=== PATIENT | male | born 1930 | race Caucasian/White ===

== ENCOUNTER 2017-07-22 18:23 | Inpatient (IN) ==
[2017-07-22] MEDS ORDERED: Aspirin 81 MG TAB.CHEW PO ONE (19:04)
--- NOTE | 2017-07-22 19:04 | Emergency Department Note ---
Disposition Clinical Impression: Elevated troponin, ST segment changes on electrocardiogram Disposition: Admitted As Inpatient Condition: Fair Time of Disposition: 21:02 Chest Pain HPI - General Chief Complaint: ED Chest Pain Stated Complaint: CP/Weakness Time Seen by Provider: 07/22/17 18:26 Source: patient, EMS Mode of arrival: EMS Limitations: no limitations Vital Signs Reviewed: Yes Nursing Notes Reviewed: Yes - History of Present Illness HPI Narrative: 78-year-old male presented to the ED from the [place] via EMS for elevated troponins and chest pain. Upon arrival he is not having any chest pain at this time. They stated that he had an increasing troponin from 0.0-2.06. They did give him a baby aspirin while there. Patient has had a recent negative stress test as well as echocardiogram at the [place] he was not given any nitroglycerin while there. He states that the chest pain started a couple days ago and this has been slow and increasing pain. He states at one time it is probably 5 out of 10 nonradiating substernal. He stated there was no left arm or jaw pain. He states there is no nausea or vomiting. He has no other complaints at this time patient only has a history of hypertension hyperlipidemia. Severity scale (1-10): 0 - Related Data Home Medications Medication Instructions Recorded Confirmed Acetaminophen [Tylenol] 650 mg PO Q6HR PRN 07/22/17 07/22/17 Aspirin Enteric Coated [Aspirin EC] 81 mg PO DAILY 07/22/17 07/22/17 Atorvastatin Calcium [Lipitor] 80 mg PO HS 07/22/17 07/22/17 Indapamide [Lozol] 2.5 mg PO DAILY 07/22/17 07/22/17 Lactose-Reduced Food [Ensure Plus] 1 bottle PO DAILY 07/22/17 07/22/17 Meclizine HCl [Verticalm] 25 mg PO TID PRN 07/22/17 07/22/17 Multivitamin [Multi-Day Vitamins] 1 each PO DAILY 07/22/17 07/22/17 Potassium Chloride [K-Tab ER] 20 meq PO DAILY 07/22/17 07/22/17 Primidone [Mysoline] 50 mg PO Q8HR 07/22/17 07/22/17 Propranolol HCl 40 mg PO BID 07/22/17 07/22/17 Tamsulosin [Flomax] 0.4 mg PO HS 07/22/17 07/22/17 clonazePAM [Klonopin] 0.5 mg PO HS 07/22/17 07/22/17 hydrOXYzine pamoate [HydrOXYzine 25 mg PO DAILY PRN 07/22/17 07/22/17 Pamoate] Allergies Allergy/AdvReac Type Severity Reaction Status Date / Time gabapentin AdvReac See Verified 07/22/17 19:07 Comments All systems ED: reviewed and negative except as stated. Constitutional: Denies: fever, chills, weakness, weight change Eyes: Denies: eye pain, eye discharge, vision change ENT ED: Denies: ear pain, throat pain, dental pain, hearing loss, epistaxis, congestion, dysphagia Cardiovascular: Reports: chest pain (Earlier today but not currently.). Denies : palpitations, dyspnea on exertion, edema, syncope Respiratory: Denies: cough, dyspnea, wheezes, hemoptysis, stridor Gastrointestinal: Denies: abdominal pain, nausea, vomiting, diarrhea, constipation, hematemesis, melena, hematochezia Genitourinary: Denies: urgency, dysuria, frequency, hematuria Musculoskeletal: Denies: back pain, neck pain, arthralgia, myalgia Integumentary: Denies: rash, abrasion, lesions Neurological: Denies: headache, weakness, numbness, paresthesias, confusion, abnormal gait, vertigo Psychiatric: Denies: anxiety, depression, suicidal thoughts, homicidal thoughts , auditory hallucinations, visual hallucinations Endocrine: Denies: fatigue Hematological/Lymphatic: Denies: easy bleeding, easy bruising Allergic/Immunologic: Denies: facial swelling, urticaria Chest Pain PMH - Past Medical History Medical history: Reports: coronary artery disease, diabetes, hyperlipidemia, hypertension, other Psychiatric history: Reports: no psych history - Social History Smoking Status: Former smoker Alcohol use: Reports: none Drug use: Reports: none Physical Exam - General Limitations: no limitations General appearance: alert - Head Head exam: atraumatic, normocephalic, normal inspection - Eye Eye exam: Present: normal appearance, PERRL, EOMI - ENT ENT exam: normal exam, normal oropharynx, mucous membranes moist - Neck Neck exam: Present: normal inspection, full ROM, trachea midline - Chest Chest inspection: Present: normal inspection, symmetric chest wall rise - Respiratory Respiratory exam: Present: normal lung sounds bilaterally - Cardiovascular Cardiovascular exam: Present: regular rate, normal rhythm, normal heart sounds - Abdominal Exam Abdominal exam: Present: soft, Non-Tender, normal bowel sounds. Absent: tenderness, distention, guarding, rebound, rigidity - Extremities Exam Extremities exam: Present: normal inspection, full ROM. Absent: tenderness, pedal edema - Back Exam Back exam: Present: normal inspection, full ROM. Absent: tenderness, CVA tenderness (R), CVA tenderness (L) - Neurological Exam Neurological exam: Present: alert, oriented X3 - Skin Skin exam: Present: warm, dry, intact, normal color Course Course Narrative: 86-year-old male presents to the ED complaining of chest pain. He upon arrival did not have any chest pain but did have elevated troponin at the [place]. We will repeat the troponin, as the last one from the [place] was 0.06 the one previously 3 hours prior to that was 0.03. We also get an EKG. Chest x-ray was done which showed no acute findings. All other labs were normal for him. We are not and repeat those at this time. We will contact the aerospace project engineer most likely to have this patient further examined. - Reevaluation(s) Reevaluation #1: Second troponin came back at 0.10 which is elevated from the one at the [place]. Repeat EKG was done which all show sodium ST elevation and depression. We will contact Dr. Ryan and sent him the EKGs so he can make a decision if he wants to do the catheterization today. Patient is still pain free. And is now getting the heparin. We did not do heparin bolus as he was given Lovenox at the [place] prior to arrival. And also still given the Nitropaste. - Consultations Consultation #1: Consulted the aerospace project engineer and spoke with Dr. Ryan who said that he wanted a repeat troponin and repeat EKG. He said if the troponin is elevated to call him back. He also recommended to start on a heparin drip and also give him nitroglycerin paste to help lower the blood pressure. He said then to admit to the hospitalist service and consult cardiology. Time: 19:15 Consultation #2: Dr. Ryan called back after being paged multiple times after I sent the text message of the EKGs to him. and he stated that the ST elevation is most likely from an old infarct and he is not going to do the catheter today and wants to continue with the management plan admit to the hospitalist. Time: 20:49 Consultation #3: Spoke with Dr. Liu the hospitalist explained to Him the patient and I spoke with Dr. Ryan. They agreed to accept the patient and consult with cardiology. Explain the assessment and plan to them and they understand this. Time: 20:49 Vital Signs Temperature 98.9 F 07/22/17 18:24 Pulse Rate 60 07/22/17 18:24 Respiratory Rate 16 07/22/17 18:24 Blood Pressure 173/87 07/22/17 18:24 O2 Sat by Pulse Oximetry 97 07/22/17 18:24 Temperature 97.6 F 07/22/17 22:23 Pulse Rate 66 07/22/17 22:23 Respiratory Rate 15 07/22/17 22:23 Blood Pressure 144/76 07/22/17 22:23 O2 Sat by Pulse Oximetry 98 07/22/17 22:23 Oxygen Delivery Oxygen Delivery Nasal Cannula Chest Pain - MDM Narrative Medical decision making narrative: 6-year-old male presents to the ED complaining of elevated troponin coming from the [place] via EMS. He did have chest pain when he arrived to the [place] but did not when he arrived here to the emergency Department. Chest x-ray as well as normal labs were done at the [place] prior to arrival and we reviewed those in his chart that was given here. So those were not done here. They stated he had a troponin of 0.02 that elevated to 0.06 3 hours later. We did EKG when he arrived which showed ST elevation in leads V1 through V3 and ST depression in V5 through V6. Upon the second troponin that we did here in the emergency department being elevated to 1.0 we decided to repeat EKG. Dr. Ryan was consulted and refers have the elevated troponin. He recommended we start her on heparin and nitro paste due to his hypertension. We did this and he also recommended that we call him after the second troponin to be sure that he did not want do a catheter. Patient was still pain free at this time so we contacted Dr. Ryan and he asked that I send the EKGs to him. This occurred at 1958. We then paged him multiple times and he never pays back. When he did contact me the last time he stated that he detected name but I never did get a text message on my phone. He stated that because the patient is still pain free at this time we will not go ahead with activating the STEMI alert and they will see the patient in the morning as he is artery on heparin and has been Nitropaste on. I relayed this to the patient and the patient agrees with this plan. I spoke with Dr. Liu the admitting hospitalist who agreed to accept the patient with a cardiology consult. Patient was admitted and is still chest pain-free he is stable at this time and vital signs are also stable. - Medical Records Medical records reviewed: Yes I reviewed the patient's medical records. - Lab Data Lab results reviewed: Yes I reviewed the patient's lab results. Result diagrams: 07/22/17 18:35 Lab Results 07/22/17 07/22/17 07/22/17 Range/Units 18:35 18:35 18:35 WBC 4.3 (4.3-11.1) K/mcL RBC 3.58 L (4.19-5.50) M/mcL Hgb 12.4 L (12.9-16.9) g/dL Hct 36.2 L (37.5-50.1) % MCV 101.1 H (83.0-100.0) fL MCH 34.6 H (28.0-33.3) pg MCHC 34.3 (31.6-35.5) g/dL RDW 13.3 (11.5-14.5) % Plt Count 185 (140-400) K/mcL MPV 10.0 (9.4-12.4) fL Immature Plt Fraction 2.7 (1.1-6.1) % PT 12.2 H (9.4-12.1) Seconds INR 1.1 APTT 37.5 H (26.0-36.0) Seconds Troponin I 0.10 H* (0-0.03) ng/mL - Radiology Data Radiology results reviewed: Yes I reviewed the patient's radiology results. - EKG Data EKG attestation: Yes I reviewed and interpreted this EKG. EKG results narrative: First EKG done at 1826 and reviewed by myself and the attending showed normal sinus rhythm at a rate of 68, ID interval 174, QRS 114, QTC 414 with a left shift. There is signs of ST elevation in leads V1 through V3 with ST depression in V5 through V6. No signs of any T-wave abnormalities. No signs of heart strain, hypertrophy, heart blocks. There is no old EKG to compare with. Repeat EKG was done after second elevated troponin at 1944 which was reviewed myself and the attending which showed normal sinus bradycardia. Rate of 55, ID interval 188, QRS 116, QTC 447 with a left shift. There was ST elevation in leads V1 through V3 and ST depression in V5 through V6 that is the same as the previous EKG. There is no other acute changes when compared with the earlier EKG. EKG shows normal: sinus rhythm, intervals, QRS complexes Rate: normal Rhythm: NSR [place]/QRS: left axis deviation ST segment elevation in: v1, v2, v3 ST segment depression in: v5, v6 When compared to previous EKG there are: previous EKG unavailable Interpretation: nonspecific ST-T wave changes (After speaking with Dr. Ryan the addiction psychiatrist he believes this to be an old ischemic changes.) Heart Score - Score History: Moderately Suspicious EKG: Non Specific repolarisation Disturbance Age: Greater than 65 Risk Factors: Equal/Greater than 3 risk factor or history of atherosclerotic disease Troponin: 1-3x normal limit HEART Score Total: 7 S.B.A.R. - S.B.A.R. Transition of Care: Spoke with Dr. Liu the hospitalist and explained To him history and physical as well as assessment and plan on the patient also stated that I spoke with Dr. Ryan the addiction psychiatrist on what the expected management is placed in his agreed to accept the patient to the hospitalist service and a telemetry bed. Situation: Demographics, MOA Background: Presenting Complaint, Relevant PMH, Meds, & Allergies Assessment: Vital Signs, Course and respsone to treatment, Exam Concerns, Patient/Family Expectation, Pertinant Lab Results, Outstanding Labs Recommendation: Barrier(s) to disposition, Recommendation based on pending studies, treatments, or consults S.B.A.R. Report Given to: Dr. Liu S.B.A.R. Repor Time: 21:03 Attestation Statement - Attestation Attestation: I, Crow Valadez, examined this patient and my medical decision-making was reviewed with the DELIN[employer] PREVENTION SOCIAL WORKER/PA/Advanced Practice Nurse/Resident Physician. I agree with the documented findings, disposition and treatment plan as described except to the extent set forth below. 78-year-old male presents to emergency department from the [place] after being evaluated for chest pain and having a returned positive troponin. Patient initial troponin returned normal at 0.0 two-hour repeat returned positive at 0.06. She is pain-free in the emergency department now. His EKG shows sinus rhythm with rate of [address] elevation in leads V1 through V3 with ST depressions in leads V5 and 6. This EKG was directed to the interventionalist after the resident spoke with him regarding the patient's case and presentation. Dr. Ryan recommended the patient be admitted to the hospitalist with heparin and he would evaluate the patient in the morning. Patient continued to be chest pain free throughout the stay in the emergency department.
[2017-07-22] MEDS ORDERED: *HR* Heparin 5,000 UNIT/ML VIAL IVP ONE (19:11)
[2017-07-22] MEDS ORDERED: *HR* Heparin 5,000 UNIT/ML VIAL IVP PRN ×2 (19:11)
[2017-07-22] MEDS ORDERED: Nitroglycerin 1 INCH/GM PACKET TP ONE (19:12)
[2017-07-22 19:33] LABS: Hematocrit 36.2 % (37.5-50.1); Hemoglobin 12.4 g/dL (12.9-16.9); Immature Platelets 2.7 % (1.1-6.1); Mean Corpuscular HGB Conc 34.3 g/dL (31.6-35.5); Mean Corpuscular Hemoglobin 34.6 pg (28.0-33.3); Mean Corpuscular Volume 101.1 fL (83.0-100.0); Red Blood Count 3.58 M/mcL (4.19-5.50); Red Cell Distribution Width 13.3 % (11.5-14.5)
[2017-07-22 19:37] LABS: INR 1.1; Prothrombin Time 12.2 Seconds (9.4-12.1)
[2017-07-22 19:39] LABS: Activated Partial Thrombo Time 37.5 Seconds (26.0-36.0)
[2017-07-22] MEDS: Heparin 25,000 UNIT/500 ML D5W 25,000 UNIT/500 ML MLS IVC SCH (19:54)
[2017-07-23] MEDS ORDERED: Acetaminophen 325 MG TABLET PO PRN (04:03)
[2017-07-23] MEDS ORDERED: Nitroglycerin 0.4 MG TAB.SUBL SL PRN (04:03)
[2017-07-23] MEDS ORDERED: *HR* Morphine 2 MG/ML SYRINGE IVP PRN (04:03)
[2017-07-23] MEDS ORDERED: Dextrose Gel 15 GM PO PRN ×2 (04:03)
[2017-07-23] MEDS ORDERED: Naloxone 0.4 MG/ML INJ IVP PRN (04:03)
[2017-07-23] MEDS ORDERED: Ondansetron 4 MG/2 ML VIAL IVP PRN (04:03)
[2017-07-23] MEDS ORDERED: *HR* Dextrose 50 % in Water (Syg) 50 ML SYRINGE IVP PRN (04:03)
[2017-07-23] MEDS ORDERED: D5% in Water 1,000 ML IVC PRN (04:03)
--- NOTE | 2017-07-23 04:03 | Internal Med History&Physical ---
<Christopher Maguire - Last Filed: 07/23/17 04:12> Date of Encounter: 07/23/17 Time of Encounter: 03:40 Assessment and Plan (1) NSTEMI (non-ST elevated myocardial infarction) Current visit: Yes Status: Acute Patient presented to the CT originally reporting and had episodic chest pain since Wednesday. Reports substernal radiating to his jaw, made worse by exertion. He was found to have elevated troponins (0.04 -> 0.06) is a concerning EKG changes. After the second troponin came back even higher he was transferred for further workup. At [place] he had further elevated troponins ( 0.10) 8 EKG was suggestive of recent heart attack. Interventional cardiology was consulted and felt he did not need to go to catheter lab at that time. Patient was placed on a heparin drip with cardiology consult pending. Patient has no complaints of chest pain at this time. Continue heparin drip We will consult cardiology Continue daily aspirin as patient received full aspirin last night Supplemental oxygen as needed, wean as tolerated Cardiogram Continue to trend troponins Continue home atorvastatin 80 mg We will continue home beta campos when heart rate increases Nothing by mouth for now (2) Diabetes mellitus Current visit: Yes Status: Acute Patient reportedly type II diabetic, no insulin or oral hypoglycemics on his home medicine list. We will start low-dose Lasix scale insulin Qualifiers: Diabetes mellitus type: type 2 Diabetes mellitus complication status: with unspecified complications Diabetes mellitus intermediate school teacher insulin use: without intermediate school teacher use Qualified Code(s): E11.8 - Type 2 diabetes mellitus with unspecified complications (3) HTN (hypertension) Current visit: Yes Status: Acute Patient on propranolol at home. Will add when patient heart rate improves as he has a heart rate of 55 currently Qualifiers: Hypertension type: essential hypertension Qualified Code(s): I10 - Essential (primary) hypertension (4) DVT prophylaxis Current visit: Yes Status: Acute Patient on heparin drip on account of an STEMI (5) Benign essential tremor Current visit: Yes Status: Acute Stable Internal Medicine - H&P: HPI Chief complaint: Chest Pain, elevated trops Admitted From: Long-term Nursing Facility History of present illness: Mr. Lopez is a 86 year old male with prior medical history of CAD, diabetes, and GERD who presents to [facility] from the [facility] due to chest pain and elevated troponins. He states he had chest pain beginning Wednesday while at rest there was substernal in nature. He describes it as a throbbing and radiating into his jaw. He said it was severe and would be made worse by walking or exerting himself. He states it was somewhat episodic in that first episode on Wednesday was the worst lasting 45 minutes. It did bother him again Wednesday morning at roughly 1 AM and woke him from sleep and again later in the day. These episodes did not last long and were not as severe. He denies having diaphoresis, chills, shortness of breath, or nausea. He reports having a slight headache but not that significant. He was brought to [place]. At the CT his troponins were trending upward starting at 0.04 and then 0.[address] segment changes on EKG. He was transferred to [place] where his next troponins found to be 0.10 and repeat EKGs showed some T-wave and ST segment changes. Interventional radiology was consulted and reviewed the chest x-rays but did not feel that he needs to be seen last night. He was started on heparin drip and reports he is now chest pain-free. Past Med Surg Social Fam HX - Past Medical History Medical history: coronary artery disease, diabetes, hyperlipidemia, hypertension , other Psychiatric history: no psych history - Social History Smoking Status: Former smoker Smokeless Tobacco Status: No Alcohol use: none Drug use: none Internal Medicine - H&P: Meds Acetaminophen [Tylenol] 650 mg PO Q6HR PRN 07/22/17 [History] Aspirin Enteric Coated [Aspirin EC] 81 mg PO DAILY 07/22/17 [History] Atorvastatin Calcium [Lipitor] 80 mg PO HS 07/22/17 [History] Lactose-Reduced Food [Ensure Plus] 1 bottle PO DAILY 07/22/17 [History] Meclizine HCl [Verticalm] 25 mg PO TID PRN 07/22/17 [History] Multivitamin [Multi-Day Vitamins] 1 each PO DAILY 07/22/17 [History] Potassium Chloride [K-Tab ER] 20 meq PO DAILY 07/22/17 [History] RX: Indapamide [Lozol] 2.5 mg PO DAILY 07/22/17 [History] RX: Primidone [Mysoline] 50 mg PO Q8HR 07/22/17 [History] RX: Propranolol HCl 40 mg PO BID 07/22/17 [History] RX: hydrOXYzine pamoate [HydrOXYzine Pamoate] 25 mg PO DAILY PRN 07/22/17 [ History] Tamsulosin [Flomax] 0.4 mg PO HS 07/22/17 [History] clonazePAM [Klonopin] 0.5 mg PO HS 07/22/17 [History] 3 Allergy/AdvReac Type Severity Reaction Status Date / Time gabapentin AdvReac See Verified 07/22/17 19:07 Comments Review of systems: Gen: Denies fever, denies chills, denies weakness, denies fatigue CV: Reports chest pain made worse by exertion, denies palpitations Resp: Denies shortness of breath, denies dyspnea, denies pleuritic pain, denies coughing, denies changes in phlegm production, denies wheeze GI: Denies nausea, denies vomiting, denies abdominal pain, denies constipation, denies diarrhea, denies hematochezia, denies melena Neuro: Reports headache, denies confusion, denies focal weakness, denies numbness, denies tingling, denies vision changes : Denies flank pain, denies dysuria, denies hematuria - Constitutional Vitals: Temp Pulse Resp BP Pulse Ox 97.6 F 66 15 144/76 98 07/22/17 22:23 07/22/17 22:23 07/22/17 22:23 07/22/17 22:23 07/22/17 22:23 Exam: General: Cooperative, pleasant, no acute distress, alert and oriented 3, answers questions appropriately HEENT: Normocephalic, atraumatic, neck supple, trachea midline, Conjunctiva pink , sclera anicteric, EOMI, PERRL, oral mucosa moist, no orophargeal erythema or exudates Respiratory: No accessory muscle usage, clear to auscultation bilaterally, no wheezes/rhonchi/rales appreciated Cardiovascular: Regular rate and rhythm, S1 and S2 present, no murmurs/rubs/ gallops/clicks appreciated, no carotid bruits on auscultation GI/abdominal: Nondistended, nontender, soft, normal bowel sounds, no peritoneal signs Extremities: No calf tenderness, noncyanotic, no pedal edema appreciated, warm, lower extremity pulses palpable and symmetrical Neurological: Alert and oriented 3, no facial droop, no focal deficits Skin: Dry, intact, normal color Internal Med - H&P Results - Labs CBC & Chem 7: 07/22/17 18:35 <Addy Mae - Last Filed: 07/23/17 05:28> Date of Encounter: 07/23/17 Internal Medicine - H&P: HPI History of present illness: Mr. Lopez is a 86 year old male All Systems PM: A 10-system review of systems was performed and is negative for pertinent findings except as documented above in the HPI. - Constitutional Vitals: Temp Pulse Resp BP Pulse Ox 97.6 F 66 15 144/76 98 07/22/17 22:23 07/22/17 22:23 07/22/17 22:23 07/22/17 22:23 07/22/17 22:23 Internal Med - H&P Results - Labs CBC & Chem 7: 07/23/17 04:21 07/23/17 04:21 Labs: Short CBC 07/23/17 Range/Units 04:21 WBC 4.9 (4.3-11.1) K/mcL Hgb 11.6 L (12.9-16.9) g/dL Hct 34.6 L (37.5-50.1) % Plt Count 142 (140-400) K/mcL Neutrophils # 2.2 (1.6-8.9) K/mcL BMP 07/23/17 04:21 Sodium 135 L Potassium 4.0 Chloride 98 Carbon Dioxide 27 BUN 17 Creatinine 0.79 Glucose 111 H Calcium 9.3 Cardiac Enzymes 07/23/17 Range/Units 04:21 Troponin I 0.11 H* (0-0.03) ng/mL - Attending Attestation I examined this patient and my medical decision-making was reviewed with the Resident Physician. I agree with the documented findings, disposition and treatment plan as described except to the extent set forth below. Patient is a 86-year-old male with past medical history coronary artery disease , diabetes, hyperlipidemia and hypertension. He presents to the ED with complaints of chest pain. He was also found to have elevated troponin at the CT. Patient is being admitted for non-ST elevation RI. He is on IV heparin. Aspirin and statin will be continued. Interventional cardiology was consulted, advised to continue heparin. Patient may need heart catheter in a.m. No other acute events or complaints.
[2017-07-23 04:30] LABS: Basophils % 0.6 %; Eosinophils # 0.3 K/mcL (0.0-0.6); Eosinophils % 5.1 %; Hematocrit 34.6 % (37.5-50.1); Hemoglobin 11.6 g/dL (12.9-16.9); Immature Granulocytes % 0.2 % (0-4); Lymphocytes # 1.9 K/mcL (0.6-4.6); Lymphocytes % 39.1 %; Mean Corpuscular HGB Conc 33.5 g/dL (31.6-35.5); Mean Corpuscular Hemoglobin 34.3 pg (28.0-33.3); Mean Corpuscular Volume 102.4 fL (83.0-100.0); Mean Platelet Volume 9.1 fL (9.4-12.4); Monocytes # 0.5 K/mcL (0.0-1.3); Monocytes % 10.4 %; Neutrophils # 2.2 K/mcL (1.6-8.9); Platelet Count 142 K/mcL (140-400); Red Blood Count 3.38 M/mcL (4.19-5.50); Red Cell Distribution Width 13.5 % (11.5-14.5); Segmented Neutrophils % 44.6 %
[2017-07-23 04:40] LABS: Hemoglobin A1C 5.8 %
[2017-07-23 04:44] LABS: BUN/Creatinine Ratio 22 (6-26); Blood Urea Nitrogen 17 mg/dL (8-26); Calcium 9.3 mg/dL (8.6-10.8); Carbon Dioxide 27 mEq/L (19-29); Chloride 98 mEq/L (98-109); Chol/HDL Ratio 2.1 (0-4.9); Cholesterol 177 mg/dL (< 200); Glucose 111 mg/dL (70-99); HDL Cholesterol 84 mg/dL (40-59); LDL Cholesterol,Calculated 86 mg/dL (0-99); Magnesium 1.5 mg/dL (1.6-2.6); Osmolality,Calculated 282 (280-300); Phosphorous 3.5 mg/dL (2.3-4.7); Sodium 135 mEq/L (136-145); Triglycerides 37 mg/dL (< 150); eGFR For African Americans > 60 (> 60); eGFR For Non-African Americans > 60 (> 60)
[2017-07-23] MEDS ORDERED: Pantoprazole 40 MG VIAL IVP SCH (09:00)
[2017-07-23] MEDS: Multivit/Ca/Min/Fe/FA 1 TAB TABLET PO SCH (09:23)
[2017-07-23] MEDS: Aspirin 81 MG TAB.CHEW PO SCH (09:23)
[2017-07-23] MEDS: Primidone 50 MG TABLET PO SCH ×3 (09:23→23:51)
[2017-07-23] MEDS: Insulin LISPRO 300 UNITS/3 ML VIAL SQ SCH ×3 (09:24→17:03)
--- NOTE | 2017-07-23 10:28 | Cardiology Consult Note ---
Date of Encounter: 07/23/17 Time of Encounter: 10:00 Assessment and Plan (1) NSTEMI (non-ST elevated myocardial infarction) Current Visit: Yes Status: Acute Reports typical chest pain symptoms this past Wednesday and Wednesday. Troponin 0.04, 0.06, 0.10, 0.11. Anterior ST/T wave changes noted on ECG--no old ECG for comparison. Chest pain free upon exam. Cardiac rehab consulted. Hx of negative nuclear stress test with preserved LVEF in 2014. Discussed medical management vs. ischemic evaluation; patient is undecided. Will further review with Dr. Crow Lester. Check echocardiogram to evaluate EF. If no significant abnormalities noted, reasonable to treat medically; patient is agreeable. Continue heparin gtt, asa, and statin. Will add low dose betablocker and plavix. Will continue to follow. (2) HTN (hypertension) Current Visit: Yes Status: Chronic Hypertensive upon presentation, BP 173/87. Will add low dose betablocker, continue to monitor and make changes as necessary. Qualifiers: Hypertension type: essential hypertension Qualified Code(s): I10 - Essential (primary) hypertension Discussion w patient/family: The assessment and plan as outlined above was discussed with the patient and/or family members who expressed understanding and agreement. All questions were answered. Thank you for involving us in the care of your patient. Please call with any questions. The patient will be discussed and reviewed with Dr. Crow Lester; changes to be made accordingly. History of Present Illness Consult date: 07/23/17 Requesting physician: Christopher Maguire Consult reason: Elevated troponin Chief complaint: Chest pain/headache History of present illness: Mr. Lopez is a 86 year old male with PMHx significant for HTN, HLD and tremors who presented to the [place] yesterday with CC of "throbbing headache." He also notes x2 episodes of mid-sternal chest discomfort with radiation to neck/ jaw that started on Wednesday. Episodes of chest discomfort lasted 20-30 minutes, occurred a rest and resolved without intervention. He denies prior history of chest pain/discomfort. Upon arrival to [place], troponin was 0.04, then 0.06. No prior significant cardiac history. He was then sent to [facility]. [facility]--N[facility] stress test (non-exercise) in 2014, was negative for ischemia or infarct, gated EF=64%. Past Med Surg Social Fam HX - Past Medical History Attestation: Yes The following information was validated with the patient. Source: patient Medical history: hyperlipidemia, hypertension, other (tremors) Psychiatric history: no psych history - Past Surgical History Surgical History: herniorrhaphy (bilateral inguinal) - Social History Smoking Status: Former smoker Smokeless Tobacco Status: No Alcohol use: none Drug use: none - Family History Brother Hx Family Cardiac Disorders: Yes ("heart problems" ) Hx Family Neurologic Disorders: Yes (CVA) Medications and Allergies Acetaminophen [Tylenol] 650 mg PO Q6HR PRN 07/22/17 [History] Aspirin Enteric Coated [Aspirin EC] 81 mg PO DAILY 07/22/17 [History] Atorvastatin Calcium [Lipitor] 80 mg PO HS 07/22/17 [History] Indapamide [Lozol] 2.5 mg PO DAILY 07/22/17 [History] Lactose-Reduced Food [Ensure Plus] 1 bottle PO DAILY 07/22/17 [History] Meclizine HCl [Verticalm] 25 mg PO TID PRN 07/22/17 [History] Multivitamin [Multi-Day Vitamins] 1 each PO DAILY 07/22/17 [History] Potassium Chloride [K-Tab ER] 20 meq PO DAILY 07/22/17 [History] Primidone [Mysoline] 50 mg PO Q8HR 07/22/17 [History] Propranolol HCl 40 mg PO BID 07/22/17 [History] Tamsulosin [Flomax] 0.4 mg PO HS 07/22/17 [History] clonazePAM [Klonopin] 0.5 mg PO HS 07/22/17 [History] hydrOXYzine pamoate [HydrOXYzine Pamoate] 25 mg PO DAILY PRN 07/22/17 [History] 3 Allergy/AdvReac Type Severity Reaction Status Date / Time gabapentin AdvReac See Verified 07/22/17 19:07 Comments All Systems Review: A 10-system review of systems was performed and is negative for pertinent findings except as documented above in the HPI. - Cardiovascular Cardiovascular: as per HPI Physical Examination General: Conversant, No Apparent Distress, Other (tremors noted) HEENT: Atraumatic, Normocephaly Cardiac: Reg Rate and Rhythm, Normal S1 and S2 Lungs: Normal Breath Sounds Neuro: Alert and responsive Abdomen: Soft Skin: No rashes noted on visualized skin Musculoskeletal: No Chest Wall Tenderness Extremities: Other (mild BLE edema, pre-tibial) Results 07/23/17 04:21 07/23/17 04:21 Lab Results 07/23/17 08:07 APTT 102.7 H Active Medications Acetaminophen (Tylenol) 650 mg PO Q6HR PRN PRN Reason: Mild Pain (1-3) or fever Stop: 01/22/18 04:04 Aspirin (Aspirin) 81 mg PO DAILY PRANAY Stop: 01/22/18 09:01 Last Admin: 07/23/17 09:23 Dose: 81 mg Atorvastatin Calcium (Lipitor) 80 mg PO HS PRANAY Stop: 01/22/18 21:01 Clonazepam (Klonopin) 0.5 mg PO HS PRANAY Stop: 01/22/18 21:01 Heparin Sodium (Porcine) (Heparin) 4,000 unit IVP Q6HR PRN PRN Reason: SEE COMMENTS Stop: 01/21/18 19:12 Heparin Sodium (Porcine) (Heparin) 2,000 unit IVP Q6H PRN PRN Reason: SEE COMMENTS Stop: 01/21/18 19:12 Heparin Sodium/Dextrose (Heparin 25,000 Unit/500 Ml D5w) 25,000 unit in 500 mls @ 18.18 mls/hr IVC .Q24H PRANAY; 12 UNIT/KG/HR PRN Reason: Protocol Stop: 01/21/18 19:16 Last Titration: 07/23/17 09:39 Dose: 7.98 unit/kg/hr, 12.1 mls/hr Dextrose (Dextrose 5%) 1,000 mls @ 100 mls/hr IVC .Q10H PRN PRN Reason: HYPOGLYCEMIA Stop: 01/22/18 04:04 Insulin Human Lispro (Humalog) 0 units SQ HS PRANAY PRN Reason: Protocol Stop: 01/22/18 21:01 Insulin Human Lispro (Humalog) 0 units SQ TIDAC PRANAY PRN Reason: Protocol Stop: 01/22/18 07:31 Last Admin: 07/23/17 09:24 Dose: Not Given Meclizine HCl (Antivert) 25 mg PO TID PRN PRN Reason: DIZZINESS Morphine Sulfate (Morphine Sulfate) 4 mg IVP Q3H PRN PRN Reason: Severe Pain (7-10) Stop: 01/22/18 04:04 Multivitamins/Calcium (Thera M Plus) 1 tab PO DAILY PRANAY Stop: 01/22/18 09:01 Last Admin: 07/23/17 09:23 Dose: 1 tab Naloxone HCl (Narcan) 0.4 mg IVP Q2MIN PRN PRN Reason: Opioid Reversal Stop: 01/22/18 04:04 Nitroglycerin (Nitroglycerin) 0.4 mg SL Q5MIN PRN PRN Reason: Chest Pain Stop: 01/22/18 04:04 Ondansetron HCl (Zofran) 4 mg IVP Q8HR PRN PRN Reason: Nausea And Vomiting Stop: 01/22/18 04:04 Pantoprazole Sodium (Protonix) 40 mg IVP DAILY [facility] Stop: 01/22/18 09:01 Last Admin: 07/23/17 09:23 Dose: 40 mg Potassium Chloride (Potassium Chloride) 20 meq PO DAILY [facility] Stop: 01/22/18 09:01 Last Admin: 07/23/17 09:23 Dose: 20 meq Primidone (Mysoline) 50 mg PO Q8HR [facility] Stop: 01/22/18 08:01 Last Admin: 07/23/17 09:23 Dose: 50 mg - Imaging and Cardiology Echo: pending - EKG Interpretation EKG results cardiology: personally reviewed Consult Discharge Plan - Plan [facility]errals: [facility] [Primary Care Provider] -
[2017-07-23] MEDS: Metoprolol XL (24 HR) Succ 25 MG TAB.ER.24H PO SCH (13:42)
--- NOTE | 2017-07-23 17:57 | Internal Med Progress Note ---
Date of Encounter: 07/23/17 Time of Encounter: 10:00 - Assessment and plan (1) NSTEMI (non-ST elevated myocardial infarction) Current Visit: Yes Status: Acute Assessment and plan: Chest pain-free now. Cardiology consult appreciated. We will continue heparin drip, aspirin, Plavix, beta campos, and statin. Continue closely cardiac monitoring. Patient is not at high risk because he is on heparin drip, need close monitoring (2) DVT prophylaxis Current Visit: Yes Status: Acute Assessment and plan: Patient is on heparin drip (3) Diabetes mellitus Current Visit: Yes Status: Acute Assessment and plan: Patient is at diet control at home. Continue diabetic diet. Sliding-scale coverage Qualifiers: Diabetes mellitus type: type 2 Diabetes mellitus complication status: with unspecified complications Diabetes mellitus superintendent container terminal insulin use: without senior living use Qualified Code(s): E11.8 - Type 2 diabetes mellitus with unspecified complications (4) HTN (hypertension) Current Visit: Yes Status: Chronic Assessment and plan: Continue home medications Qualifiers: Hypertension type: essential hypertension Qualified Code(s): I10 - Essential (primary) hypertension (5) Benign essential tremor Current Visit: Yes Status: Acute - Time Spent With Patient Greater than 35 minutes - Subjective Interval history: Patient is a 86-year-old male admitted for NSTEMI. Past medical history is significant for diabetes, hypertension. Patient was seen and examined. Denies chest pain or shortness of breath at this point. State has episode of chest pain on Wednesday. Vitals are stable. Cardiology consult appreciated. Recommendation will be followed. - Constitutional Vitals: Temp Pulse Resp BP Pulse Ox 97.6 F 66 15 144/76 98 07/22/17 22:23 07/22/17 22:23 07/22/17 22:23 07/22/17 22:23 07/22/17 22:23 General appearance: Present: A&O X 3, no acute distress, answers questions appropriately - Head Head exam: Present: atraumatic, normocephalic - Eye Eye exam: Present: PERRL, conjuntiva pink, sclera anicteric Pupils: Present: PERRL - Neck Neck exam general surgery: Present: supple, trachea midline. Absent: lymphadenopathy - Respiratory Respiratory exam: Present: CTAB. Absent: accessory muscle use, rales, rhonchi, wheezes - Cardiovascular Cardiovascular exam: Present: RRR, +S1, +S2. Absent: diastolic murmur, gallop, rubs, systolic murmur - GI/Abdominal GI/Abdominal exam: Present: normal bowel sounds, soft, no peritoneal signs. Absent: distended, tenderness - Extremities Exam Extremities exam: Present: warm, radial pulses palpable and symmetrical. Absent : calf tenderness, cyanotic, pedal edema - Neurological Exam Neurological exam: Present: CN II-XII intact, oriented X3, no focal deficits. Absent: pronater drift, facial droop, speech deficit - Skin Skin exam: Present: dry, intact Internal Medicine: Result - Labs CBC & Chem 7: 07/23/17 04:21 07/23/17 04:21 Labs: Cardiac Enzymes 07/23/17 Range/Units 10:30 Troponin I 0.07 H* (0-0.03) ng/mL - ABG Interpretation ABG results: PT/INR, D-dimer PT 12.2 Seconds (9.4-12.1) H 07/22/17 18:35 Consult Discharge Plan - Plan [facility]errals: [facility] [Primary Care Provider] -
[2017-07-23] MEDS ORDERED: clonazePAM 0.5 MG TABLET PO SCH (21:00)
[2017-07-23] MEDS ORDERED: Insulin LISPRO 300 UNITS/3 ML VIAL SQ SCH (21:00)
[2017-07-24] MEDS: Heparin 25,000 UNIT/500 ML D5W 25,000 UNIT/500 ML MLS IVC SCH (05:19)
[2017-07-24 06:04] LABS: Basophils % 0.4 %; Eosinophils # 0.2 K/mcL (0.0-0.6); Eosinophils % 4.7 %; Hematocrit 30.7 % (37.5-50.1); Hemoglobin 10.6 g/dL (12.9-16.9); Immature Granulocytes % 0.2 % (0-4); Immature Platelets 2.3 % (1.1-6.1); Lymphocytes # 1.6 K/mcL (0.6-4.6); Lymphocytes % 32.2 %; Mean Corpuscular HGB Conc 34.5 g/dL (31.6-35.5); Mean Corpuscular Hemoglobin 35.1 pg (28.0-33.3); Mean Corpuscular Volume 101.7 fL (83.0-100.0); Mean Platelet Volume 9.2 fL (9.4-12.4); Monocytes # 0.6 K/mcL (0.0-1.3); Monocytes % 11.3 %; Neutrophils # 2.5 K/mcL (1.6-8.9); Platelet Count 155 K/mcL (140-400); Red Blood Count 3.02 M/mcL (4.19-5.50); Red Cell Distribution Width 13.4 % (11.5-14.5); Segmented Neutrophils % 51.2 %
[2017-07-24 06:16] LABS: BUN/Creatinine Ratio 22 (6-26); Blood Urea Nitrogen 17 mg/dL (8-26); Calcium 9.1 mg/dL (8.6-10.8); Carbon Dioxide 27 mEq/L (19-29); Chloride 97 mEq/L (98-109); Glucose 108 mg/dL (70-99); Osmolality,Calculated 276 (280-300); Potassium 3.9 mEq/L (3.5-4.5); Sodium 132 mEq/L (136-145); eGFR For African Americans > 60 (> 60); eGFR For Non-African Americans > 60 (> 60)
[2017-07-24] MEDS: Insulin LISPRO 300 UNITS/3 ML VIAL SQ SCH ×2 (07:51→11:37)
[2017-07-24 08:49] VITALS: BP 120/66
[2017-07-24] MEDS: Multivit/Ca/Min/Fe/FA 1 TAB TABLET PO SCH (09:00)
[2017-07-24] MEDS: Metoprolol XL (24 HR) Succ 25 MG TAB.ER.24H PO SCH (09:00)
[2017-07-24] MEDS: Primidone 50 MG TABLET PO SCH (09:00)
[2017-07-24] MEDS: Aspirin 81 MG TAB.CHEW PO SCH (09:00)
--- NOTE | 2017-07-24 10:00 | Cardiology Progress Note ---
Date of Encounter: 07/24/17 Time of Encounter: 08:30 Assessment and Plan (1) NSTEMI (non-ST elevated myocardial infarction) Current Visit: Yes Status: Acute Reports typical chest pain symptoms this past Wednesday and Wednesday. Peak troponin 0.11 with downward trend. Anterior ST/T wave changes noted on ECG- -no old ECG for comparison. Chest pain free upon exam. Cardiac rehab consulted. Hx of negative nuclear stress test with preserved LVEF in 2014. TTE: EF 55% normal wall motion. Discussed medical management vs. ischemic evaluation; patient elects to continue medical management given his advanced age and lack of symptoms. EF preserved with normal wall motion and he is chest pain free. Continue asa, statin, betablocker, and plavix. Can consider addition of long- acting nitrate in the future if needed. No further testing warranted from Cardiology standpoint; will sign-off. Will coordinate appt. in the outpatient setting. (2) HTN (hypertension) Current Visit: Yes Status: Chronic Hypertensive upon presentation, BP 173/87. Control improved with addition of BB. Qualifiers: Hypertension type: essential hypertension Qualified Code(s): I10 - Essential (primary) hypertension Discussion w patient/family: The assessment and plan as outlined above was discussed with the patient and/or family members who expressed understanding and agreement. All questions were answered. Thank you for involving us in the care of your patient. Please call with any questions. The patient was discussed and reviewed with Dr. Crow Lester; Cardiology will sign-off, please call with questions. Subjective Principal diagnosis: NSTEMI Interval history: Seen and examined. Denies recurrent chest pain/discomfort or headache overnight. He reports he feels well today and is ready for discharge. Objective Vital Signs, Last 4 Hours Pulse Resp BP Pulse Ox 07/24/17 09:00 96 07/24/17 08:48 66 18 120/66 97 General: Conversant, No Apparent Distress HEENT: Atraumatic, Normocephaly, Mucus Membranes Moist Neck: No JVD, Normal carotid pulses Cardiac: Reg Rate and Rhythm, Normal S1 and S2, No Murmur Lungs: Normal Breath Sounds, No Wheeze, Rales, Rhonchi Neuro: Alert and responsive, No focal deficits noted Abdomen: Soft, Non-Tender Skin: No rashes noted on visualized skin Musculoskeletal: No Chest Wall Tenderness Extremities: No Clubbing, No Cyanosis, No Edema, Normal Pulses Results 07/24/17 05:55 07/24/17 05:55 Lab Results 07/23/17 07/23/17 07/23/17 10:30 16:48 22:38 WBC Hgb Hct Plt Count APTT 62.5 H 52.0 H Sodium Potassium Chloride Carbon Dioxide BUN Creatinine Glucose Calcium Troponin I 0.07 H* 07/24/17 07/24/17 07/24/17 05:55 05:55 05:55 WBC 4.9 Hgb 10.6 L Hct 30.7 L Plt Count 155 APTT 91.9 H D Sodium 132 L Potassium 3.9 Chloride 97 L Carbon Dioxide 27 BUN 17 Creatinine 0.79 Glucose 108 H Calcium 9.1 Troponin I Active Medications Acetaminophen (Tylenol) 650 mg PO Q6HR PRN PRN Reason: Mild Pain (1-3) or fever Stop: 01/22/18 04:04 Aspirin (Aspirin) 81 mg PO DAILY PRANAY Stop: 01/22/18 09:01 Last Admin: 07/24/17 09:00 Dose: 81 mg Atorvastatin Calcium (Lipitor) 80 mg PO HS [facility] Stop: 01/22/18 21:01 Last Admin: 07/23/17 23:03 Dose: 80 mg Clonazepam (Klonopin) 0.5 mg PO HS [facility] Stop: 01/22/18 21:01 Last Admin: 07/23/17 23:04 Dose: 0.5 mg Clopidogrel Bisulfate (Plavix) 75 mg PO DAILY [facility] Stop: 01/22/18 10:46 Last Admin: 07/24/17 09:00 Dose: 75 mg Dextrose/Water (Dextrose 50% (Syg)) 25 ml IVP AD PRN PRN Reason: Hypoglycemia Stop: 01/22/18 04:04 Glucagon (Glucagen) 1 mg IM ONCE PRN PRN Reason: Hypoglycemia Stop: 01/22/18 04:04 Glucose (Gluctose) 15 gm PO ONCE PRN PRN Reason: Hypoglycemia Stop: 01/22/18 04:04 Glucose (Gluctose) 30 gm PO ONCE PRN PRN Reason: Hypoglycemia Stop: 01/22/18 04:04 Heparin Sodium (Porcine) (Heparin) 4,000 unit IVP Q6HR PRN PRN Reason: SEE COMMENTS Stop: 01/21/18 19:12 Heparin Sodium (Porcine) (Heparin) 2,000 unit IVP Q6H PRN PRN Reason: SEE COMMENTS Stop: 01/21/18 19:12 Last Admin: 07/23/17 23:48 Dose: 2,000 unit Heparin Sodium/Dextrose (Heparin 25,000 Unit/500 Ml D5w) 25,000 unit in 500 mls @ 18.18 mls/hr IVC .Q24H PRANAY; 12 UNIT/KG/HR PRN Reason: Protocol Stop: 01/21/18 19:16 Last Titration: 07/24/17 07:03 Dose: 9.96 unit/kg/hr, 15.1 mls/hr Dextrose (Dextrose 5%) 1,000 mls @ 100 mls/hr IVC .Q10H PRN PRN Reason: HYPOGLYCEMIA Stop: 01/22/18 04:04 Insulin Human Lispro (Humalog) 0 units SQ HS [facility] PRN Reason: Protocol Stop: 01/22/18 21:01 Last Admin: 07/23/17 23:04 Dose: Not Given Insulin Human Lispro (Humalog) 0 units SQ TIDAC [facility] PRN Reason: Protocol Stop: 01/22/18 07:31 Last Admin: 07/24/17 07:51 Dose: Not Given Meclizine HCl (Antivert) 25 mg PO TID PRN PRN Reason: DIZZINESS Metoprolol Succinate (Toprol Xl) 12.5 mg PO DAILY [facility] Stop: 01/22/18 10:46 Last Admin: 07/24/17 09:00 Dose: 12.5 mg Morphine Sulfate (Morphine Sulfate) 4 mg IVP Q3H PRN PRN Reason: Severe Pain (7-10) Stop: 01/22/18 04:04 Multivitamins/Calcium (Thera M Plus) 1 tab PO DAILY [facility] Stop: 01/22/18 09:01 Last Admin: 07/24/17 09:00 Dose: 1 tab Naloxone HCl (Narcan) 0.4 mg IVP Q2MIN PRN PRN Reason: Opioid Reversal Stop: 01/22/18 04:04 Nitroglycerin (Nitroglycerin) 0.4 mg SL Q5MIN PRN PRN Reason: Chest Pain Stop: 01/22/18 04:04 Omeprazole (Prilosec) 20 mg PO DAILY@0630 [facility] PRN Reason: Protocol Stop: 01/23/18 06:31 Last Admin: 07/24/17 05:21 Dose: 20 mg Ondansetron HCl (Zofran) 4 mg IVP Q8HR PRN PRN Reason: Nausea And Vomiting Stop: 01/22/18 04:04 Potassium Chloride (Potassium Chloride) 20 meq PO DAILY [facility] Stop: 01/22/18 09:01 Last Admin: 07/24/17 09:00 Dose: 20 meq Primidone (Mysoline) 50 mg PO Q8HR [facility]Y Stop: 01/22/18 08:01 Last Admin: 07/24/17 09:00 Dose: 50 mg Tamsulosin HCl (Flomax) 0.4 mg PO HS PRANAY PRN Reason: Protocol Stop: 01/22/18 21:01 Last Admin: 07/23/17 23:04 Dose: 0.4 mg - Imaging and Cardiology Echo: report reviewed Other Results: 12 hour tele: avg HR=64 SR. No significant event noted. - EKG Interpretation EKG results cardiology: personally reviewed Consult Discharge Plan - Plan [facility]errals: [facility] [Primary Care Provider] -
--- NOTE | 2017-07-24 12:02 | Discharge Summary ---
Date of Encounter: 07/24/17 Time of Encounter: 10:00 - Discharge Diagnosis (1) NSTEMI (non-ST elevated myocardial infarction) Priority: Primary Status: Acute (2) DVT prophylaxis Priority: Secondary Status: Acute (3) Diabetes mellitus Priority: Secondary Status: Acute Qualifiers: Diabetes mellitus type: type 2 Diabetes mellitus complication status: with unspecified complications Diabetes mellitus mcc insulin use: without termite control service representative use Qualified Code(s): E11.8 - Type 2 diabetes mellitus with unspecified complications (4) HTN (hypertension) Priority: Secondary Status: Chronic Qualifiers: Hypertension type: essential hypertension Qualified Code(s): I10 - Essential (primary) hypertension (5) Benign essential tremor Priority: Secondary Status: Acute - Discharge Medications Prescriptions: Clopidogrel [Plavix] 75 mg PO DAILY #30 tab Home Medications: Acetaminophen [Tylenol] 650 mg PO Q6HR PRN 07/22/17 [History] Aspirin Enteric Coated [Aspirin EC] 81 mg PO DAILY 07/22/17 [History] Atorvastatin Calcium [Lipitor] 80 mg PO HS 07/22/17 [History] Indapamide [Lozol] 2.5 mg PO DAILY 07/22/17 [History] Lactose-Reduced Food [Ensure Plus] 1 bottle PO DAILY 07/22/17 [History] Meclizine HCl [Verticalm] 25 mg PO TID PRN 07/22/17 [History] Multivitamin [Multi-Day Vitamins] 1 each PO DAILY 07/22/17 [History] Potassium Chloride [K-Tab ER] 20 meq PO DAILY 07/22/17 [History] Primidone [Mysoline] 50 mg PO Q8HR 07/22/17 [History] Propranolol HCl 40 mg PO BID 07/22/17 [History] Tamsulosin [Flomax] 0.4 mg PO HS 07/22/17 [History] clonazePAM [Klonopin] 0.5 mg PO HS 07/22/17 [History] hydrOXYzine pamoate [HydrOXYzine Pamoate] 25 mg PO DAILY PRN 07/22/17 [History] Clopidogrel [Plavix] 75 mg PO DAILY #30 tab 07/24/17 [Rx] Allergies/Adverse Reactions: 3 Allergy/AdvReac Type Severity Reaction Status Date / Time gabapentin AdvReac See Verified 07/22/17 19:07 Comments Date of admission: 07/23/17 05:23 Primary care physician: PCP [place] Discharging clinician: Senthil Goddard Anticipated date of discharge: 07/24/17 - Patient Status Disposition: Home, Self-Care Condition: Good Functional capacity at discharge: independent ambulation Overall status at discharge: patient is back to baseline - Discharge Instructions Follow Up With: [facility] [Primary Care Provider] - - Diet and Activity Activity: increase activity as tolerated Diet: diabetic diet, low salt diet Interval History: HPI: Mr. Lopez is a 86 year old male with prior medical history of CAD, diabetes, and GERD who presents to [facility] from the [facility] due to chest pain and elevated troponins. He states he had chest pain beginning Wednesday while at rest there was substernal in nature. He describes it as a throbbing and radiating into his jaw. He said it was severe and would be made worse by walking or exerting himself. He states it was somewhat episodic in that first episode on Wednesday was the worst lasting 45 minutes. It did bother him again Wednesday at roughly 1 AM and woke him from sleep and again later in the day. These episodes did not last long and were not as severe. He denies having diaphoresis, chills, shortness of breath, or nausea. He reports having a slight headache but not that significant. He was brought to [place]. At the [place] his troponins were trending upward starting at 0.04 and then 0.[address] segment changes on EKG. He was transferred to [place] where his next troponins found to be 0.10 and repeat EKGs showed some T-wave and ST segment changes. Interventional radiology was consulted and reviewed the chest x-rays but did not feel that he needs to be seen last night. He was started on heparin drip and reports he is now chest pain-free. Hospital course: Mr. Lopez is a 86 year old male admitted as NSTEMI. Patient was placed on heparin drip. Cardiology consult was called and saw patient. After discussed with patient, cardiology recommended medical treatment for NSTEMI. Heparin drip was continued for over 24 hours. Patient was placed on Plavix. Cardiology started the metoprolol for patient, however patient did take propranolol at home (patient has essential tremor), will continue propranolol upon discharge. Patient is pain-free during hospitalization. I saw and examined patient today. Patient is awake alert oriented 3. Vitals are stable. No chest pain or shortness of breath. Patient is stable to discharge home. Follow-up with cardiology as outpatient. - Time Spent with Patient Total time spent providing and/or coordinating discharge services: 25 minutes Less than 30 minutes - Constitutional Vitals: Temp Pulse Resp BP Pulse Ox 97.9 F 66 18 120/66 96 07/24/17 03:00 07/24/17 08:48 07/24/17 08:48 07/24/17 08:48 07/24/17 09:00 General appearance: Present: A&O X 3, no acute distress, answers questions appropriately
[2017-07-24] MEDS ORDERED: *HR* Heparin 5,000 UNIT/ML VIAL SQ SCH (18:00)
--- NOTE | 2017-07-26 20:56 | Electrocardiograph Report ---
[place] [address] Test Date: 2017-07-22 Pat Name: Philip Lopez Department: 104 Room: 2NE28 Gender: M Senior Benefits Manager: JANETH : 1930 Requested By: Chevy Bowen Order Number: [id number] Reading MD: Bernardino Rosa MD Measurements Intervals [place] Rate: 68 P: 48 OK: 174 QRS: -35 QRSD: 114 T: 87 QT: 397 QTc: 414 Interpretive Statements SINUS RHYTHM WITH OCCASIONAL SUPRAVENTRICULAR PREMATURE COMPLEXES MARKED LEFT AXIS DEVIATION Poor R wave progression Electronically Signed On 07-26-2017 20:54:42 EDT by Bernardino Rosa MD
== END 2017-07-24 13:00 | disposition home or self-care (01) | DRG 282 ==
LOC: EMEROO 18:23 → 2NENU 18:23
PROVIDERS: ADMIT Family Medicine; ATTEND Internal Medicine

== ENCOUNTER 2017-07-24 19:32 | Inpatient (IN) ==
[2017-07-24] MEDS ORDERED: Aspirin 81 MG TAB.CHEW PO ONE (19:59)
[2017-07-24] MEDS ORDERED: Nitroglycerin 0.4 MG TAB.SUBL SL PRN (20:10)
--- NOTE | 2017-07-24 20:15 | Emergency Department Note ---
Disposition Clinical Impression: Unstable angina, Shortness of breath Chest pain Qualifiers: Chest pain type: chest pain due to myocardial ischemia Ischemic chest pain type : unstable angina pectoris Qualified Code(s): I20.0 - Unstable angina Disposition: Admitted As Inpatient Condition: Serious [facility] Provider[facility] - Forms: ED Satisfaction Letter Time of Disposition: 22:17 Chest Pain HPI - General Chief Complaint: ED Chest Pain Stated Complaint: Chest pain Time Seen by Provider: 07/24/17 19:46 Source: EMS Limitations: no limitations Vital Signs Reviewed: Yes Nursing Notes Reviewed: Yes - History of Present Illness HPI Narrative: Patient is a 86-year-old male presents with chest pain and recent history of HI times this past week. He was admitted to the hospital and discharged earlier today at noon. Patient states that at 1500 hrs. he had a 10 minute bout of chest pain which went away on its own. Patient states his pain came back several hours later worse with exertion and taking deep inspiration that is his anginal equivalent sharp substernal pain radiation up to his jaw. Patient states his pain is 8/10 and constant. Patient states he has not been able to get his medications filled since [facility]. Severity scale (1-10): 6 - Related Data Home Medications Medication Instructions Recorded Confirmed Acetaminophen [Tylenol] 650 mg PO Q6HR PRN 07/22/17 07/22/17 Aspirin Enteric Coated [Aspirin EC] 81 mg PO DAILY 07/22/17 07/22/17 Atorvastatin Calcium [Lipitor] 80 mg PO HS 07/22/17 07/22/17 Indapamide [Lozol] 2.5 mg PO DAILY 07/22/17 07/22/17 Lactose-Reduced Food [Ensure Plus] 1 bottle PO DAILY 07/22/17 07/22/17 Meclizine HCl [Verticalm] 25 mg PO TID PRN 07/22/17 07/22/17 Multivitamin [Multi-Day Vitamins] 1 each PO DAILY 07/22/17 07/22/17 Potassium Chloride [K-Tab ER] 20 meq PO DAILY 07/22/17 07/22/17 Primidone [Mysoline] 50 mg PO Q8HR 07/22/17 07/22/17 Propranolol HCl 40 mg PO BID 07/22/17 07/22/17 Tamsulosin [Flomax] 0.4 mg PO HS 07/22/17 07/22/17 clonazePAM [Klonopin] 0.5 mg PO HS 07/22/17 07/22/17 hydrOXYzine pamoate [HydrOXYzine 25 mg PO DAILY PRN 07/22/17 07/22/17 Pamoate] Previous Rx's Medication Instructions Recorded Clopidogrel [Plavix] 75 mg PO DAILY #30 tab 07/24/17 Nitroglycerin 0.4 mg SL Q5-10MIN PRN #30 tab.subl 07/24/17 Allergies Allergy/AdvReac Type Severity Reaction Status Date / Time gabapentin AdvReac See Verified 07/22/17 19:07 Comments All systems ED: reviewed and negative except as stated. Review of Systems: As Per HPI Constitutional: Reports: weakness. Denies: fever, chills ENT ED: Denies: congestion Cardiovascular: Reports: chest pain, dyspnea on exertion. Denies: palpitations Respiratory: Denies: cough, dyspnea, wheezes, hemoptysis Gastrointestinal: Denies: abdominal pain, nausea, vomiting Genitourinary: Denies: urgency, dysuria, frequency, hematuria Musculoskeletal: Denies: back pain, neck pain Integumentary: Denies: rash Neurological: Denies: headache Psychiatric: Reports: anxiety Endocrine: Reports: fatigue Hematological/Lymphatic: Reports: easy bleeding Chest Pain PMH - Past Medical History Medical history: Reports: hyperlipidemia, hypertension, other Surgical history: Reports: herniorrhaphy (bilateral inguinal) Psychiatric history: Reports: no psych history - Social History Smoking Status: Former smoker Alcohol use: Reports: none Drug use: Reports: none Physical Exam Patient is 86-year-old male alert and oriented 3 and looks very uncomfortable secondary to chest pain and is short of breath. As O2 sat 99 on room air. Patient is currently tachycardic and hypertensive. - General Limitations: no limitations General appearance: alert, in no apparent distress - Head Head exam: atraumatic, normocephalic, normal inspection - Eye Eye exam: Present: normal appearance, PERRL, EOMI - ENT ENT exam: normal exam, normal oropharynx, mucous membranes dry - Neck Neck exam: Present: normal inspection, full ROM, trachea midline - Chest Chest inspection: Present: normal inspection, symmetric chest wall rise - Respiratory Respiratory exam: Present: normal lung sounds bilaterally. Absent: respiratory distress, wheezes - Cardiovascular Cardiovascular exam: Present: normal rhythm, tachycardia - Abdominal Exam Abdominal exam: Present: soft, Non-Tender. Absent: tenderness, distention, guarding, rebound, rigidity - Extremities Exam Extremities exam: Present: normal inspection, full ROM, normal capillary refill , other (Pulses equal bilaterally upper and lower extremities). Absent: tenderness, pedal edema - Back Exam Back exam: Present: normal inspection, full ROM. Absent: tenderness, CVA tenderness (R), CVA tenderness (L) - Neurological Exam Neurological exam: Present: alert, oriented X3 - Skin Skin exam: Present: warm, dry, intact, normal color Course - Reevaluation(s) Reevaluation #1: labs ordered for ACS workup Time: 20:11 - Consultations Consultation #1: Dr. Liu has accepted the patient for admission at 2105 hrs Time: 21:05 Vital Signs Temperature 98.2 F 07/24/17 19:41 Pulse Rate 105 07/24/17 19:41 Respiratory Rate 18 07/24/17 19:41 Blood Pressure 163/96 07/24/17 19:41 O2 Sat by Pulse Oximetry 98 07/24/17 19:41 Temperature 98.2 F 07/24/17 19:41 Pulse Rate 105 07/24/17 19:41 Respiratory Rate 18 07/24/17 19:41 Blood Pressure 163/96 07/24/17 19:41 O2 Sat by Pulse Oximetry 98 07/24/17 19:41 Oxygen Delivery Oxygen Delivery Nasal Cannula Chest Pain - [facility] Narrative Medical decision making narrative: Patient presents with unstable angina, extensive cardiac history. Multiple risk factors. Heart score 8. He was recently discharged for HI just this past week. Catheterization was not done secondary to patient's age and patient was currently not having any pain on review of patient's records. Patient is unable to get his prescriptions filled and started having chest pain at 1500 hrs. today. First bout last 10 minutes. Second bout happen later by several hours and was continuous to presentation at exam. Pain 8/10 sharp no radiation for which she states is his anginal equivalent. Patient was started on nitroglycerin 3. Patient's pain levels brought down to 0. Consulted cardiology who states that he patient pain-free. If he cannot keep patient pain -free and then contact handkerchief presser. He stated admit patient to hospital. Start patient on heparin and Plavix. Patient exhibits decision for admission. Dr. Liu has accepted the patient for admission at 2105 hrs - Lab Data Lab results reviewed: Yes I reviewed the patient's lab results. Lab results narrative: Short CBC 07/24/17 Range/Units 20:14 WBC 7.7 D (4.3-11.1) K/mcL Hgb 12.3 L D (12.9-16.9) g/dL Hct 35.3 L (37.5-50.1) % Plt Count 157 (140-400) K/mcL Neutrophils # 6.2 (1.6-8.9) K/mcL BMP 07/24/17 Range/Units 20:14 Sodium 134 L (136-145) mEq/L Potassium 4.5 (3.5-4.5) mEq/L Chloride 97 L (98-109) mEq/L Carbon Dioxide 26 (19-29) mEq/L BUN 20 (8-26) mg/dL Creatinine 0.92 (0.72-1.25) mg/dL Glucose 179 H (70-99) mg/dL Calcium 10.0 (8.6-10.8) mg/dL Cardiac Enzymes 07/24/17 Range/Units 20:14 Troponin I 0.14 H* (0-0.03) ng/mL Result diagrams: 07/24/17 20:14 07/24/17 20:14 Lab Results 07/24/17 07/24/17 07/24/17 Range/Units 20:14 20:14 20:14 WBC 7.7 D (4.3-11.1) K/mcL RBC 3.53 L (4.19-5.50) M/mcL Hgb 12.3 L D (12.9-16.9) g/dL Hct 35.3 L (37.5-50.1) % MCV 100.0 (83.0-100.0) fL MCH 34.8 H (28.0-33.3) pg MCHC 34.8 (31.6-35.5) g/dL RDW 13.3 (11.5-14.5) % Plt Count 157 (140-400) K/mcL MPV 9.3 L (9.4-12.4) fL Immature Gran % 0.3 (0-4) % Seg Neutrophils % 80.9 % Lymphocytes % 8.2 % Monocytes % 9.8 % Eosinophils % 0.5 % Basophils % 0.3 % Neutrophils # 6.2 (1.6-8.9) K/mcL Lymphocytes # 0.6 (0.6-4.6) K/mcL Monocytes # 0.8 (0.0-1.3) K/mcL Eosinophils # 0.0 (0.0-0.6) K/mcL Basophils # 0.0 (0.0-0.2) K/mcL PT 12.2 H (9.4-12.1) Seconds INR 1.1 APTT 29.6 D (26.0-36.0) Seconds Sodium (136-145) mEq/L Potassium (3.5-4.5) mEq/L Chloride (98-109) mEq/L Carbon Dioxide (19-29) mEq/L BUN (8-26) mg/dL Creatinine (0.72-1.25) mg/dL Est GFR ( Amer) (> 60) Est GFR (Non-Af Amer) (> 60) BUN/Creatinine Ratio (6-26) Glucose (70-99) mg/dL Calculated Osmolality (280-300) Calcium (8.6-10.8) mg/dL Troponin I (0-0.03) ng/mL B-Natriuretic Peptide 176 H (0-100) pg/mL 07/24/17 07/24/17 Range/Units 20:14 20:14 WBC (4.3-11.1) K/mcL RBC (4.19-5.50) M/mcL Hgb (12.9-16.9) g/dL Hct (37.5-50.1) % MCV (83.0-100.0) fL MCH (28.0-33.3) pg MCHC (31.6-35.5) g/dL RDW (11.5-14.5) % Plt Count (140-400) K/mcL MPV (9.4-12.4) fL Immature Gran % (0-4) % Seg Neutrophils % % Lymphocytes % % Monocytes % % Eosinophils % % Basophils % % Neutrophils # (1.6-8.9) K/mcL Lymphocytes # (0.6-4.6) K/mcL Monocytes # (0.0-1.3) K/mcL Eosinophils # (0.0-0.6) K/mcL Basophils # (0.0-0.2) K/mcL PT (9.4-12.1) Seconds INR APTT (26.0-36.0) Seconds Sodium 134 L (136-145) mEq/L Potassium 4.5 (3.5-4.5) mEq/L Chloride 97 L (98-109) mEq/L Carbon Dioxide 26 (19-29) mEq/L BUN 20 (8-26) mg/dL Creatinine 0.92 (0.72-1.25) mg/dL Est GFR ( Amer) > 60 (> 60) Est GFR (Non-Af Amer) > 60 (> 60) BUN/Creatinine Ratio 22 (6-26) Glucose 179 H (70-99) mg/dL Calculated Osmolality 285 (280-300) Calcium 10.0 (8.6-10.8) mg/dL Troponin I 0.14 H* (0-0.03) ng/mL B-Natriuretic Peptide (0-100) pg/mL - Radiology Data Radiology results reviewed: Yes I reviewed the patient's radiology results. Chest X-Ray 07/24/17 19:51 IMPRESSION: No acute abnormality. D/ / Guero Posada MD / Guero Posada MD Interpreting Provider: Guero Posada MD - EKG Data EKG attestation: Yes I reviewed and interpreted this EKG. EKG results narrative: EKG taken 07/24/2017 at 1940 hrs. as sinus tachycardia with occasional PVCs. Patient has ST depressions in V4 V5 and V6. These EKG for comparison taken shows mildly depression in V5 of ST segment. EKG taken today looks worse Heart Score - Score History: Highly Suspicious EKG: Non Specific repolarisation Disturbance Age: Greater than 65 Risk Factors: Equal/Greater than 3 risk factor or history of atherosclerotic disease Troponin: 1-3x normal limit HEART Score Total: 8 Critical Care Time Critical Care Time: Yes Total Critical Care Time: 35 Attestation: Rectal care time 35 minutes. Attestation Statement - Attestation Attestation: Patient was seen with resident physician. I reviewed the history, physical, assessment and plan, and agree with the findings. I also personally evaluated this patient and had [id number] time with this patient. 86-year-old male presents to the emergency department about 8 hours after being discharged from the hospitalist chief complaint chest pain. Patient states that he had been worked up for chest pain while in the hospital, they are hesitant to do a catheterization because of his age and wanted to try medical therapy first. However shortly after leaving the hospital he developed chest pain. He was unable to [facility]. He said the first episode was not as scary but he had a second episode sometime thereafter with chest pressure similar to his previous HI pain that he said just would not go away currently is an 8 out of 10 on arrival to the emergency department. Denies other symptoms at this time. ED course vital signs mildly tachycardic blood pressure stable. ENT is unremarkable. Heart normal. Lungs normal. Abdomen soft and nontender. Extremities unremarkable. Neurologically intact. ED course patient was given 3 nitroglycerin which resolved his pain. He is then given Lopressor to help with his heart rate. He did have some ST segment depression on initial EKG some of which could be seen on prior EKG. His initial troponin was higher than it had been in the hospital. Cardiology was notified. Their suggestion was that if his pain was not resolving with nitroglycerin to contact interventional cardiology. However his pain did resolve with nitroglycerin. We contact the hospitalist service to arrange for admission. We started the patient on heparin. Hemodynamically he remains stable and his pain was markedly improved. He was taken to the floor. Agree with resident physician assessment and plan. Critical care time was 35 minutes.
[2017-07-24] MEDS ORDERED: 0.9 % Sodium Chloride 1,000 ML IVC ONE (20:17)
[2017-07-24 20:20] LABS: Basophils % 0.3 %; Eosinophils % 0.5 %; Hematocrit 35.3 % (37.5-50.1); Immature Granulocytes % 0.3 % (0-4); Lymphocytes # 0.6 K/mcL (0.6-4.6); Lymphocytes % 8.2 %; Mean Corpuscular HGB Conc 34.8 g/dL (31.6-35.5); Mean Corpuscular Hemoglobin 34.8 pg (28.0-33.3); Mean Platelet Volume 9.3 fL (9.4-12.4); Monocytes # 0.8 K/mcL (0.0-1.3); Monocytes % 9.8 %; Platelet Count 157 K/mcL (140-400); Red Blood Count 3.53 M/mcL (4.19-5.50); Red Cell Distribution Width 13.3 % (11.5-14.5); Segmented Neutrophils % 80.9 %
[2017-07-24 20:21] LABS: Hemoglobin 12.3 g/dL (12.9-16.9); Neutrophils # 6.2 K/mcL (1.6-8.9)
[2017-07-24 20:25] LABS: INR 1.1; Prothrombin Time 12.2 Seconds (9.4-12.1)
[2017-07-24 20:28] LABS: Activated Partial Thrombo Time 29.6 Seconds (26.0-36.0)
[2017-07-24 20:34] LABS: BUN/Creatinine Ratio 22 (6-26); Blood Urea Nitrogen 20 mg/dL (8-26); Carbon Dioxide 26 mEq/L (19-29); Chloride 97 mEq/L (98-109); Glucose 179 mg/dL (70-99); Osmolality,Calculated 285 (280-300); Potassium 4.5 mEq/L (3.5-4.5); Sodium 134 mEq/L (136-145); eGFR For African Americans > 60 (> 60); eGFR For Non-African Americans > 60 (> 60)
[2017-07-24] MEDS ORDERED: *HR* Metoprolol 5 MG/5 ML VIAL IVP SCH (20:45)
[2017-07-24] MEDS ORDERED: *HR* Heparin 5,000 UNIT/ML VIAL IVP ONE (22:12)
[2017-07-24] MEDS ORDERED: Acetaminophen 325 MG TABLET PO PRN (22:21)
[2017-07-24] MEDS ORDERED: Naloxone 0.4 MG/ML INJ IVP PRN (22:21)
--- NOTE | 2017-07-24 22:48 | Internal Med History&Physical ---
<Vielka Florian - Last Filed: 07/24/17 23:18> Date of Encounter: 07/24/17 Time of Encounter: 22:41 Assessment and Plan (1) NSTEMI (non-ST elevated myocardial infarction) Current visit: Yes Status: Acute 1 patient was discharged from this facility around 12 noon today after treated for STEMI. He was seen by cardiology-no cardiac intervention- medical management-however patient did not fill his prescriptions after discharge [facility] to [facility]. He had chest pain upon exertion which was relieved with nitroglycerin. Troponin was elevated at 0.14 we will continue to trend troponins 2 continuous cardiac monitoring 3 cardiology has been consulted-if he develops pain consult interventional cardiology 4 heparin drip 5 continue with beta campos 6 continue with statin 7 oxygen as needed 8 nitroglycerin as needed-if pain develops initiated on drip (2) Diabetes mellitus Current visit: No Status: Acute Accu-Cheks before meals at bedtime + sliding scale insulin Qualifiers: Diabetes mellitus type: type 2 Diabetes mellitus complication status: with unspecified complications Diabetes mellitus skilled nursing insulin use: without superintendent [employer] use Qualified Code(s): E11.8 - Type 2 diabetes mellitus with unspecified complications (3) HTN (hypertension) Current visit: No Status: Chronic Continue with home medication continue beta campos Qualifiers: Hypertension type: essential hypertension Qualified Code(s): I10 - Essential (primary) hypertension (4) Benign essential tremor Current visit: No Status: Acute 1 continue with mysolin (5) DVT prophylaxis Current visit: Yes Status: Acute Heparin drip Internal Medicine - H&P: HPI History of present illness: Mr. Lopez is a 86 year old male past history of coronary disease diabetes recent history of NSTEMI this week. He was admitted to the hospital and discharged earlier today at approximately noon. During his admission he was seen by cardiology he did have a NSTEMI according to records catheterization was not completed secondary to patient's age the patient was currently pain- free. Apparently After discharge he was not able to get his medications [facility]. At approximately 1500 he began to experience sharp midsternal nonradiating chest pain that lasted approximately 10 minutes and relieved on its own. The pain was triggered while he was ambulating. Several hours later he a blade to the bathroom he had midsternal sharp pain that radiated to his jaw 8 out of 10 and was constant there were no relieving factors he became diaphoretic. He called EMS and was transported to the ER for evaluation. According to ER records were today revealed elevated troponin 0.14 which was elevated from previous troponin EKG with no changes from previous old left bundle branch block. He was given nitroglycerin 3 which did relieve his pain. As well as Toprol 5 mg IVP and was initiated on heparin drip. Cardiology was consulted who advised presently patient pain-free however if pain returns to consult scalehouse attendant. He has been admitted for further workup and evaluation. Presently patient is pain-free he denies any shortness of breath. His lung sounds are clear heart sounds are regular S1 and S2 with no rubs clicks, murmurs noted abdomen soft nontender no pedal edema. We did discuss CODE STATUS at this time he would like to discuss it with his family. I reviewed this case with Dr. Baldwin who agrees with plan. Past Med Surg Social Fam HX - Past Medical History Medical history: hyperlipidemia, hypertension, other Psychiatric history: no psych history - Past Surgical History Surgical History: herniorrhaphy (bilateral inguinal) - Social History Smoking Status: Former smoker Smokeless Tobacco Status: No Alcohol use: none Drug use: none - Family History Brother Hx Family Cardiac Disorders: Yes ("heart problems" ) Hx Family Neurologic Disorders: Yes (CVA) Internal Medicine - H&P: Meds Acetaminophen [Tylenol] 650 mg PO Q6HR PRN 07/22/17 [History] Aspirin Enteric Coated [Aspirin EC] 81 mg PO DAILY 07/22/17 [History] Atorvastatin Calcium [Lipitor] 80 mg PO HS 07/22/17 [History] Indapamide [Lozol] 2.5 mg PO DAILY 07/22/17 [History] Lactose-Reduced Food [Ensure Plus] 1 bottle PO DAILY 07/22/17 [History] Meclizine HCl [Verticalm] 25 mg PO TID PRN 07/22/17 [History] Multivitamin [Multi-Day Vitamins] 1 each PO DAILY 07/22/17 [History] Potassium Chloride [K-Tab ER] 20 meq PO DAILY 07/22/17 [History] Primidone [Mysoline] 50 mg PO Q8HR 07/22/17 [History] Propranolol HCl 40 mg PO BID 07/22/17 [History] Tamsulosin [Flomax] 0.4 mg PO HS 07/22/17 [History] clonazePAM [Klonopin] 0.5 mg PO HS 07/22/17 [History] hydrOXYzine pamoate [HydrOXYzine Pamoate] 25 mg PO DAILY PRN 07/22/17 [History] Clopidogrel [Plavix] 75 mg PO DAILY #30 tab 07/24/17 [Rx] Nitroglycerin 0.4 mg SL Q5-10MIN PRN #30 tab.subl 07/24/17 [Rx] 3 Allergy/AdvReac Type Severity Reaction Status Date / Time gabapentin AdvReac See Verified 07/22/17 19:07 Comments All Systems PM: A 10-system review of systems was performed and is negative for pertinent findings except as documented above in the HPI. - Constitutional Constitutional: no chills, no fever(s), no night sweats - EENT Eyes: no change in vision, no discharge, no pain, no photophobia Nose, mouth and throat: no dysphagia, no nasal discharge, no neck pain, no sore throat - Cardiovascular Cardiovascular ROS IM: chest pain, diaphoresis - Respiratory Respiratory: no cough, no dyspnea, no wheezing, no excessive phlegm production - Gastrointestinal Gastrointestinal: no abdominal pain, no diarrhea, no hematemesis, no hematochezia, no melena, no nausea, no vomiting - Musculoskeletal Musculoskeletal ROS IM: no numbness, no tingling - Integumentary Integumentary IM: no rash, no unusual bruising - Neurological Neurological ROS: no confusion, no convulsions, no focal weakness, no numbness, no tingling, no tremor(s) - Hematologic/Lymphatic Hematologic/Lymphatic: no easy bruising - Constitutional Vitals: Temp Pulse Resp BP Pulse Ox 98.2 F 105 18 150/86 98 07/24/17 19:41 07/24/17 19:41 07/24/17 22:25 07/24/17 22:25 07/24/17 19:41 General appearance: Present: A&O X 3, answers questions appropriately - Head Head exam: Present: atraumatic, normocephalic - Eye Eye exam: Present: PERRL, conjuntiva pink, sclera anicteric Pupils: Present: PERRL - Neck Neck exam general surgery: Present: supple, trachea midline. Absent: lymphadenopathy - Respiratory Respiratory exam: Present: CTAB. Absent: accessory muscle use, rales, rhonchi, wheezes - Cardiovascular Cardiovascular exam: Present: RRR, +S1, +S2. Absent: diastolic murmur, gallop, rubs, systolic murmur - GI/Abdominal GI/Abdominal exam: Present: normal bowel sounds, soft, no peritoneal signs. Absent: distended, tenderness - Extremities Exam Extremities exam: Present: warm, radial pulses palpable and symmetrical. Absent : calf tenderness, cyanotic, pedal edema - Neurological Exam Neurological exam: Present: CN II-XII intact, oriented X3, no focal deficits. Absent: pronater drift, facial droop, speech deficit - Skin Skin exam: Present: dry, intact Internal Med - H&P Results - Labs CBC & Chem 7: 07/24/17 20:14 07/24/17 20:14 Labs: Short CBC 07/24/17 Range/Units 20:14 WBC 7.7 D (4.3-11.1) K/mcL Hgb 12.3 L D (12.9-16.9) g/dL Hct 35.3 L (37.5-50.1) % Plt Count 157 (140-400) K/mcL Neutrophils # 6.2 (1.6-8.9) K/mcL BMP 07/24/17 20:14 Sodium 134 L Potassium 4.5 Chloride 97 L Carbon Dioxide 26 BUN 20 Creatinine 0.92 Glucose 179 H Calcium 10.0 Cardiac Enzymes 07/24/17 Range/Units 20:14 Troponin I 0.14 H* (0-0.03) ng/mL - EKG Data EKG shows normal: sinus rhythm - EKG Data Prior EKG available for review: yes When compared to previous EKG: there is no significant change EKG comments: 07/24/17 22:59 SR with Old LBB Rviewed with Dr Baldwin - Impressions ITS Impressions Chest X-Ray 07/24/17 19:51 IMPRESSION: No acute abnormality. D/ / Guero Posada MD / Guero Posada MD Interpreting Provider: Guero Posada MD <Kb Baldwin - Last Filed: 07/25/17 02:05> Date of Encounter: 07/25/17 Time of Encounter: 00:50 - Cardiovascular Cardiovascular ROS IM: chest pain, claudication, diaphoresis, dyspnea, no lightheadedness, no syncope - Respiratory Respiratory: no cough, no hemoptysis - Constitutional Vitals: Temp Pulse Resp BP Pulse Ox 98.9 F 81 18 131/67 99 07/24/17 22:41 07/25/17 01:29 07/24/17 22:41 07/25/17 01:29 07/24/17 22:41 General appearance: Present: cooperative, A&O X 3, pleasant, no acute distress - Head Head exam: Present: normal inspection - Eye Eye exam: Present: PERRL. Absent: scleral icterus - ENT ENT exam: Present: mucous membranes moist, normal exam - Neck Neck exam general surgery: Present: supple - Expanded Neck Exam Neck exam: Absent: carotid bruit - Respiratory Respiratory exam: Present: CTAB. Absent: rales, rhonchi, wheezes - Cardiovascular Cardiovascular exam: Present: RRR, +S1, +S2. Absent: diastolic murmur, systolic murmur - GI/Abdominal GI/Abdominal exam: Present: soft. Absent: tenderness - Extremities Exam Extremities exam: Present: full ROM, warm. Absent: calf tenderness, joint swelling, pedal edema - Neurological Exam Neurological exam: Present: alert, CN II-XII intact, oriented X3, no focal deficits - Skin Skin exam: Present: dry, warm. Absent: rash Internal Med - H&P Results - Labs CBC & Chem 7: 07/24/17 20:14 07/24/17 20:14 - EKG Data -: EKG Interpreted by Myself EKG shows normal: sinus rhythm - EKG Data Prior EKG available for review: yes When compared to previous EKG: there is no significant change EKG comments: 07/25/17 01:40 NSR; old LBBB; no acute changes - Diagnostic Studies Chest x-ray Status: image reviewed by me (negative) - Attending Attestation I discussed the patient KALISPEL, PMH, ROS, lab data, and exam findings with Vielka Florian CNP. I then saw and examined patient independently as well. Currently , he is chest pain free and feels much better than upon presentation. He did not have a chance to try medical management. However, he did have recurrence of symptoms soon after discharge. Cardiology has been consulted and he will discuss with them again treatment recommendations. Despite his age, he has a good quality of life. As such, I would favor [facility]. However, I would defer to patient and cardiology recommendations. Other than my comments above and noted exam findings, I agree with Vielka's assessment and plan.
[2017-07-25] MEDS: Heparin 25,000 UNIT/500 ML D5W 25,000 UNIT/500 ML MLS IVC SCH ×2 (00:17→09:53)
[2017-07-25] MEDS: clonazePAM 0.5 MG TABLET PO SCH ×2 (00:17→19:48)
[2017-07-25] MEDS: Primidone 50 MG TABLET PO SCH ×4 (00:17→23:57)
[2017-07-25 03:36] LABS: Basophils % 0.6 %; Eosinophils # 0.1 K/mcL (0.0-0.6); Eosinophils % 1.6 %; Hematocrit 33.5 % (37.5-50.1); Hemoglobin 11.7 g/dL (12.9-16.9); Immature Granulocytes % 0.3 % (0-4); Lymphocytes # 1.5 K/mcL (0.6-4.6); Lymphocytes % 24.4 %; Mean Corpuscular HGB Conc 34.9 g/dL (31.6-35.5); Mean Corpuscular Hemoglobin 35.6 pg (28.0-33.3); Mean Corpuscular Volume 101.8 fL (83.0-100.0); Mean Platelet Volume 9.7 fL (9.4-12.4); Monocytes % 15.2 %; Neutrophils # 3.6 K/mcL (1.6-8.9); Platelet Count 150 K/mcL (140-400); Red Blood Count 3.29 M/mcL (4.19-5.50); Red Cell Distribution Width 13.7 % (11.5-14.5); Segmented Neutrophils % 57.9 %
[2017-07-25 03:52] LABS: BUN/Creatinine Ratio 20 (6-26); Blood Urea Nitrogen 16 mg/dL (8-26); Calcium 9.5 mg/dL (8.6-10.8); Carbon Dioxide 26 mEq/L (19-29); Chloride 100 mEq/L (98-109); Glucose 129 mg/dL (70-99); Osmolality,Calculated 283 (280-300); Potassium 3.9 mEq/L (3.5-4.5); Sodium 135 mEq/L (136-145); eGFR For African Americans > 60 (> 60); eGFR For Non-African Americans > 60 (> 60)
--- NOTE | 2017-07-25 04:37 | Event Note ---
Date of Encounter: 07/25/17 Time of Encounter: 04:34 Called by RN stating troponin is now 28; retest it is 27. EKG remains same --> LBBB. I assessed patient and he is chest pain free. I contacted interventional cardiology and spoke with Dr. Lomax. Given that patient is CP free, he does not feel emergency LHC is necessary, but he would like to proceed later this morning with LHC. He agrees with current treatment, but he and I agree to start NTG drip. I ordered NTG drip right now, and I will keep him npo for LHC later this morning.
[2017-07-25] MEDS ORDERED: Nitroglycerin 25 MG/250 ML INFUS..BTL IVC SCH (04:45)
--- NOTE | 2017-07-25 08:37 | Cardiology Consult Note ---
Date of Encounter: 07/25/17 Time of Encounter: 07:30 Assessment and Plan (1) NSTEMI (non-ST elevated myocardial infarction) Current Visit: Yes Status: Acute Presents with typical chest pain symptoms, troponin 32.97. Ischemic ECG changes. Recent discharge for medically treated small NSTEMI (troponin 0.1). EF preserved, 55% with normal wall motion. Reports midsternal chest discomfort 3/10--increase NTG to keep pain free. Continue heparin gtt, asa, statin, plavix, and betablocker. Recommend [facility] with possible PCI; he is aware of increased risk for CVA, [place], bleeding due to increased age. Will further discuss and review with Dr. Crow Lester. Cardiac rehab consulted. Further recommendations to follow. (2) HTN (hypertension) Current Visit: Yes Status: Chronic Continue betablocker. On NTG gtt, remains elevated. Will re-evaluate after AM medications have been administered. Qualifiers: Hypertension type: essential hypertension Qualified Code(s): I10 - Essential (primary) hypertension Discussion w patient/family: The assessment and plan as outlined above was discussed with the patient and/or family members who expressed understanding and agreement. All questions were answered. Thank you for involving us in the care of your patient. Please call with any questions. The patient will be discussed and reviewed with Dr. Crow Lester; changes to be made accordingly. History of Present Illness Consult date: 07/25/17 Requesting physician: Kb Baldwin Consult reason: Chest pain; NSTEMI Chief complaint: Chest pain History of present illness: Mr. Lopez is a 86 year old male with PMHx significant for HTN, HLD and tremors who presented to the ED with recurrent chest pain. He was discharged from [facility] on 07/24/17 (small NSTEMI, peak trop 0.11); he reports chest discomfort recurred around 3PM yesterday afternoon. Pain described as midsternal pressure/heaviness with radiation to neck and jaw. Pain continued to worsen throughout the evening which prompted ED evaluation. Given advanced age, preserved EF, and controlled symptoms patient had elected to treat prior NSTEMI medically. Prior CV testing: [facility]--N[facility] stress test (non-exercise) in 2014, was negative for ischemia or infarct, gated EF=64%. TTE 07/23/17: LVEF 55%, mild concentric left ventricular hypertrophy, mild left ventricular diastolic dysfunction, atypical septal motion consistent with bundle branch block, normal right ventricular structure and function, no evidence of PFO with agitated saline contrast, mild MR, mild TR, moderate pulmonary hypertension, all wall segments showed normal motion. Past Med Surg Social Fam HX - Past Medical History Attestation: Yes The following information was validated with the patient. Source: patient Medical history: hyperlipidemia, hypertension, myocardial infarction, other ( tremors) Psychiatric history: no psych history - Past Surgical History Surgical History: herniorrhaphy (bilateral inguinal) - Social History Smoking Status: Former smoker Smokeless Tobacco Status: No Alcohol use: none Drug use: none - Family History Brother Hx Family Cardiac Disorders: Yes ("heart problems" ) Hx Family Neurologic Disorders: Yes (CVA) Medications and Allergies Acetaminophen [Tylenol] 650 mg PO Q6HR PRN 07/22/17 [History] Aspirin Enteric Coated [Aspirin EC] 81 mg PO DAILY 07/22/17 [History] Atorvastatin Calcium [Lipitor] 80 mg PO HS 07/22/17 [History] Indapamide [Lozol] 2.5 mg PO DAILY 07/22/17 [History] Lactose-Reduced Food [Ensure Plus] 1 bottle PO DAILY 07/22/17 [History] Meclizine HCl [Verticalm] 25 mg PO TID PRN 07/22/17 [History] Multivitamin [Multi-Day Vitamins] 1 each PO DAILY 07/22/17 [History] Potassium Chloride [K-Tab ER] 20 meq PO DAILY 07/22/17 [History] Primidone [Mysoline] 50 mg PO Q8HR 07/22/17 [History] Propranolol HCl 40 mg PO BID 07/22/17 [History] Tamsulosin [Flomax] 0.4 mg PO HS 07/22/17 [History] clonazePAM [Klonopin] 0.5 mg PO HS 07/22/17 [History] hydrOXYzine pamoate [HydrOXYzine Pamoate] 25 mg PO DAILY PRN 07/22/17 [History] Clopidogrel [Plavix] 75 mg PO DAILY #30 tab 07/24/17 [Rx] Nitroglycerin 0.4 mg SL Q5-10MIN PRN #30 tab.subl 07/24/17 [Rx] 3 Allergy/AdvReac Type Severity Reaction Status Date / Time gabapentin AdvReac See Verified 07/22/17 19:07 Comments All Systems Review: A 10-system review of systems was performed and is negative for pertinent findings except as documented above in the HPI. - Cardiovascular Cardiovascular: as per HPI Physical Examination Vital Signs, Last 4 Hours Temp Pulse Resp BP Pulse Ox 07/25/17 07:21 98.4 F 85 17 176/77 95 General: Conversant, No Apparent Distress HEENT: Atraumatic, Normocephaly, Mucus Membranes Moist Cardiac: Reg Rate and Rhythm, Normal S1 and S2 Lungs: Normal Breath Sounds, No Wheeze, Rales, Rhonchi Neuro: Alert and responsive, No focal deficits noted Abdomen: Soft, Non-Tender Skin: No rashes noted on visualized skin Musculoskeletal: No Chest Wall Tenderness Extremities: No Edema, Normal Pulses Results 07/25/17 03:15 07/25/17 03:15 Lab Results 07/25/17 07/25/17 07/25/17 03:15 03:15 04:45 WBC 6.3 Hgb 11.7 L Hct 33.5 L Plt Count 150 Sodium 135 L Potassium 3.9 Chloride 100 Carbon Dioxide 26 BUN 16 Creatinine 0.79 Glucose 129 H Calcium 9.5 Troponin I 32.97 H* Active Medications Acetaminophen (Tylenol) 650 mg PO Q6HR PRN PRN Reason: Mild Pain (1-3) Stop: 01/23/18 22:22 Aspirin (Aspirin Ec) 81 mg PO DAILY [facility] Stop: 01/24/18 09:01 Last Admin: 07/25/17 08:23 Dose: 81 mg Atorvastatin Calcium (Lipitor) 80 mg PO HS [facility] Stop: 01/23/18 23:16 Last Admin: 07/25/17 00:17 Dose: 80 mg Clonazepam (Klonopin) 0.5 mg PO HS [facility] Stop: 01/23/18 23:16 Last Admin: 07/25/17 00:17 Dose: 0.5 mg Clopidogrel Bisulfate (Plavix) 75 mg PO DAILY [facility] Stop: 01/24/18 09:01 Last Admin: 07/25/17 08:23 Dose: 75 mg Heparin Sodium/Dextrose (Heparin 25,000 Unit/500 Ml D5w) 25,000 unit in 500 mls @ 21.21 mls/hr IVC .[id number] PRANAY; 14 UNIT/KG/HR PRN Reason: Protocol Stop: 01/23/18 22:16 Last Admin: 07/25/17 00:17 Dose: 14 unit/kg/hr, 21.21 mls/hr Nitroglycerin (Nitroglycerin Premix 25 Mg/250 Ml) 25 mg in 250 mls @ 6 mls/hr IVC .Q24H PRANAY; 10 MCG/MIN PRN Reason: Protocol Stop: 01/24/18 04:46 Last Admin: 07/25/17 06:08 Dose: 10 mcg/min, 6 mls/hr Indapamide (Lozol) 2.5 mg PO DAILY PRANAY Stop: 01/24/18 09:01 Last Admin: 07/25/17 08:23 Dose: 2.5 mg Metoprolol Tartrate (Lopressor) 5 mg IVP Q5MIN PRANAY Stop: 07/26/17 20:46 Last Admin: 07/24/17 21:33 Dose: 5 mg Metoprolol Tartrate (Lopressor) 25 mg PO BID PRANAY Stop: 01/24/18 09:01 Last Admin: 07/25/17 08:23 Dose: 25 mg Naloxone HCl (Narcan) 0.4 mg IVP Q2MIN PRN PRN Reason: Opioid Reversal Stop: 01/23/18 22:22 Nitroglycerin (Nitroglycerin) 0.4 mg SL Q5MIN PRN PRN Reason: Chest Pain Stop: 01/23/18 20:11 Last Admin: 07/24/17 20:42 Dose: 0.4 mg Primidone (Mysoline) 50 mg PO Q8HR PRANAY Stop: 01/24/18 00:01 Last Admin: 07/25/17 08:23 Dose: 50 mg Tamsulosin HCl (Flomax) 0.4 mg PO HS PRANAY PRN Reason: Protocol Stop: 01/24/18 21:01 - Imaging and Cardiology Echo: report reviewed Other Results: 12 hour tele: avg HR=81 SR. 3 beat run NSVT noted. - EKG Interpretation EKG results cardiology: personally reviewed Consult Discharge Plan - Plan [facility]: [facility] [Primary Care Provider] -
[2017-07-25 08:57] LABS: Heparin anti-factor XA UFH 0.81 IU/mL (0.30-0.70)
[2017-07-25] MEDS ORDERED: Aspirin Enteric Coated 81 MG Tablet PO SCH (09:00)
[2017-07-25] MEDS ORDERED: *HR* Midazolam HCl 2 MG/2 ML VIAL ONE (09:52)
[2017-07-25] MEDS ORDERED: *HR* FentaNYL (PF) 100 MCG/2 ML VIAL ONE (09:52)
[2017-07-25] MEDS ORDERED: 0.9 % Sodium Chloride 1,000 ML ONE ×2 (09:52→18:12)
[2017-07-25] MEDS ORDERED: Heparin 1,000 UNITS/500 mL NS 500 ML ONE (09:52)
[2017-07-25] MEDS ORDERED: *HR* Heparin 10,000 UNIT/10 ML VIAL ONE (09:53)
[2017-07-25] MEDS ORDERED: Nitroglycerin 1,000 MCG/10 ML VIAL IV ONE (09:53)
--- NOTE | 2017-07-25 10:53 | Internal Med Progress Note ---
Date of Encounter: 07/25/17 Time of Encounter: 09:00 - Assessment and plan (1) NSTEMI (non-ST elevated myocardial infarction) Current Visit: Yes Status: Acute Assessment and plan: Patient has a recurrent chest pain and elevated troponin. Patient was recently discharged for small NSTEMI and was recommended for medical treatment. - Cardiology consult appreciated. Plan for [facility] - Continue heparin drip and NTG drip prior to LHC. Continue closely cardiac monitoring and vitals monitoring. - Continue aspirin, Plavix, beta campos, and Statin Patient is at high risk because he is on heparin drip and NTG drip, needed close monitoring (2) DVT prophylaxis Current Visit: Yes Status: Acute (3) Diabetes mellitus Current Visit: No Status: Acute Assessment and plan: Cover patient with a sliding scale Qualifiers: Diabetes mellitus type: type 2 Diabetes mellitus complication status: with unspecified complications Diabetes mellitus intermediate school teacher insulin use: without fdc use Qualified Code(s): E11.8 - Type 2 diabetes mellitus with unspecified complications (4) HTN (hypertension) Current Visit: Yes Status: Chronic Assessment and plan: Continue home medications. Monitor BP Qualifiers: Hypertension type: essential hypertension Qualified Code(s): I10 - Essential (primary) hypertension (5) Benign essential tremor Current Visit: No Status: Acute Assessment and plan: Continue home medications (6) DVT prophylaxis Current Visit: Yes Status: Acute Assessment and plan: Pt is on heparin drip now - Time Spent With Patient Greater than 35 minutes - Subjective Interval history: Patient is a 80-year-old male admitted for NSTEMI. Past medical history is significant for hypertension, diabetes, benign essential tremor, CAD with NSTEMI recently admitted and just was discharged 1 day ago. Patient was seen and examined. Patient is pain-free right now. Denies shortness of breath. On heparin drip and NTG drip. Vitals are stable. Cardiology saw patient and plan for [facility] today. - Constitutional Vitals: Temp Pulse Resp BP Pulse Ox 98.4 F 85 17 176/77 95 07/25/17 07:21 07/25/17 07:21 07/25/17 07:21 07/25/17 07:21 07/25/17 08:30 General appearance: Present: cooperative, A&O X 3, pleasant, no acute distress - Head Head exam: Present: atraumatic, normocephalic - Eye Eye exam: Present: PERRL, conjuntiva pink, sclera anicteric Pupils: Present: PERRL - Neck Neck exam general surgery: Present: supple, trachea midline. Absent: lymphadenopathy - Respiratory Respiratory exam: Present: CTAB. Absent: accessory muscle use, rales, rhonchi, wheezes - Cardiovascular Cardiovascular exam: Present: RRR, +S1, +S2. Absent: diastolic murmur, gallop, rubs, systolic murmur - GI/Abdominal GI/Abdominal exam: Present: normal bowel sounds, soft, no peritoneal signs. Absent: distended, tenderness - Extremities Exam Extremities exam: Present: warm, radial pulses palpable and symmetrical. Absent : calf tenderness, cyanotic, pedal edema - Neurological Exam Neurological exam: Present: CN II-XII intact, oriented X3, no focal deficits. Absent: pronater drift, facial droop, speech deficit - Skin Skin exam: Present: dry, intact Internal Medicine: Result - Labs CBC & Chem 7: 07/25/17 03:15 07/25/17 03:15 Labs: Short CBC 07/25/17 Range/Units 03:15 WBC 6.3 (4.3-11.1) K/mcL Hgb 11.7 L (12.9-16.9) g/dL Hct 33.5 L (37.5-50.1) % Plt Count 150 (140-400) K/mcL Neutrophils # 3.6 (1.6-8.9) K/mcL BMP 07/25/17 03:15 Sodium 135 L Potassium 3.9 Chloride 100 Carbon Dioxide 26 BUN 16 Creatinine 0.79 Glucose 129 H Calcium 9.5 Cardiac Enzymes 07/25/17 07/25/17 Range/Units 04:45 08:16 Troponin I 32.97 H* 43.15 H* (0-0.03) ng/mL - ABG Interpretation ABG results: PT/INR, D-dimer PT 12.2 Seconds (9.4-12.1) H 07/24/17 20:14 Consult Discharge Plan - Plan [facility]errals: [facility] [Primary Care Provider] -
--- NOTE | 2017-07-25 10:54 | Pre-Sedation Evaluation ---
Pre-sedation evaluation - Pre-sedation checklist Date of procedure: 07/25/17 Procedure: [facility] Recent Vitals: Last Vital Signs Temp 98.4 F 07/25/17 07:21 Pulse 85 07/25/17 07:21 Resp 17 07/25/17 07:21 BP 176/77 07/25/17 07:21 Pulse Ox 95 07/25/17 08:30 H&P (including ROS) documented in medical record: Yes Previous reaction to sedatives/anesthetics: No Dietary Status: NPO after Midnight Airway Assessment: Patient can open mouth completely, TMJ function normal, Neck with adequate range of motion Dentition: dentures removed Possible difficult airway: No ASA Classification *see protocol: CLASS II-Mild systemic disease
[2017-07-25] MEDS ORDERED: D5% in Water 1,000 ML IVC PRN (10:57)
[2017-07-25] MEDS ORDERED: Dextrose Gel 15 GM PO PRN ×2 (10:57)
[2017-07-25] MEDS ORDERED: *HR* Dextrose 50 % in Water (Syg) 50 ML SYRINGE IVP PRN (10:57)
[2017-07-25] MEDS ORDERED: Verapamil 5 MG/2 ML VIAL ONE (11:05)
[2017-07-25] MEDS ORDERED: Tirofiban 5 MG/100ML 5 MG/100 ML BAG IV ONE (12:07)
[2017-07-25] MEDS ORDERED: *HR* Metoprolol 5 MG/5 ML VIAL IVP ONE (12:20)
--- NOTE | 2017-07-25 13:12 | Procedure Note ---
Date of procedure: 07/25/17 Pre-op diagnosis: NSTEMI Post-op diagnosis: same Procedure: Left cath, PTCA LAD unsuccessful. There is proximal calcified lesion with some right to left collateral to the LAD. Trouble crossing proximal 100% lesion but prevailed with [place] after failure with the [place] and the Choice PT. Finally crossed with the wire but not sufficient. backup with the JL4 and had to exchange everything to a XB3.5 guide. Finally able to cross again with the [place] then could not place the 2.5 balloon to predilate and could not place the 1.5 and finally could not cross with the 1.25 Combat Systems Operator. Procedure aborted after successfully wiring but could not cross with the balloon. . Consideration for leaving it alone and or attempt Rotablator at the [facility]. Not good candidate for CABG in my opinion. I discussed with the son in detail. They will make considered donna kim. Anesthesia: local Surgeon: Bello Lomax Estimated blood loss (cc): 40 Pathology: none sent Condition: stable Disposition: PACU
--- NOTE | 2017-07-25 13:13 | Invasive Diagnostic Lab Proc ---
Name: Philip Lopez Date of Study: 07/25/2017 Date: 1930 Ht: 70.1in Medical Record#: [id number] Age: 86 Wt: 166.23lb Gender: Male BSA: 1.93 Order #: [id number] BMI: 23.8 Physicians Procedure Physician: Bello Lomax MD Referring MD: Referring MD: Staff Name Position Time In Ester Sally RN Monitor 10:56 AM Lashae Rand RT (R) Scrub 10:56 AM Marek Sparrow RN Paper Processing Machine Helper 10:56 AM Juanita Perales RN Paper Processing Machine Helper 10:56 AM Indications Indication Non-Stemi Procedures Performed Procedure L HRT ARTERY/VENTRICLE ANGIO Failed Procedure Pre-Procedure Checklist Informed consent is complete signed and on chart. H&P is on chart. ID band is on and ID verified with patient. Patient NPO for procedure The procedure was described for the patient and questions were answered. Blood Pressure: 176/77 ECG is on chart. Rhythm: NSR w/ BBB Plan of Care Patient will tolerate the procedure without complications. Adequate level of comfort will be maintained. Hemodynamics will remain stable Patient will recover from procedure without complications. Respiratory function will be maintained. Cardiac rhythm will remain stable. Patient temperature will be maintained. Patient and/or family have verbalized understanding of the procedure. Patient Education Intravenous Access Time IV Size Location DC'd Fluid/Drip Rate Units RN 10:57 AM 18g 1 1/4" Patent On Arrival Lt Arm 0.9NaCl 25 ml/hr Marek Sparrow RN 10:57 AM 18g 1 1/4" Patent On Arrival Rt Arm 10:57 AM 20g 1 1/4" Patent On Arrival Rt Wrist Yes Allergies gabapentin Vital Signs Time BP (mmHg) HR (bpm) O2 Sat. RR (bpm) LOC 10:57 AM 176 / 77 85 95 % 16 5 = Fully awake and oriented or at pre-proc level 11:00 AM / % 5 = Fully awake and oriented or at pre-proc level 11:00 AM / % 4 = Oriented but drowsy 11:16 AM / % 4 = Oriented but drowsy 11:31 AM / % 4 = Oriented but drowsy 11:46 AM / % 4 = Oriented but drowsy 12:01 PM / % 4 = Oriented but drowsy 12:16 PM / % 4 = Oriented but drowsy 11:24 AM 157 / 85 73 93 % 15 11:29 AM 157 / 86 86 93 % 14 11:34 AM 160 / 79 80 93 % 14 11:39 AM 171 / 87 84 94 % 14 11:44 AM 169 / 94 85 98 % 15 11:49 AM 170 / 78 82 97 % 15 11:54 AM 164 / 82 82 97 % 15 11:59 AM 171 / 90 84 98 % 14 12:04 PM 167 / 84 82 97 % 15 12:09 PM 170 / 84 81 97 % 15 10:55 AM 169 / 97 83 95 % 19 10:59 AM 160 / 81 75 90 % 15 11:04 AM 155 / 74 75 93 % 15 11:09 AM 158 / 88 77 93 % 16 11:14 AM 154 / 83 78 93 % 15 11:19 AM 158 / 83 75 94 % 16 12:14 PM 170 / 81 79 97 % 15 12:19 PM 182 / 92 82 97 % 16 12:24 PM 164 / 84 77 97 % 15 12:29 PM 168 / 81 79 96 % 15 12:34 PM 168 / 83 78 96 % 17 12:39 PM 164 / 82 79 97 % 16 12:44 PM 166 / 80 77 96 % 16 12:32 PM / % 5 = Fully awake and oriented or at pre-proc level Procedural Medications Time Medication Dose Units Method Given By 11:00 AM Oxygen 2 L/min nasal cannula Marek Sparrow RN 11:00 AM Versed 0.5 mg Intravenous Marek Sparrow RN 11:00 AM Fentanyl 25 mcg Intravenous Marek Sparrow RN 11:09 AM Lidocaine 2% 1 ml Subcutaneous Bello Lomax MD 11:22 AM Lidocaine 2% 9 ml Subcutaneous Bello Lomax MD 11:41 AM Heparin 4000 units Intravenous Marek Sparrow RN 12:11 PM Angiomax 0.75mg/kg bolus: 37.5 ml Intravenous Marek Sparrow RN 12:12 PM Aggrastat 5mg/100ml 13.5 ml/hr Intravenous Marek Sparrow RN 12:20 PM Lopressor 2.5 mg Intravenous Marek Sparrow RN ASA Classification: CLASS II- Mild systemic disease (i.e. well-controlled diabetes, hypertension, asthma, cigarette smoking) Stephane Score Preprocedure Postprocedure Activity 2- Moves 4 extremities sustained head lift Activity 2- Moves 4 extremities sustained head lift Circulation 2- SBP +/= 20 points of pre-anesthetic level Circulation 2- SBP +/= 20 points of pre-anesthetic level Consciousness 2- Awake and alert oriented x 3 Consciousness 2- Awake and alert oriented x 3 O2 Saturation 2- Able to maintain O2 satruation of 92% on room air O2 Saturation 2- Able to maintain O2 satruation of 92% on room air Respiratory 2- Able to deep breathe and cough well Respiratory 2- Able to deep breathe and cough well Total Score 10 Total Score 10 Contrast Agent: Isovue Diagnostic Contrast: 287 ml Total Contrast: 287 ml Fluoro Dose: 3167 mGy Activated Clotting Time Time Seconds to Clot 11:39 AM 191 12:07 PM 285 12:45 PM 266 Procedure Log Time Note Enter By 10:37 AM CathStat 10:48 AM Pt arrived to tanbark laborer 2 at 10:48 scoates 10:48 AM Physician arrived 10:48 scoates 10:48 AM Meet and greet completed scoates 10:48 AM Sign in performed according to hospital policy. scoates 10:48 AM Procedure start 10:48 scoates 10:54 AM Vitals capture started with the following parameters, Patient=Adult, Interval=5 min, Initial Mcovzcxw=507 mmHg, Deflation Rate=5 mmHg, Cuff placed on Right Arm 10:55 AM HR=83 bpm, MSLO=444/97 mmhg, SpO2=95.0 %, Resp=19 B/min, EtCO2=31 mmHg, Comment=NSR w/ BBB 10:55 AM Recorded ECG: HR=79 Condition=Condition 1 10:56 AM Sally Norman RN Position: Monitor Time in: 10:56 scoates 10:56 AM Rand Bhardwaj RT (R) Position: Scrub Time in: 10:56 scoates 10:56 AM Marek Sparrow RN Position: Paper Processing Machine Helper Time in: 10:56 scoates 10:57 AM Juanita Perales RN Position: Paper Processing Machine Helper Time in: 10:56 scoates 10:57 AM Patient charges- Angio tray pack, Navilyst 3mm J, Pulse Oximetry and ACIST tubing and transducer scoates 10:57 AM IV to right wrist removed. tip intact dressing applied scoates 10:59 AM HR=75 bpm, QZWE=314/81 mmhg, SpO2=90.0 %, Resp=15 B/min, EtCO2=30 mmHg, Comment=NSR w/ BBB 10:59 AM Case Delayed No scoates 11:00 AM Hair removed from procedure site in holding area using clippers. Right wrist prepped with Chloraprep by Juanita Perales RN, safety strap applied then patient was draped. Skin intact. scoates 11:00 AM Hair removed from procedure site in procedure lab using clippers. Right groin prepped with Chloraprep by Juanita Perales RN, safety strap applied then patient was draped. Skin intact. scoates 11:00 AM ASA Class CLASS II- Mild systemic disease (i.e. well-controlled diabetes, hypertension, asthma, cigarette smoking) scoates 11:00 AM Time: 11:00 Oxygen on at 2 L/min per nasal cannula by Marek Sparrow RN scoates 11:00 AM Time: 11:00 Versed 0.5 mg Intravenous Given by Marek Sparrow RN scoates 11:00 AM Time: 11:00 Fentanyl 25 mcg Intravenous Given by Marek Sparrow RN scoates 11:00 AM Time: 11:00 Patient comfortable and pain free: Yes scoates 11:00 AM Time: 11:00LOC: 5 = Fully awake and oriented or at pre-proc level scoates 11:01 AM Clinical Presentation: Non-STEMI scoates 11:04 AM HR=75 bpm, MUPJ=014/74 mmhg, SpO2=93.0 %, Resp=15 B/min, EtCO2=32 mmHg, Comment=NSR w/ BBB 11:09 AM HR=77 bpm, TJAO=599/88 mmhg, SpO2=93.0 %, Resp=16 B/min, EtCO2=32 mmHg, Comment=NSR w/ BBB 11:09 AM Time out performed according to hospital policy scoates 11:10 AM Time: :09 1 ml Lidocaine 2% to right radial Subcutaneous Given by Bello Lomax MD scoates 11:10 AM Pressure channel 3 zero failed. 11:10 AM Pressure channel 3 zeroed. 11:14 AM HR=78 bpm, WNYG=239/83 mmhg, SpO2=93.0 %, Resp=15 B/min, EtCO2=31 mmHg, Comment=NSR w/ BBB 11:16 AM Time: 11:00LOC: 4 = Oriented but drowsy scoates 11:16 AM Time: 11:00 Patient comfortable and pain free: Yes scoates 11:19 AM HR=75 bpm, DJNV=655/83 mmhg, SpO2=94.0 %, Resp=16 B/min, EtCO2=32 mmHg, Comment=NSR w/ BBB 11:21 AM Unable to access wrist scoates 11: AM Time: 11: 9 ml Lidocaine 2% to right groin Subcutaneous Given by Bello Lomax MD scoates 11:23 AM Access obtained by percutaneous puncture. 6Fr 10cm Terumo [place] sheath placed in right Femoral artery. [id number] scoates 11:24 AM HR=73 bpm, UDMN=938/85 mmhg, SpO2=93.0 %, Resp=15 B/min, EtCO2=32 mmHg, Comment=NSR w/ BBB 11:25 AM 5Fr FL 4 catheter inserted over the wire DNC scoates 11:25 AM Recorded Pressure: Ao, HR=75, Condition=Condition 1 (Aorta) Ao 121/64/92 11:26 AM LCA angiography performed in multiple views. scoates 11:27 AM Catheter removed scoates 11:27 AM 5Fr FR 4 catheter inserted over the wire DNC scoates 11:28 AM RCA angiography performed in multiple views. scoates 11:28 AM Recorded Pressure: Ao, HR=92, Condition=Condition 1 (Aorta) Ao 152/39/78 11:29 AM HR=86 bpm, LFAU=803/86 mmhg, SpO2=93.0 %, Resp=14 B/min, EtCO2=32 mmHg, Comment=NSR w/ BBB 11:30 AM Catheter removed scoates 11:31 AM 5Fr Pigtail catheter inserted over the wire DNC scoates 11:31 AM Catheter selectively placed in left ventricle scoates 11:31 AM Time: 11:16 Patient comfortable and pain free: Yes scoates 11:31 AM Time: 11:16LOC: 4 = Oriented but drowsy scoates 11:32 AM Recorded Pressure: LV, HR=81, Condition=Condition 1 (Left Ventricle) LV 139/4/20 11:32 AM Bolus angiogram of left Ventricle complete: 10 ml/sec for a total of 30 mls scoates 11:33 AM Recorded Pressure: LV, Ao, HR=81, Condition=Condition 1 (Left Ventricle) LV 141/6/24, (Aorta) Ao 154/65/102 11:34 AM Catheter removed scoates 11:34 AM Coronary Dominance: right scoates 11:34 AM Lesion found in Proximal LAD. Pre Stenosis: 99 Pre ANGELICA Flow: 0: No Flow/No perfusion scoates 11:34 AM HR=80 bpm, CFEE=785/79 mmhg, SpO2=93.0 %, Resp=14 B/min, EtCO2=32 mmHg, Comment=NSR w/ BBB 11:35 AM Proximal Left Anterior Descending Coronary Artery with 99% stenosis. scoates 11:36 AM Inflation device was opened. scoates 11:36 AM PCI Status Urgent scoates 11:36 AM PCI Indication: PCI for high risk Non-STEMI or unstable angina scoates 11:36 AM PCI lesion in Proximal LAD. scoates 11:36 AM 6Fr XB3.5 [place] Bright-Tip guide catheter was used to cannulate the PCI vessel successfully. reused? No scoates 11:37 AM Recorded Pressure: Ao, HR=81, Condition=Condition 1 (Aorta) Ao 141/76/105 11:37 AM ACT drawn scoates 11:38 AM Unable to engage scoates 11:38 AM Guide catheter removed intact. scoates 11:39 AM 6Fr XB3.0 [place] Bright-Tip guide catheter was used to cannulate the PCI vessel successfully. reused? No scoates 11:39 AM HR=84 bpm, KYJU=911/87 mmhg, SpO2=94.0 %, Resp=14 B/min, EtCO2=32 mmHg, Comment=NSR w/ BBB 11:39 AM At 11:39 the ACT was 191 seconds. scoates 11:40 AM Recorded Pressure: Ao, HR=84, Condition=Condition 1 (Aorta) Ao 150/60/97 11:41 AM Time: 11:41 Heparin 4000 units Intravenous Given by Marek Sparrow RN scoates 11:41 AM Unable to engage scoates 11:41 AM Guide catheter removed intact. scoates 11:43 AM 6Fr JL4 [place] Bright-Tip guide catheter was used to cannulate the PCI vessel successfully. reused? No scoates 11:44 AM HR=85 bpm, GDKU=938/94 mmhg, SpO2=98.0 %, Resp=15 B/min, EtCO2=32 mmHg, Comment=NSR w/ BBB 11:44 AM Recorded Pressure: Ao, HR=84, Condition=Condition 1 (Aorta) Ao 126/57/86 11:45 AM .014 Prowater 180cm guide wire across target lesion- successful. reused? No scoates 11:46 AM Time: 11:31LOC: 4 = Oriented but drowsy scoates 11:46 AM Time: 11:31 Patient comfortable and pain free: Yes scoates 11:46 AM Recorded Pressure: Ao, HR=84, Condition=Condition 1 (Aorta) Ao 148/74/106 11:49 AM .014 ChoICE PT Extra Support 182cm guide wire across target lesion- successful. reused? No scoates 11:49 AM HR=82 bpm, PCGV=129/78 mmhg, SpO2=97.0 %, Resp=15 B/min, EtCO2=30 mmHg, Comment=NSR w/ BBB 11:54 AM HR=82 bpm, OZJG=319/82 mmhg, SpO2=97.0 %, Resp=15 B/min, EtCO2=32 mmHg, Comment=NSR w/ BBB 11:59 AM HR=84 bpm, BNWG=677/90 mmhg, SpO2=98.0 %, Resp=14 B/min, EtCO2=31 mmHg, Comment=NSR w/ BBB 12:01 PM Guide wire removed intact. Prowater removed scoates 12:01 PM Time: 11:46LOC: 4 = Oriented but drowsy scoates 12:04 PM HR=82 bpm, TFCH=282/84 mmhg, SpO2=97.0 %, Resp=15 B/min, EtCO2=32 mmHg, Comment=NSR w/ BBB 12:06 PM Recorded Pressure: Ao, HR=84, Condition=Condition 1 (Aorta) Ao 141/74/103 12:07 PM .014 [place] 190cm guide wire across target lesion- successful. reused? No scoates 12:07 PM At 12:07 the ACT was 285 seconds. scoates 12:08 PM Recorded Pressure: Ao, HR=82, Condition=Condition 1 (Aorta) Ao 149/77/109 12:09 PM HR=81 bpm, RCYM=588/84 mmhg, SpO2=97.0 %, Resp=15 B/min, EtCO2=32 mmHg, Comment=NSR w/ BBB 12:09 PM 2.5 mm x 12 mm Emerge Monorail balloon across target lesion- successful. reused? No scoates 12:12 PM Time: 12:11 Angiomax 0.75mg/kg bolus: 37.5 ml Intravenous Given by Marek Sparrow RN Cooper pump scoates 12:12 PM Time: 12:12 Aggrastat 5mg/100ml 13.5 ml/hr Intravenous Given by Marek Sparrow RN Cooper pump scoates 12:13 PM Balloon catheter removed intact. Unable to cross. scoates 12:14 PM 1.5 mm x 12 mm Mini Trek Rx balloon across target lesion- successful. reused? No scoates 12:14 PM HR=79 bpm, DXSJ=087/81 mmhg, SpO2=97.0 %, Resp=15 B/min, EtCO2=33 mmHg, Comment=NSR w/ BBB 12:16 PM Time: 12:01LOC: 4 = Oriented but drowsy scoates 12:16 PM Time: 12:01 Patient comfortable and pain free: Yes scoates 12:17 PM Guide wire removed intact x2. scoates 12:18 PM Guide catheter removed intact. scoates 12:19 PM HR=82 bpm, KHSN=163/92 mmhg, SpO2=97.0 %, Resp=16 B/min, EtCO2=32 mmHg, Comment=NSR w/ BBB 12:21 PM Time: 12:20 Lopressor 2.5 mg Intravenous Given by Marek Sparrow RN scoates 12:22 PM 6Fr XB3.5 [place] Bright-Tip guide catheter was used to cannulate the PCI vessel successfully. reused? No scoates 12:23 PM .014 [place]ath 190cm guide wire across target lesion- successful. reused? Yes scoates 12:24 PM Recorded Pressure: Ao, HR=78, Condition=Condition 1 (Aorta) Ao 152/76/109 12:24 PM HR=77 bpm, ODVB=553/84 mmhg, SpO2=97.0 %, Resp=15 B/min, EtCO2=32 mmHg, Comment=NSR w/ BBB 12:29 PM HR=79 bpm, FHCD=734/81 mmhg, SpO2=96.0 %, Resp=15 B/min, EtCO2=33 mmHg, Comment=NSR w/ BBB 12:30 PM Balloon reinserted 1.5 x12 scoates 12:32 PM Time: 12:16 Patient comfortable and pain free: Yes scoates 12:32 PM Time: 12:16LOC: 4 = Oriented but drowsy scoates 12:34 PM Balloon catheter removed intact. scoates 12:34 PM HR=78 bpm, UZTW=175/83 mmhg, SpO2=96.0 %, Resp=17 B/min, EtCO2=29 mmHg, Comment=NSR w/ BBB 12:34 PM 1.2 mm x 12 mm Traffic Representative Monorail balloon across target lesion- successful. reused? No scoates 12:38 PM unable to cross scoates 12:38 PM Balloon catheter removed intact. scoates 12:38 PM Guide wire removed intact. scoates 12:39 PM Guide catheter removed intact. scoates 12:39 PM HR=79 bpm, KRXN=884/82 mmhg, SpO2=97.0 %, Resp=16 B/min, EtCO2=32 mmHg, Comment=NSR w/ BBB 12:40 PM Bolus angiogram of right Femoral complete: 4 ml/sec for a total of 7 mls scoates 12:40 PM Recorded Pressure: Ao, HR=83, Condition=Condition 1 (Aorta) Ao 164/72/108 12:42 PM Failed PCI scoates 12:43 PM Procedure completed at 12:43 scoates 12:43 PM Sign out completed: Radiation Dose 3166.64 mGy Fluoro Time: 37 Isovue 370 - 200ml contrast 287 ml given by Bello Lomax MD. Complications: NoneCardiac Rehab Consult needed: NoConfirmed administered medications: Yes scoates 12:43 PM Isovue 370 - 500ml,1 Bottle(s) used. scoates 12:44 PM HR=77 bpm, FPOF=302/80 mmhg, SpO2=96.0 %, Resp=16 B/min, EtCO2=31 mmHg, Comment=NSR w/ BBB 12:45 PM At 12:45 the ACT was 266 seconds. scoates 12:45 PM Sheath left in place to be pulled on floor/holding area scoates 12:45 PM Post ECG NSR w/ BBB scoates 12:46 PM Post Blood Pressure 166/80 scoates 12:46 PM 12:46 Post Pulses Bilateral DP & PT 2+ scoates 12:46 PM Information taught Cardiac Cath scoates 12:46 PM Education needs Procedure, Plan of Care, and Safe & Effective Use of Medications scoates 12:46 PM Learning barriers :None scoates 12:46 PM Education Methods Verbal scoates 12:46 PM Education evaluation Able to repeat information scoates 12:48 PM Time: 12:32LOC: 5 = Fully awake and oriented or at pre-proc level scoates 12:48 PM Time: 12:32 Patient comfortable and pain free: Yes scoates 12:48 PM Site status No bleeding/hematoma - Rt Groin as reported by Sites, Rand RT (R) at 12:48 scoates 12:48 PM Opsite applied oozing around sheath pressure held per T. Sites RT scoates 12:53 PM Report given to Idania RAE Pt taken to 2N Room #1. 12:53 scoates 12:53 PM Plavix, Effient or Brilinta given No scoates 12:53 PM Delay to floor No scoates 12:53 PM Patient out of room: 12:53 scoates 12:53 PM Family placed in consult room. scoates 12:53 PM Complications: None scoates 12:53 PM Fluoro Time: 37 scoates 12:54 PM Isovue 370 - 200ml contrast 287 ml given by Bello Lomax MD. scoates 12:54 PM Radiation Dose 3166.64 mGy scoates 12:56 PM Lesion found in Mid RCA. Pre Stenosis: 50 Pre ANGELICA Flow: 3: Complete and Brisk Flow/Perfusion scoates 12:57 PM Lesion found in LMCA. Pre Stenosis: 50 Pre ANGELICA Flow: 3: Complete and Brisk Flow/Perfusion scoates 12:57 PM Left Main Coronary Artery with 50% stenosis scoates 12:57 PM Right Coronary, Right Posterior Descending Arteries with Right Posterolateral and Acute Marginal branches with 50 % stenosis. scoates Complications Complication None Hemodynamics Pressures Site Systolic/A Wave Diastolic/V Wave Mean AO 121 64 92 AO 152 39 78 LV 139 4 20 LV 141 6 24 AO 154 65 102 AO 141 76 105 AO 150 60 97 AO 126 57 86 AO 148 74 106 AO 141 74 103 AO 149 77 109 AO 152 76 109 AO 164 72 108 Post Procedure Information Blood Pressure: 166/80 mmHg Rhythm: NSR w/ BBB Post procedural instructions were given Site Checks Time Location Status Staff Sheath In? Note 12:48 PM Rt Groin No bleeding/hematoma Sites, Rand RT (R) Pulses Time Site Pre-Procedure Post-Procedure Note 07/25/2017 10:57:00 AM Bilateral DP & PT 2+ 07/25/2017 10:57:00 AM Bilateral radial 2+ 07/25/2017 10:57:00 AM Rt Radial Normal plethysmography's Test 12:46:00 PM Bilateral DP & PT 2+ Updated by Juanita Batista RN on 07/25/2017 1:05:50 PM electronically signed on 07/25/2017 1:07:14 PM with status of Final
--- NOTE | 2017-07-25 13:34 | Invasive Diagnostic Lab Proc ---
Name: Philip Lopez Date of Study: 07/25/2017 Date: 1930 Ht: 70.1in Medical Record#: [id number] Age: 86 Wt: 166.23lb Gender: Male BSA: 1.93 Order #: [id number] BMI: 23.8 Physicians Procedure Physician: Bello Lomax MD Referring MD: Referring MD: Staff Name Position Time In Ester Sally RN Monitor 10:56 AM Lashae Rand RT (R) Scrub 10:56 AM Marek Sparrow RN Child Adolescent Care 10:56 AM Juanita Perales RN Child Adolescent Care 10:56 AM Indications Indication Non-Stemi Procedures Performed Procedure L HRT ARTERY/VENTRICLE ANGIO Failed Procedure Pre-Procedure Checklist Informed consent is complete signed and on chart. H&P is on chart. ID band is on and ID verified with patient. Patient NPO for procedure The procedure was described for the patient and questions were answered. Blood Pressure: 176/77 ECG is on chart. Rhythm: NSR w/ BBB Plan of Care Patient will tolerate the procedure without complications. Adequate level of comfort will be maintained. Hemodynamics will remain stable Patient will recover from procedure without complications. Respiratory function will be maintained. Cardiac rhythm will remain stable. Patient temperature will be maintained. Patient and/or family have verbalized understanding of the procedure. Patient Education Intravenous Access Time IV Size Location DC'd Fluid/Drip Rate Units RN 10:57 AM 18g 1 1/4" Patent On Arrival Lt Arm 0.9NaCl 25 ml/hr Marek Sparrow RN 10:57 AM 18g 1 1/4" Patent On Arrival Rt Arm 10:57 AM 20g 1 1/4" Patent On Arrival Rt Wrist Yes Allergies gabapentin Vital Signs Time BP (mmHg) HR (bpm) O2 Sat. RR (bpm) LOC 10:57 AM 176 / 77 85 95 % 16 5 = Fully awake and oriented or at pre-proc level 11:00 AM / % 5 = Fully awake and oriented or at pre-proc level 11:00 AM / % 4 = Oriented but drowsy 11:16 AM / % 4 = Oriented but drowsy 11:31 AM / % 4 = Oriented but drowsy 11:46 AM / % 4 = Oriented but drowsy 12:01 PM / % 4 = Oriented but drowsy 12:16 PM / % 4 = Oriented but drowsy 11:24 AM 157 / 85 73 93 % 15 11:29 AM 157 / 86 86 93 % 14 11:34 AM 160 / 79 80 93 % 14 11:39 AM 171 / 87 84 94 % 14 11:44 AM 169 / 94 85 98 % 15 11:49 AM 170 / 78 82 97 % 15 11:54 AM 164 / 82 82 97 % 15 11:59 AM 171 / 90 84 98 % 14 12:04 PM 167 / 84 82 97 % 15 12:09 PM 170 / 84 81 97 % 15 10:55 AM 169 / 97 83 95 % 19 10:59 AM 160 / 81 75 90 % 15 11:04 AM 155 / 74 75 93 % 15 11:09 AM 158 / 88 77 93 % 16 11:14 AM 154 / 83 78 93 % 15 11:19 AM 158 / 83 75 94 % 16 12:14 PM 170 / 81 79 97 % 15 12:19 PM 182 / 92 82 97 % 16 12:24 PM 164 / 84 77 97 % 15 12:29 PM 168 / 81 79 96 % 15 12:34 PM 168 / 83 78 96 % 17 12:39 PM 164 / 82 79 97 % 16 12:44 PM 166 / 80 77 96 % 16 12:32 PM / % 5 = Fully awake and oriented or at pre-proc level Procedural Medications Time Medication Dose Units Method Given By 11:00 AM Oxygen 2 L/min nasal cannula Marek Sparrow RN 11:00 AM Versed 0.5 mg Intravenous Marek Sparrow RN 11:00 AM Fentanyl 25 mcg Intravenous Marek Sparrow RN 11:09 AM Lidocaine 2% 1 ml Subcutaneous Bello Lomax MD 11:22 AM Lidocaine 2% 9 ml Subcutaneous Bello Lomax MD 11:41 AM Heparin 4000 units Intravenous Marek Sparrow RN 12:11 PM Angiomax 0.75mg/kg bolus: 37.5 ml Intravenous Marek Sparrow RN 12:12 PM Aggrastat 5mg/100ml 13.5 ml/hr Intravenous Marek Sparrow RN 12:20 PM Lopressor 2.5 mg Intravenous Marek Sparrow RN ASA Classification: CLASS II- Mild systemic disease (i.e. well-controlled diabetes, hypertension, asthma, cigarette smoking) Stephane Score Preprocedure Postprocedure Activity 2- Moves 4 extremities sustained head lift Activity 2- Moves 4 extremities sustained head lift Circulation 2- SBP +/= 20 points of pre-anesthetic level Circulation 2- SBP +/= 20 points of pre-anesthetic level Consciousness 2- Awake and alert oriented x 3 Consciousness 2- Awake and alert oriented x 3 O2 Saturation 2- Able to maintain O2 satruation of 92% on room air O2 Saturation 2- Able to maintain O2 satruation of 92% on room air Respiratory 2- Able to deep breathe and cough well Respiratory 2- Able to deep breathe and cough well Total Score 10 Total Score 10 Contrast Agent: Isovue Diagnostic Contrast: 287 ml Total Contrast: 287 ml Fluoro Dose: 3167 mGy Activated Clotting Time Time Seconds to Clot 11:39 AM 191 12:07 PM 285 12:45 PM 266 Procedure Log Time Note Enter By 10:37 AM CathStat 10:48 AM Pt arrived to metallurgical lab technician 2 at 10:48 scoates 10:48 AM Physician arrived 10:48 scoates 10:48 AM Meet and greet completed scoates 10:48 AM Sign in performed according to hospital policy. scoates 10:48 AM Procedure start 10:48 scoates 10:54 AM Vitals capture started with the following parameters, Patient=Adult, Interval=5 min, Initial Lgbzodeu=626 mmHg, Deflation Rate=5 mmHg, Cuff placed on Right Arm 10:55 AM HR=83 bpm, KOAA=005/97 mmhg, SpO2=95.0 %, Resp=19 B/min, EtCO2=31 mmHg, Comment=NSR w/ BBB 10:55 AM Recorded ECG: HR=79 Condition=Condition 1 10:56 AM Sally Norman RN Position: Monitor Time in: 10:56 scoates 10:56 AM Rand Bhardwaj RT (R) Position: Scrub Time in: 10:56 scoates 10:56 AM Marek Sparrow RN Position: Child Adolescent Care Time in: 10:56 scoates 10:57 AM Juanita Perales RN Position: Child Adolescent Care Time in: 10:56 scoates 10:57 AM Patient charges- Angio tray pack, Navilyst 3mm J, Pulse Oximetry and ACIST tubing and transducer scoates 10:57 AM IV to right wrist removed. tip intact dressing applied scoates 10:59 AM HR=75 bpm, OXEE=958/81 mmhg, SpO2=90.0 %, Resp=15 B/min, EtCO2=30 mmHg, Comment=NSR w/ BBB 10:59 AM Case Delayed No scoates 11:00 AM Hair removed from procedure site in holding area using clippers. Right wrist prepped with Chloraprep by Juanita Perales RN, safety strap applied then patient was draped. Skin intact. scoates 11:00 AM Hair removed from procedure site in procedure lab using clippers. Right groin prepped with Chloraprep by Juanita Perales RN, safety strap applied then patient was draped. Skin intact. scoates 11:00 AM ASA Class CLASS II- Mild systemic disease (i.e. well-controlled diabetes, hypertension, asthma, cigarette smoking) scoates 11:00 AM Time: 11:00 Oxygen on at 2 L/min per nasal cannula by Marek Sparrow RN scoates 11:00 AM Time: 11:00 Versed 0.5 mg Intravenous Given by Marek Sparrow RN scoates 11:00 AM Time: 11:00 Fentanyl 25 mcg Intravenous Given by Marek Sparrow RN scoates 11:00 AM Time: 11:00 Patient comfortable and pain free: Yes scoates 11:00 AM Time: 11:00LOC: 5 = Fully awake and oriented or at pre-proc level scoates 11:01 AM Clinical Presentation: Non-STEMI scoates 11:04 AM HR=75 bpm, YDIO=667/74 mmhg, SpO2=93.0 %, Resp=15 B/min, EtCO2=32 mmHg, Comment=NSR w/ BBB 11:09 AM HR=77 bpm, GLTF=019/88 mmhg, SpO2=93.0 %, Resp=16 B/min, EtCO2=32 mmHg, Comment=NSR w/ BBB 11:09 AM Time out performed according to hospital policy scoates 11:10 AM Time: :09 1 ml Lidocaine 2% to right radial Subcutaneous Given by Bello Lomax MD scoates 11:10 AM Pressure channel 3 zero failed. 11:10 AM Pressure channel 3 zeroed. 11:14 AM HR=78 bpm, VMUW=322/83 mmhg, SpO2=93.0 %, Resp=15 B/min, EtCO2=31 mmHg, Comment=NSR w/ BBB 11:16 AM Time: 11:00LOC: 4 = Oriented but drowsy scoates 11:16 AM Time: 11:00 Patient comfortable and pain free: Yes scoates 11:19 AM HR=75 bpm, CXLK=545/83 mmhg, SpO2=94.0 %, Resp=16 B/min, EtCO2=32 mmHg, Comment=NSR w/ BBB 11:21 AM Unable to access wrist scoates 11: AM Time: 11: 9 ml Lidocaine 2% to right groin Subcutaneous Given by Bello Lomax MD scoates 11:23 AM Access obtained by percutaneous puncture. 6Fr 10cm Terumo [place] sheath placed in right Femoral artery. [id number] scoates 11:24 AM HR=73 bpm, YDXB=351/85 mmhg, SpO2=93.0 %, Resp=15 B/min, EtCO2=32 mmHg, Comment=NSR w/ BBB 11:25 AM 5Fr FL 4 catheter inserted over the wire DNC scoates 11:25 AM Recorded Pressure: Ao, HR=75, Condition=Condition 1 (Aorta) Ao 121/64/92 11:26 AM LCA angiography performed in multiple views. scoates 11:27 AM Catheter removed scoates 11:27 AM 5Fr FR 4 catheter inserted over the wire DNC scoates 11:28 AM RCA angiography performed in multiple views. scoates 11:28 AM Recorded Pressure: Ao, HR=92, Condition=Condition 1 (Aorta) Ao 152/39/78 11:29 AM HR=86 bpm, IHSO=459/86 mmhg, SpO2=93.0 %, Resp=14 B/min, EtCO2=32 mmHg, Comment=NSR w/ BBB 11:30 AM Catheter removed scoates 11:31 AM 5Fr Pigtail catheter inserted over the wire DNC scoates 11:31 AM Catheter selectively placed in left ventricle scoates 11:31 AM Time: 11:16 Patient comfortable and pain free: Yes scoates 11:31 AM Time: 11:16LOC: 4 = Oriented but drowsy scoates 11:32 AM Recorded Pressure: LV, HR=81, Condition=Condition 1 (Left Ventricle) LV 139/4/20 11:32 AM Bolus angiogram of left Ventricle complete: 10 ml/sec for a total of 30 mls scoates 11:33 AM Recorded Pressure: LV, Ao, HR=81, Condition=Condition 1 (Left Ventricle) LV 141/6/24, (Aorta) Ao 154/65/102 11:34 AM Catheter removed scoates 11:34 AM Coronary Dominance: right scoates 11:34 AM Lesion found in Proximal LAD. Pre Stenosis: 99 Pre ANGELICA Flow: 0: No Flow/No perfusion scoates 11:34 AM HR=80 bpm, CGZD=181/79 mmhg, SpO2=93.0 %, Resp=14 B/min, EtCO2=32 mmHg, Comment=NSR w/ BBB 11:35 AM Proximal Left Anterior Descending Coronary Artery with 99% stenosis. scoates 11:36 AM Inflation device was opened. scoates 11:36 AM PCI Status Urgent scoates 11:36 AM PCI Indication: PCI for high risk Non-STEMI or unstable angina scoates 11:36 AM PCI lesion in Proximal LAD. scoates 11:36 AM 6Fr XB3.5 [place] Bright-Tip guide catheter was used to cannulate the PCI vessel successfully. reused? No scoates 11:37 AM Recorded Pressure: Ao, HR=81, Condition=Condition 1 (Aorta) Ao 141/76/105 11:37 AM ACT drawn scoates 11:38 AM Unable to engage scoates 11:38 AM Guide catheter removed intact. scoates 11:39 AM 6Fr XB3.0 [place] Bright-Tip guide catheter was used to cannulate the PCI vessel successfully. reused? No scoates 11:39 AM HR=84 bpm, JHBJ=917/87 mmhg, SpO2=94.0 %, Resp=14 B/min, EtCO2=32 mmHg, Comment=NSR w/ BBB 11:39 AM At 11:39 the ACT was 191 seconds. scoates 11:40 AM Recorded Pressure: Ao, HR=84, Condition=Condition 1 (Aorta) Ao 150/60/97 11:41 AM Time: 11:41 Heparin 4000 units Intravenous Given by Marek Sparrow RN scoates 11:41 AM Unable to engage scoates 11:41 AM Guide catheter removed intact. scoates 11:43 AM 6Fr JL4 [place] Bright-Tip guide catheter was used to cannulate the PCI vessel successfully. reused? No scoates 11:44 AM HR=85 bpm, QOCW=261/94 mmhg, SpO2=98.0 %, Resp=15 B/min, EtCO2=32 mmHg, Comment=NSR w/ BBB 11:44 AM Recorded Pressure: Ao, HR=84, Condition=Condition 1 (Aorta) Ao 126/57/86 11:45 AM .014 [place] 180cm guide wire across target lesion- successful. reused? No scoates 11:46 AM Time: 11:31LOC: 4 = Oriented but drowsy scoates 11:46 AM Time: 11:31 Patient comfortable and pain free: Yes scoates 11:46 AM Recorded Pressure: Ao, HR=84, Condition=Condition 1 (Aorta) Ao 148/74/106 11:49 AM .014 ChoICE PT Extra Support 182cm guide wire across target lesion- successful. reused? No scoates 11:49 AM HR=82 bpm, CBKM=873/78 mmhg, SpO2=97.0 %, Resp=15 B/min, EtCO2=30 mmHg, Comment=NSR w/ BBB 11:54 AM HR=82 bpm, PTNQ=900/82 mmhg, SpO2=97.0 %, Resp=15 B/min, EtCO2=32 mmHg, Comment=NSR w/ BBB 11:59 AM HR=84 bpm, EAVU=309/90 mmhg, SpO2=98.0 %, Resp=14 B/min, EtCO2=31 mmHg, Comment=NSR w/ BBB 12:01 PM Guide wire removed intact. Prowater removed scoates 12:01 PM Time: 11:46LOC: 4 = Oriented but drowsy scoates 12:04 PM HR=82 bpm, QECS=102/84 mmhg, SpO2=97.0 %, Resp=15 B/min, EtCO2=32 mmHg, Comment=NSR w/ BBB 12:06 PM Recorded Pressure: Ao, HR=84, Condition=Condition 1 (Aorta) Ao 141/74/103 12:07 PM .014 [place] 190cm guide wire across target lesion- successful. reused? No scoates 12:07 PM At 12:07 the ACT was 285 seconds. scoates 12:08 PM Recorded Pressure: Ao, HR=82, Condition=Condition 1 (Aorta) Ao 149/77/109 12:09 PM HR=81 bpm, TDOH=035/84 mmhg, SpO2=97.0 %, Resp=15 B/min, EtCO2=32 mmHg, Comment=NSR w/ BBB 12:09 PM 2.5 mm x 12 mm Emerge Monorail balloon across target lesion- successful. reused? No scoates 12:12 PM Time: 12:11 Angiomax 0.75mg/kg bolus: 37.5 ml Intravenous Given by Marek Sparrow RN Cooper pump scoates 12:12 PM Time: 12:12 Aggrastat 5mg/100ml 13.5 ml/hr Intravenous Given by Marek Sparrow RN Cooper pump scoates 12:13 PM Balloon catheter removed intact. Unable to cross. scoates 12:14 PM 1.5 mm x 12 mm Mini Trek Rx balloon across target lesion- successful. reused? No scoates 12:14 PM HR=79 bpm, PBAS=909/81 mmhg, SpO2=97.0 %, Resp=15 B/min, EtCO2=33 mmHg, Comment=NSR w/ BBB 12:16 PM Time: 12:01LOC: 4 = Oriented but drowsy scoates 12:16 PM Time: 12:01 Patient comfortable and pain free: Yes scoates 12:17 PM Guide wire removed intact x2. scoates 12:18 PM Guide catheter removed intact. scoates 12:19 PM HR=82 bpm, ZSBB=524/92 mmhg, SpO2=97.0 %, Resp=16 B/min, EtCO2=32 mmHg, Comment=NSR w/ BBB 12:21 PM Time: 12:20 Lopressor 2.5 mg Intravenous Given by Marek Sparrow RN scoates 12:22 PM 6Fr XB3.5 [place] Bright-Tip guide catheter was used to cannulate the PCI vessel successfully. reused? No scoates 12:23 PM .014 [place] 190cm guide wire across target lesion- successful. reused? Yes scoates 12:24 PM Recorded Pressure: Ao, HR=78, Condition=Condition 1 (Aorta) Ao 152/76/109 12:24 PM HR=77 bpm, BWQX=623/84 mmhg, SpO2=97.0 %, Resp=15 B/min, EtCO2=32 mmHg, Comment=NSR w/ BBB 12:29 PM HR=79 bpm, WYDM=226/81 mmhg, SpO2=96.0 %, Resp=15 B/min, EtCO2=33 mmHg, Comment=NSR w/ BBB 12:30 PM Balloon reinserted 1.5 x12 scoates 12:32 PM Time: 12:16 Patient comfortable and pain free: Yes scoates 12:32 PM Time: 12:16LOC: 4 = Oriented but drowsy scoates 12:34 PM Balloon catheter removed intact. scoates 12:34 PM HR=78 bpm, GGSL=022/83 mmhg, SpO2=96.0 %, Resp=17 B/min, EtCO2=29 mmHg, Comment=NSR w/ BBB 12:34 PM 1.2 mm x 12 mm Greenhouse Manager Monorail balloon across target lesion- successful. reused? No scoates 12:38 PM unable to cross scoates 12:38 PM Balloon catheter removed intact. scoates 12:38 PM Guide wire removed intact. scoates 12:39 PM Guide catheter removed intact. scoates 12:39 PM HR=79 bpm, CBZX=682/82 mmhg, SpO2=97.0 %, Resp=16 B/min, EtCO2=32 mmHg, Comment=NSR w/ BBB 12:40 PM Bolus angiogram of right Femoral complete: 4 ml/sec for a total of 7 mls scoates 12:40 PM Recorded Pressure: Ao, HR=83, Condition=Condition 1 (Aorta) Ao 164/72/108 12:42 PM Failed PCI scoates 12:43 PM Procedure completed at 12:43 scoates 12:43 PM Sign out completed: Radiation Dose 3166.64 mGy Fluoro Time: 37 Isovue 370 - 200ml contrast 287 ml given by Bello Loamx MD. Complications: NoneCardiac Rehab Consult needed: NoConfirmed administered medications: Yes scoates 12:43 PM Isovue 370 - 500ml,1 Bottle(s) used. scoates 12:44 PM HR=77 bpm, BUAY=322/80 mmhg, SpO2=96.0 %, Resp=16 B/min, EtCO2=31 mmHg, Comment=NSR w/ BBB 12:45 PM At 12:45 the ACT was 266 seconds. scoates 12:45 PM Sheath left in place to be pulled on floor/holding area scoates 12:45 PM Post ECG NSR w/ BBB scoates 12:46 PM Post Blood Pressure 166/80 scoates 12:46 PM 12:46 Post Pulses Bilateral DP & PT 2+ scoates 12:46 PM Information taught Cardiac Cath scoates 12:46 PM Education needs Procedure, Plan of Care, and Safe & Effective Use of Medications scoates 12:46 PM Learning barriers :None scoates 12:46 PM Education Methods Verbal scoates 12:46 PM Education evaluation Able to repeat information scoates 12:48 PM Time: 12:32LOC: 5 = Fully awake and oriented or at pre-proc level scoates 12:48 PM Time: 12:32 Patient comfortable and pain free: Yes scoates 12:48 PM Site status No bleeding/hematoma - Rt Groin as reported by Rand Bhardwaj RT (R) at 12:48 scoates 12:48 PM Opsite applied oozing around sheath pressure held per T. Sites RT scoates 12:53 PM Report given to Idania RAE Pt taken to 2N Room #1. 12:53 scoates 12:53 PM Plavix, Effient or Brilinta given No scoates 12:53 PM Delay to floor No scoates 12:53 PM Family placed in consult room. scoates 12:53 PM Complications: None scoates 12:53 PM Fluoro Time: 37 scoates 12:54 PM Isovue 370 - 200ml contrast 287 ml given by Bello Lomax MD. scoates 12:54 PM Radiation Dose 3166.64 mGy scoates 12:56 PM Lesion found in Mid RCA. Pre Stenosis: 50 Pre ANGELICA Flow: 3: Complete and Brisk Flow/Perfusion scoates 12:57 PM Lesion found in LMCA. Pre Stenosis: 50 Pre ANGELICA Flow: 3: Complete and Brisk Flow/Perfusion scoates 12:57 PM Left Main Coronary Artery with 50% stenosis scoates 12:57 PM Right Coronary, Right Posterior Descending Arteries with Right Posterolateral and Acute Marginal branches with 50 % stenosis. scoates 01:22 PM Site status Oozing - Rt Groin as reported by Marek Sparrow RN at 13:21 [email or web address] 01:22 PM Pressure held around site for [address]. [address] Lomax scrubbed in to mynx site [facility] 01:24 PM Arterial sheath pulled, Mynx closure device used and was Successful [id number] [facility] 01:30 PM Site status No bleeding/hematoma - Rt Groin as reported by Sites, Rand RT (R) at 13:30 [facility] 01:[address] [facility] Complications Complication None Hemodynamics Pressures Site Systolic/A Wave Diastolic/V Wave Mean AO 121 64 92 AO 152 39 78 LV 139 4 20 LV 141 6 24 AO 154 65 102 AO 141 76 105 AO 150 60 97 AO 126 57 86 AO 148 74 106 AO 141 74 103 AO 149 77 109 AO 152 76 109 AO 164 72 108 Post Procedure Information Blood Pressure: 166/80 mmHg Rhythm: NSR w/ BBB Post procedural instructions were given Site Checks Time Location Status Staff Sheath In? Note 12:48 PM Rt Groin No bleeding/hematoma Sites, Rand RT (R) 01:21 PM Rt Groin Oozing Marek Sparrow RN 01:30 PM Rt Groin No bleeding/hematoma Sites, Rand RT (R) Pulses Time Site Pre-Procedure Post-Procedure Note 07/25/2017 10:57:00 AM Bilateral DP & PT 2+ 07/25/2017 10:57:00 AM Bilateral radial 2+ 07/25/2017 10:57:00 AM Rt Radial Normal plethysmography's Test 12:46:00 PM Bilateral DP & PT 2+ Updated by Sally Norman RN on 07/25/2017 1:30:33 PM electronically signed on 07/25/2017 1:31:08 PM with status of Final
[2017-07-25] MEDS: Insulin LISPRO 300 UNITS/3 ML VIAL SQ SCH ×2 (14:42→16:49)
[2017-07-25] MEDS ORDERED: 0.9 % Sodium Chloride 500 ML IVC ONE (18:29)
--- NOTE | 2017-07-25 18:53 | Event Note ---
Date of Encounter: 07/25/17 Time of Encounter: 18:30 Report by RN pt has hypotension to systolic BP to 50s. IVF was given immediately by RN and BP increased to 80s. I saw and examined pt bedside. Pt is awake, alert, denies chest pain or SOB. On exam, HR 80, RRR, no murmur, S1S2 clear, lungs are clear. No abd tenderness. Pt respond to fluid challenge well and SBP increased to 114 after about 300 ml NS. I will check H/H. I called Cardiology Dr Lomax and discussed the finding with him. He thought pt is dry, instruct to stop NTG (not given yet) and heparin drip, given 500ml bolus and cont with 60ml/hr during night, closely monitor vitals.
[2017-07-25 19:05] LABS: Hematocrit 31.4 % (37.5-50.1); Hemoglobin 10.8 g/dL (12.9-16.9)
[2017-07-25] MEDS: 0.9 % Sodium Chloride 1,000 ML IVC SCH (19:50)
[2017-07-25] MEDS ORDERED: Insulin LISPRO 300 UNITS/3 ML VIAL SQ SCH (21:00)
[2017-07-26] MEDS: 0.9 % Sodium Chloride 1,000 ML IVC SCH (02:38)
[2017-07-26 03:39] LABS: Basophils % 0.3 %; Eosinophils # 0.1 K/mcL (0.0-0.6); Eosinophils % 1.3 %; Hemoglobin 10.1 g/dL (12.9-16.9); Immature Granulocytes % 0.3 % (0-4); Lymphocytes # 1.4 K/mcL (0.6-4.6); Lymphocytes % 23.4 %; Mean Corpuscular HGB Conc 33.7 g/dL (31.6-35.5); Mean Corpuscular Hemoglobin 34.2 pg (28.0-33.3); Mean Corpuscular Volume 101.7 fL (83.0-100.0); Mean Platelet Volume 9.9 fL (9.4-12.4); Monocytes # 0.8 K/mcL (0.0-1.3); Monocytes % 12.7 %; Neutrophils # 3.8 K/mcL (1.6-8.9); Nucleated Red Blood Cells 0.3 /100 WBC (0); Platelet Count 137 K/mcL (140-400); Red Blood Count 2.95 M/mcL (4.19-5.50); Red Cell Distribution Width 13.6 % (11.5-14.5)
[2017-07-26 03:55] LABS: BUN/Creatinine Ratio 21 (6-26); Blood Urea Nitrogen 15 mg/dL (8-26); Calcium 8.8 mg/dL (8.6-10.8); Carbon Dioxide 24 mEq/L (19-29); Chloride 102 mEq/L (98-109); Glucose 109 mg/dL (70-99); Osmolality,Calculated 277 (280-300); Potassium 3.7 mEq/L (3.5-4.5); Sodium 133 mEq/L (136-145); eGFR For African Americans > 60 (> 60); eGFR For Non-African Americans > 60 (> 60)
[2017-07-26] MEDS: Insulin LISPRO 300 UNITS/3 ML VIAL SQ SCH ×3 (08:41→16:01)
[2017-07-26] MEDS: Primidone 50 MG TABLET PO SCH ×2 (08:48→17:07)
[2017-07-26] MEDS ORDERED: Aspirin 81 MG TAB.CHEW PO SCH (09:00)
--- NOTE | 2017-07-26 10:52 | Cardiology Progress Note ---
Date of Encounter: 07/26/17 Time of Encounter: 09:20 Assessment and Plan (1) NSTEMI (non-ST elevated myocardial infarction) Current Visit: Yes Status: Acute Presented with typical chest pain symptoms, troponin 43.15. Ischemic ECG changes. Recent discharge for medically treated small NSTEMI (troponin 0.1), now presented after failed trial of medical therapy. EF preserved, 55% with normal wall motion on 07/24/17. [facility] 07/25/17: unsuccessful PCI of pLAD severe stenosis after multiple attempts. EF 30% Reviewed films with Dr. Rosa today, recommend high risk PCI with rotablade at [facility]. Family not at bedside upon exam, will attempt later. Discussed with patient, he is considering proceeding with high risk PCI. Currently chest pain free upon exam. Due to failed medical therapy, recommend inpatient transfer. Social work following[facility]. Continue asa, statin, betablocker, and plavix. Recommend nitrate, however unable to add at this point due to hypotension. (2) HTN (hypertension) Current Visit: Yes Status: Chronic Continue betablocker. Control improved. Qualifiers: Hypertension type: essential hypertension Qualified Code(s): I10 - Essential (primary) hypertension Discussion w patient/family: The assessment and plan as outlined above was discussed with the patient and/or family members who expressed understanding and agreement. All questions were answered. Thank you for involving us in the care of your patient. Please call with any questions. The patient will be discussed and reviewed with Dr. Sanchez; changes to be made accordingly. Subjective Principal diagnosis: NSTEMI Interval history: Seen and examined earlier this AM. Denies recurrent chest pain since admission. Long discussion this AM regarding plan of care. No issues with cath site. Objective Vital Signs, Last 4 Hours Temp Pulse Resp BP Pulse Ox 07/26/17 08:42 86 95/36 07/26/17 08:15 62 07/26/17 07:50 98.0 F 74 16 117/60 99 07/26/17 07:25 98.1 F 70 17 117/60 98 General: Conversant, No Apparent Distress HEENT: Atraumatic, Normocephaly, Mucus Membranes Moist Cardiac: Reg Rate and Rhythm, Normal S1 and S2 Lungs: Normal Breath Sounds Neuro: Alert and responsive Abdomen: Soft Skin: No rashes noted on visualized skin Musculoskeletal: No Chest Wall Tenderness Extremities: Other (bilateral pre-tibial edema. +1) Results 07/26/17 03:04 07/26/17 03:04 Lab Results 07/25/17 07/26/17 07/26/17 18:58 03:04 03:04 WBC 6.1 Hgb 10.8 L 10.1 L Hct 31.4 L 30.0 L Plt Count 137 L Sodium 133 L Potassium 3.7 Chloride 102 Carbon Dioxide 24 BUN 15 Creatinine 0.73 Glucose 109 H Calcium 8.8 Active Medications Acetaminophen (Tylenol) 650 mg PO Q6HR PRN PRN Reason: Mild Pain (1-3) Stop: 01/23/18 22:22 Aspirin (Aspirin) 81 mg PO DAILY [facility] Stop: 01/25/18 09:01 Last Admin: 07/26/17 08:49 Dose: 81 mg Atorvastatin Calcium (Lipitor) 80 mg PO HS [facility] Stop: 01/24/18 21:01 Last Admin: 07/25/17 19:49 Dose: 80 mg Carvedilol (Coreg) 6.25 mg PO BIDWM [facility] PRN Reason: Protocol Stop: 01/24/18 17:01 Last Admin: 07/26/17 11:55 Dose: 6.25 mg Clonazepam (Klonopin) 0.5 mg PO HS [facility] Stop: 01/23/18 23:16 Last Admin: 07/25/17 19:48 Dose: 0.5 mg Clopidogrel Bisulfate (Plavix) 75 mg PO DAILY [facility] Stop: 01/24/18 09:01 Last Admin: 07/26/17 08:48 Dose: 75 mg Dextrose (Dextrose 5%) 1,000 mls @ 100 mls/hr IVC .Q10H PRN PRN Reason: HYPOGLYCEMIA Stop: 01/24/18 10:58 Indapamide (Lozol) 2.5 mg PO DAILY [facility] Stop: 01/24/18 09:01 Last Admin: 07/26/17 11:55 Dose: 2.5 mg Insulin Human Lispro (Humalog) 0 units SQ HS [facility] PRN Reason: Protocol Stop: 01/24/18 21:01 Last Admin: 07/25/17 20:44 Dose: Not Given Insulin Human Lispro (Humalog) 0 units SQ TIDAC [facility] PRN Reason: Protocol Stop: 01/24/18 11:31 Last Admin: 07/26/17 11:55 Dose: 2 units Naloxone HCl (Narcan) 0.4 mg IVP Q2MIN PRN PRN Reason: Opioid Reversal Stop: 01/23/18 22:22 Nitroglycerin (Nitroglycerin) 0.4 mg SL Q5MIN PRN PRN Reason: Chest Pain Stop: 01/23/18 20:11 Last Admin: 07/24/17 20:42 Dose: 0.4 mg Primidone (Mysoline) 50 mg PO Q8HR PRANAY Stop: 01/24/18 00:01 Last Admin: 07/26/17 08:48 Dose: 50 mg Tamsulosin HCl (Flomax) 0.4 mg PO HS PRANAY PRN Reason: Protocol Stop: 01/24/18 21:01 Last Admin: 07/25/17 19:49 Dose: 0.4 mg - Imaging and Cardiology Echo: report reviewed Cardiac cath: report reviewed Other Results: 12 hour tele: avg HR=76 SR. PVCs/PACs noted, occasionally - EKG Interpretation EKG results cardiology: personally reviewed Consult Discharge Plan - Plan Referrals: Bernardino Rosa MD [Partnered Physician] - (Cardiology needs prior auth. for this patient to see them. they will call patient at home with follow up appointment) [facility] - 08/03/17 8:45 am
[2017-07-26 15:03] VITALS: BP 120/40
--- NOTE | 2017-07-26 16:26 | Discharge Summary ---
Date of Encounter: 07/26/17 Time of Encounter: 16:00 - Discharge Diagnosis (1) NSTEMI (non-ST elevated myocardial infarction) Priority: Primary Status: Acute (2) Diabetes mellitus Priority: Secondary Status: Acute Qualifiers: Diabetes mellitus type: type 2 Diabetes mellitus complication status: with unspecified complications Diabetes mellitus long term care phlebotomist insulin use: without mcfp use Qualified Code(s): E11.8 - Type 2 diabetes mellitus with unspecified complications (3) HTN (hypertension) Priority: Secondary Status: Chronic Qualifiers: Hypertension type: essential hypertension Qualified Code(s): I10 - Essential (primary) hypertension (4) Benign essential tremor Priority: Secondary Status: Acute (5) DVT prophylaxis Priority: Secondary Status: Acute - Discharge Medications Home Medications: Acetaminophen [Tylenol] 650 mg PO Q6HR PRN 07/22/17 [History] Aspirin Enteric Coated [Aspirin EC] 81 mg PO DAILY 07/22/17 [History] Atorvastatin Calcium [Lipitor] 80 mg PO HS 07/22/17 [History] Indapamide [Lozol] 2.5 mg PO DAILY 07/22/17 [History] Lactose-Reduced Food [Ensure Plus] 237 ml PO DAILY 07/22/17 [History] Meclizine HCl [Verticalm] 25 mg PO TID PRN 07/22/17 [History] Multivitamin [Multi-Day Vitamins] 1 tab PO DAILY 07/22/17 [History] Potassium Chloride [K-Tab ER] 20 meq PO DAILY 07/22/17 [History] Primidone [Mysoline] 50 mg PO Q8HR 07/22/17 [History] Tamsulosin [Flomax] 0.4 mg PO HS 07/22/17 [History] clonazePAM [Klonopin] 0.5 mg PO HS 07/22/17 [History] hydrOXYzine pamoate [HydrOXYzine Pamoate] 25 mg PO DAILY PRN 07/22/17 [History] Clopidogrel [Plavix] 75 mg PO DAILY #30 tab 07/24/17 [Rx] Nitroglycerin 0.4 mg SL Q5-10MIN PRN #30 tab.subl 07/24/17 [Rx] Carvedilol [Coreg] 6.25 mg PO BIDWM tab 07/26/17 [Rx] Allergies/Adverse Reactions: 3 Allergy/AdvReac Type Severity Reaction Status Date / Time gabapentin AdvReac See Verified 07/22/17 19:07 Comments Procedures/tests Complete & Pending: Procedures Performed prior 72 hours Category Date Time Status CL Cardiac Catheterization [CL] Timed General Manager In Training 07/25/17 09:00 Completed Date of admission: 07/24/17 22:29 Primary care physician: PCP JOSE Consults: 07/24/17 23:27 Consult to Nutrition [CONS] Routine Comment: Consulting Provider: NUTRITION Reason for Dietary Consult: MST Score 07/25/17 08:57 Consult to Cardiac Rehabilitation-Phase1 [CONS] Routine Comment: Reason for Consult: NSTEMI Call Completed: No 07/26/17 09:53 Consult to Occupational Therapy [CONS] Routine Comment: Evaluate, develop and implement POC Reason for Consult: DC PLANNING Consult to Physical Therapy [CONS] Routine Comment: Evaluate, develop and implement POC Reason for Consult: DC PLANNING Discharging clinician: Senthil Goddard Anticipated date of discharge: 07/26/17 - Patient Status Disposition: Transfer Critical Access Hosp Condition: Fair Functional capacity at discharge: bed bound Overall status at discharge: patient is not back to baseline - Discharge Instructions Follow Up With: Bernardino Rosa MD [Partnered Physician] - (Cardiology needs prior auth. for this patient to see them. they will call patient at home with follow up appointment) JOSE,PCP [Primary Care Provider] - 08/03/17 8:45 am - Diet and Activity Activity: as per physical therapy Diet: diabetic diet, low salt diet Interval History: HPI: Mr. Lopez is a 86 year old male past history of coronary disease diabetes recent history of NSTEMI this week. He was admitted to the hospital and discharged earlier today at approximately noon. During his admission he was seen by cardiology he did have a NSTEMI according to records catheterization was not completed secondary to patient's age the patient was currently pain- free. Apparently After discharge he was not able to [facility] At approximately 1500 he began to experience sharp midsternal nonradiating chest pain that lasted approximately 10 minutes and relieved on its own. The pain was triggered while he was ambulating. Several hours later he a blade to the bathroom he had midsternal sharp pain that radiated to his jaw 8 out of 10 and was constant there were no relieving factors he became diaphoretic. He called EMS and was transported to the ER for evaluation. According to ER records were today revealed elevated troponin 0.14 which was elevated from previous troponin EKG with no changes from previous old left bundle branch block. He was given nitroglycerin 3 which did relieve his pain. As well as Toprol 5 mg IVP and was initiated on heparin drip. Cardiology was consulted who advised presently patient pain-free however if pain returns to consult hydrator operator. He has been admitted for further workup and evaluation. Presently patient is pain-free he denies any shortness of breath. His lung sounds are clear heart sounds are regular S1 and S2 with no rubs clicks, murmurs noted abdomen soft nontender no pedal edema. We did discuss CODE STATUS at this time he would like to discuss it with his family. Hospital course: Mr. Lopez is a 86 year old male admitted for chest pain with elevated troponin. He was considered NSTEMI and was placed on heparin and NTG drip. Cardiology consult was called. 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 No intervention. Patient is pain-free now. Cardiology reviewed the [facility] imaging, consider patient has high risk PCI, recommend to transfer patient to high-level hospital for further management. Patient and the family agreed to transfer to [facility]. I called [facility], and accept the patient. I saw and examined patient today. He is awake alert, oriented 3. Denies chest pain or shortness of breath. Eat well. Off HEPARIN and NTG drip now per cardiology. Vitals are stable. Patient will be placed on continuous cardiac monitoring and transferred to [facility]. - Time Spent with Patient Total time spent providing and/or coordinating discharge services: 40 min Greater than 30 minutes - Constitutional Vitals: Temp Pulse Resp BP Pulse Ox 97.8 F 77 16 120/40 96 07/26/17 15:00 07/26/17 15:00 07/26/17 15:00 07/26/17 15:00 07/26/17 15:00 General appearance: Present: cooperative, A&O X 3, pleasant, no acute distress - Head Head exam: Present: atraumatic, normocephalic - Eye Eye exam: Present: PERRL, conjuntiva pink, sclera anicteric Pupils: Present: PERRL - Neck Neck exam general surgery: Present: supple, trachea midline. Absent: lymphadenopathy - Respiratory Respiratory exam: Present: CTAB. Absent: accessory muscle use, rales, rhonchi, wheezes - Cardiovascular Cardiovascular exam: Present: RRR, +S1, +S2. Absent: diastolic murmur, gallop, rubs, systolic murmur - GI/Abdominal GI/Abdominal exam: Present: normal bowel sounds, soft, no peritoneal signs. Absent: distended, tenderness - Extremities Exam Extremities exam: Present: warm, radial pulses palpable and symmetrical. Absent : calf tenderness, cyanotic, pedal edema - Neurological Exam Neurological exam: Present: CN II-XII intact, oriented X3, no focal deficits. Absent: pronater drift, facial droop, speech deficit - Skin Skin exam: Present: dry, intact
--- NOTE | 2017-07-26 21:49 | Electrocardiograph Report ---
[address] [address] Test Date: 2017-07-24 Pat Name: Philip Lopez Department: 105 Room: 2N01 Gender: M Land Lease Information Clerk: LUIZ : 1930 Requested By: Brian Meehan Order Number: [id number] Reading MD: Bernardino Rosa MD Measurements Intervals [place] Rate: 105 P: 63 OK: 184 QRS: -47 QRSD: 120 T: 101 QT: 348 QTc: 409 Interpretive Statements SINUS TACHYCARDIA WITH OCCASIONAL VENTRICULAR PREMATURE COMPLEXES MARKED LEFT AXIS DEVIATION LEFT BUNDLE BRANCH BLOCK Poor R wave progression Electronically Signed On 07-26-2017 21:48:03 EDT by Bernardino Rosa MD
--- NOTE | 2017-07-29 08:08 | Electrocardiograph Report ---
[address] [address] Test Date: 2017-07-25 Pat Name: Philip Lopez Department: 112 Room: 2N01 Gender: M Oil Pit Attendant: : 1930 Requested By: Tomi Bell Order Number: [id number] Reading MD: Bernardino Rosa MD Measurements Intervals [place] Rate: 83 P: 56 [place]: 193 QRS: -51 QRSD: 120 T: 93 QT: 408 QTc: 447 Interpretive Statements SINUS RHYTHM WITH OCCASIONAL VENTRICULAR PREMATURE COMPLEXES Poor R wave progression MARKED LEFT AXIS DEVIATION LEFT BUNDLE BRANCH BLOCK Electronically Signed On 07-29-2017 6:23:12 EDT by Bernardino Rosa MD
== END 2017-07-26 18:17 | disposition critical access hospital (66) | DRG 282 ==
LOC: EMEROO 19:32 → 2ANU 22:29 → 2NNU 07-25 13:16
PROVIDERS: ADMIT Internal Medicine; ATTEND Internal Medicine

== ENCOUNTER 2018-01-24 13:47 | Observation (INO) ==
[2018-01-24] MEDS ORDERED: Ipratropium/Albuterol Neb 3 ML IH ONE (14:58)
[2018-01-24] MEDS ORDERED: Ipratropium/Albuterol Neb 3 ML ONE (15:00)
--- NOTE | 2018-01-24 15:18 | Emergency Department Note ---
Disposition Clinical Impression: Elevated troponin I level Upper respiratory infection Qualifiers: URI type: unspecified viral URI Qualified Code(s): J06.9 - Acute upper respiratory infection, unspecified Disposition: Admitted As Inpatient Condition: Good [facility] - Forms: ED Satisfaction Letter General Adult HPI - General Chief complaint: ED Upper Respiratory Infection Stated complaint: productive cough Source: patient, EMS Mode of arrival: EMS Limitations: no limitations Nursing Notes Reviewed: Yes Vital Signs Reviewed: Yes - History of Present Illness HPI Narrative: Mr. Philip Lopez is an 87 year old male with past medial history of recent [place] Jul 2017 with stenting x2 on plavix and ASA. He presents with 12 days of productive cough, 1 episode of non-bilious/non-bloody vomit, and mild fatigue. He denies chest pain, shortness of breath, diarrhea, abdominal pain, or leg swelling/pain. He has been taking his DAPT. He lives at [facility], they gave him a full course of z-pack which ended 01/16. He reports ambulating similar to baseline, uses a walker, has no reduced appetite. Onset (ago): day(s) (12 days) Pain Severity: mild Pain Scale: 0 Improves with: rest Worsens with: nothing Associated symptoms: Reports: cough, weakness. Denies: confusion, chest pain, fever/chills, loss of appetite, shortness of breath - Related Data Home Medications Medication Instructions Recorded Confirmed Acetaminophen [Tylenol] 650 mg PO Q6HR PRN 07/22/17 09/01/17 Aspirin Enteric Coated [Aspirin EC] 81 mg PO DAILY 07/22/17 09/01/17 Atorvastatin Calcium [Lipitor] 80 mg PO HS 07/22/17 09/01/17 Lactose-Reduced Food [Ensure Plus] 237 ml PO DAILY 07/22/17 09/01/17 Meclizine HCl [Verticalm] 25 mg PO TID PRN 07/22/17 09/01/17 Multivitamin [Multi-Day Vitamins] 1 tab PO DAILY 07/22/17 09/01/17 Primidone [Mysoline] 50 mg PO Q8HR 07/22/17 09/01/17 Tamsulosin [Flomax] 0.4 mg PO HS 07/22/17 09/01/17 clonazePAM [Klonopin] 0.5 mg PO HS 07/22/17 09/01/17 hydrOXYzine pamoate [HydrOXYzine 25 mg PO DAILY PRN 07/22/17 09/01/17 Pamoate] Allopurinol [Zyloprim 100 MG] 100 mg PO DAILY 09/01/17 09/01/17 Bisacodyl [Woman's Laxative] 5 mg PO DAILY PRN 09/01/17 09/01/17 Colchicine [Colcrys] 0.6 mg PO DAILY 09/01/17 09/01/17 Docusate [Colace] 100 mg PO BID 09/01/17 09/01/17 Furosemide [Lasix] 20 mg PO DAILY 09/01/17 09/01/17 Lisinopril 2.5 mg PO DAILY 09/01/17 09/01/17 Propranolol [Inderal] 40 mg PO BID 09/01/17 09/01/17 Previous Rx's Medication Instructions Recorded Clopidogrel [Plavix] 75 mg PO DAILY #30 tab 07/24/17 Nitroglycerin 0.4 mg SL Q5-10MIN PRN #30 tab.subl 07/24/17 Allergies Allergy/AdvReac Type Severity Reaction Status Date / Time gabapentin AdvReac See Verified 07/22/17 19:07 Comments Constitutional: Denies: fever, chills Eyes: Denies: vision change ENT ED: Denies: congestion Cardiovascular: Denies: chest pain, palpitations Respiratory: Reports: cough, sputum production. Denies: wheezes Gastrointestinal: Reports: vomiting (x1 in 12 days). Denies: abdominal pain, nausea, diarrhea Musculoskeletal: Denies: neck pain Neurological: Denies: headache Past Medical History - Past Medical History Medical history: Reports: arthritis, asthma, cardiomyopathy, CHF, coronary artery disease, CVA, GI bleed, glaucoma, hyperlipidemia, hypertension, kidney stones, myocardial infarction, osteoporosis Surgical history: Reports: herniorrhaphy (bilateral inguinal) Psychiatric history: Reports: no psych history - Social History Smoking Status: Former smoker Smokeless Tobacco Status: No Alcohol use: Reports: none Drug use: Reports: none Physical Exam - General Limitations: no limitations General appearance: alert, in no apparent distress - Head Head exam: atraumatic, normocephalic - Eye Eye exam: Present: EOMI - ENT ENT exam: mucous membranes moist - Neck Neck exam: Present: full ROM - Chest Chest inspection: Present: symmetric chest wall rise - Respiratory Respiratory exam: Present: normal lung sounds bilaterally. Absent: respiratory distress, wheezes, stridor - Cardiovascular Cardiovascular exam: Present: regular rate, normal rhythm. Absent: systolic murmur, diastolic murmur, rubs, gallop Course Course Narrative: Patient given duoneb in ED, he continues to saturate well. We are ordering basic labs, CXR has come back negative for acute cardiopulmonary process. Troponin x1 0.04. ECG shows no st elevation or depression. Pt has been compliant with DAPT for 2 stents placed Jul 2017. Giving solu-medrol 125mg, patient continues to deny difficulty breathing, however he has wheeze, mild crackles. Spoke to hospitalist who agrees to admit for observation of elevated troponin and course of URI symptoms. Vital Signs Temperature 98.5 F 01/24/18 13:49 Pulse Rate 62 01/24/18 13:49 Respiratory Rate 16 01/24/18 13:49 Blood Pressure 161/73 01/24/18 13:49 O2 Sat by Pulse Oximetry 94 01/24/18 13:49 Temperature 98.5 F 01/24/18 13:49 Pulse Rate 101 01/24/18 14:45 Respiratory Rate 16 01/24/18 15:05 Blood Pressure 96/62 01/24/18 14:45 O2 Sat by Pulse Oximetry 94 01/24/18 15:05 Oxygen Delivery Oxygen Delivery Room Air Medical Decision Making - Medical Records Medical records reviewed: Yes I reviewed the patient's medical records. - Lab Data Lab results reviewed: Yes I reviewed the patient's lab results. Result diagrams: 01/24/18 14:51 01/24/18 14:51 Lab Results 01/24/18 01/24/18 01/24/18 Range/Units 14:51 14:51 14:51 WBC 5.8 (4.3-11.1) K/mcL RBC 3.15 L (4.19-5.50) M/mcL Hgb 10.9 L (12.9-16.9) g/dL Hct 32.6 L (37.5-50.1) % MCV 103.5 H (83.0-100.0) fL MCH 34.6 H (28.0-33.3) pg MCHC 33.4 (31.6-35.5) g/dL RDW 13.8 (11.5-14.5) % Plt Count 168 (140-400) K/mcL MPV 9.8 (9.4-12.4) fL Immature Gran % 0.2 (0-4) % Seg Neutrophils % 62.9 % Lymphocytes % 26.2 % Monocytes % 8.8 % Eosinophils % 1.7 % Basophils % 0.2 % Neutrophils # 3.7 (1.6-8.9) K/mcL Lymphocytes # 1.5 (0.6-4.6) K/mcL Monocytes # 0.5 (0.0-1.3) K/mcL Eosinophils # 0.1 (0.0-0.6) K/mcL Basophils # 0.0 (0.0-0.2) K/mcL Sodium 142 (136-145) mEq/L Potassium 3.9 (3.5-5.1) mEq/L Chloride 108 H (98-107) mEq/L Carbon Dioxide 27 (23-29) mEq/L BUN 13 (8-23) mg/dL Creatinine 0.75 (0.70-1.30) mg/dL Est GFR ( Amer) > 60 (> 60) Est GFR (Non-Af Amer) > 60 (> 60) BUN/Creatinine Ratio 17 (6-26) Glucose 143 H (70-105) mg/dL Calculated Osmolality 297 (280-300) Calcium 9.0 (8.6-10.3) mg/dL Troponin I 0.04 H* (< 0.04) ng/mL - Radiology Data Radiology results reviewed: Yes I reviewed the patient's radiology results. Chest X-Ray 01/24/18 14:16 IMPRESSION: COPD with no acute abnormality. D/ / Jefe Meyer MD / Jefe Meyer MD Interpreting Provider: Jefe Meyer MD
[2018-01-24 15:26] LABS: Basophils % 0.2 %; Eosinophils # 0.1 K/mcL (0.0-0.6); Eosinophils % 1.7 %; Hematocrit 32.6 % (37.5-50.1); Hemoglobin 10.9 g/dL (12.9-16.9); Immature Granulocytes % 0.2 % (0-4); Lymphocytes # 1.5 K/mcL (0.6-4.6); Lymphocytes % 26.2 %; Mean Corpuscular HGB Conc 33.4 g/dL (31.6-35.5); Mean Corpuscular Hemoglobin 34.6 pg (28.0-33.3); Mean Corpuscular Volume 103.5 fL (83.0-100.0); Mean Platelet Volume 9.8 fL (9.4-12.4); Monocytes # 0.5 K/mcL (0.0-1.3); Monocytes % 8.8 %; Neutrophils # 3.7 K/mcL (1.6-8.9); Platelet Count 168 K/mcL (140-400); Red Blood Count 3.15 M/mcL (4.19-5.50); Red Cell Distribution Width 13.8 % (11.5-14.5); Segmented Neutrophils % 62.9 %
[2018-01-24 15:44] LABS: BUN/Creatinine Ratio 17 (6-26); Blood Urea Nitrogen 13 mg/dL (8-23); Carbon Dioxide 27 mEq/L (23-29); Chloride 108 mEq/L (98-107); Glucose 143 mg/dL (70-105); Osmolality,Calculated 297 (280-300); Potassium 3.9 mEq/L (3.5-5.1); Sodium 142 mEq/L (136-145); eGFR For African Americans > 60 (> 60); eGFR For Non-African Americans > 60 (> 60)
[2018-01-24] MEDS ORDERED: methylPREDNISolone 125 MG/2 ML VIAL IVP ONE (16:09)
--- NOTE | 2018-01-24 16:11 | Emergency Department Note ---
START Narrative - START START: I examined this patient and my medical decision-making was reviewed with the Resident Physician. I agree with the documented findings, disposition and treatment plan as described except to the extent set forth below. 87-year-old male presents emergency room for cough. Increasing cough for the past 12 days. Had been on antibiotics and states he just finished them on Wednesday. States he is getting worse. No documented fevers. No chest pain. Workup in the ER reveals a borderline troponin. Chest x-ray was negative. No signs of any pneumonia. More consistent with COPD. Patient will need to be admitted for observation due to this troponin issue and his history. Pulmonary treatments, steroids.
[2018-01-24] MEDS ORDERED: Acetaminophen 325 MG TABLET PO PRN (19:47)
[2018-01-24] MEDS ORDERED: Naloxone 0.4 MG/ML INJ IVP PRN (19:47)
[2018-01-24] MEDS ORDERED: Carbamide Peroxide 150 DROP/15 ML BOTTLE BOTH EARS PRN (20:35)
[2018-01-24] MEDS ORDERED: Nitroglycerin 0.4 MG TAB.SUBL SL PRN (20:35)
[2018-01-24] MEDS ORDERED: levoFLOXacin 750 MG TABLET PO SCH (21:15)
--- NOTE | 2018-01-24 22:05 | Internal Med History&Physical ---
<Kurt Alvarez - Last Filed: 01/24/18 23:23> Date of Encounter: 01/24/18 Time of Encounter: 18:00 Assessment and Plan (1) Upper respiratory infection Current visit: Yes Status: Acute Unresolved URI complicated by current COPD exacerbation. Pt. reports taking azithromycin at [facility] and finishing abx on 01/16/18. Sx worsened. Respiratory infection panel ordered stat. Sputum culture ordered. Blood cultures x2. Supplemental O2 w/titration and SpO2 monitoring. DuoNeb s Q4 scheduled. Mucinex for cough. PO Levaquin 750 mg daily ordered for infection coverage d/t pt. being able to be discharged on PO levaquin when appropriate if C&S shows sensitivity. Monitor pt. and f/u labs. Pt. discussed w/Dr. Maldonado who agrees w/ plan of care. Pt. is high risk for further morbidity based on failed OP abx therapy for URI previously, current sx, ongoing productive cough w/colored sputum, elevated troponin, hx, and risk factors. Observation. Qualifiers: URI type: unspecified viral URI Qualified Code(s): J06.9 - Acute upper respiratory infection, unspecified (2) Shortness of breath Current visit: Yes Status: Acute Acute SOB/dyspnea from unresolved URI/COPD exacerbation. Supplemental O2 w/ titration and SpO2 monitoring. DuoNebs Q4 scheduled. Mucinex for cough. (3) Cough Current visit: Yes Status: Acute Acute cough from URI for past 12 days. Pt. reports color ranges from yellow to brown. Sputum culture ordered. Supplemental O2 with titration and SPO2 monitoring. Mucinex for cough. (4) Elevated troponin I level Current visit: Yes Status: Acute Acutely elevated troponin level of 0.04 on admission. Second troponin 0.04. Will continue to trend. Pt. denies CP. Most likely demand ischemia d/t current COPD exacerbation, SOB/dyspnea, and URI. Echocardiogram ordered. Continuous cardiac telemetry. Consider cardiology consult if troponin rises or pt. develops CP. (5) COPD (chronic obstructive pulmonary disease) Current visit: Yes Status: Chronic Hx of chronic COPD w/current mild exacerbation. Wheezes present bilaterally in all lobes on auscultation. Predisone PO 40 mg daily. Supplemental O2 w/ titration and SpO2 monitoring. DuoNebs Q4 scheduled. Qualifiers: COPD type: unspecified COPD Qualified Code(s): J44.9 - Chronic obstructive pulmonary disease, unspecified (6) CHF (congestive heart failure) Current visit: Yes Status: Chronic Hx of chronic CHF. Stable w/o fluid overload currently. Echocardiogram ordered. Continuous cardiac telemetry. Continue pts. lasix. Qualifiers: Heart failure type: diastolic Heart failure chronicity: chronic Qualified Code(s): I50.32 - Chronic diastolic (congestive) heart failure (7) CAD (coronary artery disease) Current visit: Yes Status: Chronic Hx of chronic CAD w/[place] in 07/2017 and stents x2. Continuous cardiac telemetry. Continue aspirin, Lasix, Lipitor, Plavix, lisinopril, and Inderal. Qualifiers: Coronary Disease-Associated Artery/Lesion type: [place] artery [place] vs. transplanted heart: [place] heart Associated angina: angina presence unspecified Qualified Code(s): I25.10 - Atherosclerotic heart disease of [place] coronary artery without angina pectoris (8) HTN (hypertension) Current visit: Yes Status: Chronic Hx of chronic HTN. Monitor pt. and VS. Continue patient's lisinopril and Inderal. Qualifiers: Hypertension type: essential hypertension Qualified Code(s): I10 - Essential (primary) hypertension (9) HLD (hyperlipidemia) Current visit: Yes Status: Chronic Hx of chronic HLD. Lipid panel in a.m. labs. Continue pts. Lipitor. Qualifiers: Hyperlipidemia type: pure hypercholesterolemia Qualified Code(s): E78.00 - Pure hypercholesterolemia, unspecified; E78.0 - Pure hypercholesterolemia (10) Unsteadiness on feet Current visit: Yes Status: Chronic Hx of unsteadiness on his feet. Falls/safety precautions, up with assist, bed rest w/bathroom privileges w/assist only. PT/OT consults ordered to assess pts. ambulation. (11) DVT prophylaxis Current visit: Yes Status: Acute Bilateral SCDs on LEs d/t pts. hx of GI bleeding. Internal Medicine - H&P: HPI Chief complaint: URI/Cough Admitted From: Emergency Dept Plans for Post Hospital Care: Home History of present illness: Mr. Lopez is a 87 year old male w/PMH of arthritis, asthma, cardiomyopathy, CHF, CAD, CVA, GI bleed, glaucoma, hyperlipidemia, hypertension, kidney stones, previous myocardial infarction in July 2017, and osteoporosis results from ED with chief complaint of URI symptoms and cough for the past 12 days. Pt. states his sputum color ranges from yellow to brown. Completed azithromycin on for URI but sx have worsened. Pt. reports SOB, cough, and unsteadiness on his feet but denies fever, chills, nausea, vomiting, chest pain, changes in vision, headache, chest pain, palpitations, abdominal pain, diarrhea, constipation, dizziness, lightheadedness, pre-syncope, or syncope. Past Med Surg Social Fam HX - Past Medical History Source: patient, old records reviewed, obtained from family Medical history: arthritis, asthma, cardiomyopathy, CHF, coronary artery disease , CVA, GI bleed, glaucoma, hyperlipidemia, hypertension, kidney stones, myocardial infarction (2017), osteoporosis Psychiatric history: no psych history - Past Surgical History Surgical History: herniorrhaphy - Social History Smoking Status: Former smoker Smokeless Tobacco Status: No Alcohol use: none Drug use: none Current living situation: Assisted Living Activity Level: Uses cane/walker Recent Out of Country Travel Within the Last 8 Weeks: No Exposure or Possible Exposure to Illness During Travel: No - Family History Brother Race: Family Member Ethnicity: Non- Living Status: Age at : 70 Cause of : CVA Hx Family Cardiac Disorders: Yes ([place]) Sister Race: Family Member Ethnicity: Non- Living Status: Age at : 49 Cause of : Bone cancer Hx Family Cancer: Yes (Bone) Father Race: Family Member Ethnicity: Non- Living Status: Age at : 85 Cause of : Pneumonia from hip fx Hx Family Respiratory Disorders: Yes (Pneumonia) Hx Family Musculoskeletal Disorders: Yes (Hip fx) Mother Race: Family Member Ethnicity: Non- Living Status: Age at : 38 Cause of : in childbirth Internal Medicine - H&P: Meds Aspirin Enteric Coated [Aspirin EC] 81 mg PO DAILY 07/22/17 [History] Atorvastatin Calcium [Lipitor] 80 mg PO HS 07/22/17 [History] Meclizine HCl [Verticalm] 25 mg PO TID PRN 07/22/17 [History] Multivitamin [Multi-Day Vitamins] 1 tab PO DAILY 07/22/17 [History] Primidone [Mysoline] 100 mg PO QAM 07/22/17 [History] Tamsulosin [Flomax] 0.4 mg PO HS 07/22/17 [History] Clopidogrel [Plavix] 75 mg PO DAILY #30 tab 07/24/17 [Rx] Allopurinol [Zyloprim 100 MG] 100 mg PO DAILY 09/01/17 [History] Docusate [Colace] 100 mg PO BID 09/01/17 [History] Furosemide [Lasix] 20 mg PO DAILY 09/01/17 [History] Lisinopril 5 mg PO DAILY 09/01/17 [History] Propranolol [Inderal] 40 mg PO BID 09/01/17 [History] Carbamide Peroxide [Ear Drops] 2 drop OT Q24H PRN 01/24/18 [History] Nitroglycerin 0.4 mg SL Q5M PRN 01/24/18 [History] Primidone [Mysoline] 50 mg PO BID 01/24/18 [History] 3 Allergy/AdvReac Type Severity Reaction Status Date / Time gabapentin AdvReac See Verified 07/22/17 19:07 Comments All Systems PM: A 10-system review of systems was performed and is negative for pertinent findings except as documented above in the HPI. - Constitutional Constitutional: as per HPI, other (Unsteadiness on his feet), no chills, no fever(s), no night sweats - EENT Eyes: no change in vision, no discharge, no pain, no photophobia Ears: no ear discharge, no ear pain, no tinnitus Nose, mouth and throat: no dysphagia, no nasal discharge, no neck pain, no sore throat - Breasts Breasts: as per HPI - Cardiovascular Cardiovascular ROS IM: as per HPI, dyspnea, dyspnea on exertion, no chest pain, no diaphoresis, no lightheadedness, no palpitations, no syncope - Respiratory Respiratory: as per HPI, cough, dyspnea, dyspnea on exertion, wheezing, change in phlegm color, no excessive phlegm production - Gastrointestinal Gastrointestinal: no abdominal pain, no diarrhea, no hematemesis, no hematochezia, no melena, no nausea, no vomiting - Genitourinary Genitourinary ROS male: as per HPI - Musculoskeletal Musculoskeletal ROS IM: as per HPI, no numbness, no tingling - Integumentary Integumentary IM: no rash, no unusual bruising - Neurological Neurological ROS: as per HPI, other (Unsteadiness on his feet), no confusion, no convulsions, no focal weakness, no numbness, no tingling, no tremor(s) - Psychiatric Psychiatric: as per HPI - Endocrine Endocrine IM: as per HPI - Hematologic/Lymphatic Hematologic/Lymphatic: no easy bruising - Allergic/Immunologic Allergic/Immunologic: as per HPI - Constitutional Vitals: Temp Pulse Resp BP Pulse Ox 98.4 F 76 16 164/82 94 01/24/18 19:18 01/24/18 19:18 01/24/18 19:18 01/24/18 19:18 01/24/18 19:18 General appearance: Present: cooperative, A&O X 3, pleasant, no acute distress, answers questions appropriately - Head Head exam: Present: atraumatic, normocephalic - Eye Eye exam: Present: PERRL, conjuntiva pink, sclera anicteric Pupils: Present: PERRL - ENT ENT exam: Present: normal exam - Neck Neck exam general surgery: Present: normal inspection, supple, trachea midline. Absent: lymphadenopathy - Respiratory Respiratory exam: Present: decreased breath sounds, wheezes. Absent: accessory muscle use, rales, rhonchi - Cardiovascular Cardiovascular exam: Present: irregular rhythm. Absent: diastolic murmur, gallop, rubs, systolic murmur - GI/Abdominal GI/Abdominal exam: Present: normal bowel sounds, soft, no peritoneal signs. Absent: distended, tenderness - Rectal Rectal exam: Present: deferred - Additional comments: exam deferred. - Extremities Exam Extremities exam: Present: warm, radial pulses palpable and symmetrical. Absent : calf tenderness, cyanotic, pedal edema - Back Exam Back exam: Present: normal inspection - Neurological Exam Neurological exam: Present: CN II-XII intact, oriented X3, no focal deficits. Absent: pronater drift, facial droop, speech deficit - Psychiatric Psychiatric exam: Present: normal affect, normal mood - Skin Skin exam: Present: dry, intact Internal Med - H&P Results - Labs CBC & Chem 7: 01/24/18 14:51 01/24/18 14:51 Labs: Cardiac Enzymes 01/24/18 Range/Units 20:56 Troponin I 0.04 H* (< 0.04) ng/mL - Diagnostic Studies Chest x-ray Additional comments: Impressions Chest X-Ray 01/24/18 14:16 IMPRESSION: COPD with no acute abnormality. D/ / Jefe Meyer MD / Jefe Meyer MD Interpreting Provider: Jefe Meyer MD <EricaBasiliobrett - Last Filed: 01/25/18 01:14> Date of Encounter: 01/25/18 Internal Medicine - H&P: HPI History of present illness: Mr. Lopez is a 87 year old male All Systems PM: A 10-system review of systems was performed and is negative for pertinent findings except as documented above in the HPI. - Constitutional Vitals: Temp Pulse Resp BP Pulse Ox 97.9 F 63 16 153/70 92 01/24/18 23:28 01/24/18 23:28 01/24/18 23:39 01/24/18 23:28 01/24/18 23:39 Internal Med - H&P Results - Labs CBC & Chem 7: 01/24/18 14:51 01/24/18 14:51 Labs: Cardiac Enzymes 01/24/18 Range/Units 20:56 Troponin I 0.04 H* (< 0.04) ng/mL - Attending Attestation Patient is seen and examined independently, discussed this case with physician collections assistant Ish. I agree with H&P.
[2018-01-24] MEDS: levoFLOXacin 750 MG TABLET PO SCH (22:39)
[2018-01-24] MEDS: Primidone 50 MG TABLET PO SCH (22:40)
[2018-01-24] MEDS: predniSONE 20 MG TABLET PO SCH (22:43)
[2018-01-24] MEDS: Ipratropium/Albuterol Neb 3 ML IH SCH (23:39)
[2018-01-25 02:36] LABS: Adenovirus Not Detected (Not Detect); Bordetella Pertussis Not Detected (Not Detect); Chlamydophila pneumoniae Not Detected (Not Detect); Coronavirus 229E Not Detected (Not Detect); Coronavirus HKU1 Not Detected (Not Detect); Coronavirus NL63 Not Detected (Not Detect); Coronavirus OC43 Not Detected (Not Detect); Human Metapneumovirus Not Detected (Not Detect); Human Rhinovirus/Enterovirus Not Detected (Not Detect); Influenza A Subtype 2009 H1 Not Detected (Not Detect); Influenza A Untypeable Not Detected (Not Detect); Influenza B Not Detected (Not Detect); Mycoplasma pneumoniae Not Detected (Not Detect); Parainfluenza Virus 1 Not Detected (Not Detect); Parainfluenza Virus 2 Not Detected (Not Detect); Parainfluenza Virus 3 Not Detected (Not Detect); Parainfluenza Virus 4 Not Detected (Not Detect); Respiratory Syncytial Virus Not Detected (Not Detect)
[2018-01-25 03:22] LABS: Alanine Aminotransferase 18 Units/L (7-52); Albumin 3.3 g/dL (3.5-5.7); Albumin/Globulin Ratio 0.9 (1.1-2.2); Alkaline Phosphatase 65 Units/L (34-104); Aspartate Amino Transferase 24 Units/L (13-39); BUN/Creatinine Ratio 25 (6-26); Bilirubin,Total 0.5 mg/dL (0.3-1.0); Blood Urea Nitrogen 16 mg/dL (8-23); Calcium 8.9 mg/dL (8.6-10.3); Carbon Dioxide 25 mEq/L (23-29); Chloride 106 mEq/L (98-107); Chol/HDL Ratio 2.4 (0-4.9); Cholesterol 137 mg/dL (< 200); Globulin 3.5 g/dL (2.4-3.5); Glucose 253 mg/dL (70-105); HDL Cholesterol 56 mg/dL (40-59); LDL Cholesterol,Calculated 74 mg/dL (0-99); Magnesium 1.6 mg/dL (1.6-2.6); Osmolality,Calculated 298 (280-300); Potassium 3.7 mEq/L (3.5-5.1); Sodium 139 mEq/L (136-145); Total Protein 6.8 g/dL (6.4-8.9); Triglycerides 37 mg/dL (< 150); eGFR For African Americans > 60 (> 60); eGFR For Non-African Americans > 60 (> 60)
[2018-01-25 03:23] LABS: Hematocrit 31.7 % (37.5-50.1); Immature Granulocytes % 0.2 % (0-4); Lymphocytes # 0.5 K/mcL (0.6-4.6); Lymphocytes % 11.5 %; Mean Corpuscular HGB Conc 34.7 g/dL (31.6-35.5); Monocytes # 0.1 K/mcL (0.0-1.3); Monocytes % 2.7 %; Neutrophils # 3.8 K/mcL (1.6-8.9); Platelet Count 172 K/mcL (140-400); Red Blood Count 3.14 M/mcL (4.19-5.50); Red Cell Distribution Width 13.3 % (11.5-14.5); Segmented Neutrophils % 85.6 %
[2018-01-25] MEDS: Ipratropium/Albuterol Neb 3 ML IH SCH ×5 (03:46→19:44)
--- NOTE | 2018-01-25 08:04 | Electrocardiograph Report ---
[facility] Test Date: 2018-01-24 Pat Name: Philip Lopez Department: 102 Room: 3B33 Gender: M Fabric Cutter: Ekp : 1930 Requested By: Chris Israel Order Number: [id number] Reading MD: Yo Sanford MD Measurements Intervals [place] Rate: 58 P: 7 PA: 134 QRS: -50 QRSD: 113 T: 56 QT: 409 QTc: 407 Interpretive Statements SINUS BRADYCARDIA MARKED LEFT AXIS DEVIATION Electronically Signed On 01-24-2018 18:56:13 EDT by Yo Sanford MD
[2018-01-25 09:29] LABS: Estimated Average Glucose 134 mg/dl; Hemoglobin A1C 6.3 %
[2018-01-25] MEDS: Primidone 50 MG TABLET PO SCH ×3 (09:35→20:42)
[2018-01-25] MEDS: Furosemide 20 MG TABLET PO SCH (09:35)
[2018-01-25] MEDS: Multivit/Ca/Min/Fe/FA 1 TAB TABLET PO SCH (09:36)
[2018-01-25] MEDS: Aspirin Enteric Coated 81 MG Tablet PO SCH (09:36)
[2018-01-25] MEDS: predniSONE 20 MG TABLET PO SCH (09:36)
--- NOTE | 2018-01-25 18:31 | Internal Med Progress Note ---
Date of Encounter: 01/25/18 Time of Encounter: 18:29 - Assessment and plan (1) CAD (coronary artery disease) Current Visit: Yes Status: Chronic Assessment and plan: History of CAD with [place] July 2017 status post stents 2. Continue aspirin, Lasix, Lipitor, plavix, lisinopril and Inderal Continue cardiac monitoring Qualifiers: Coronary Disease-Associated Artery/Lesion type: [place] artery [place] vs. transplanted heart: [place] heart Associated angina: angina presence unspecified Qualified Code(s): I25.10 - Atherosclerotic heart disease of [place] coronary artery without angina pectoris (2) CHF (congestive heart failure) Current Visit: Yes Status: Chronic Assessment and plan: Non-exacerbated LVEF 40%, normal LV chamber size Mild segmental left ventricular systolic dysfunction. Mild left ventricular diastolic dysfunction. Atypical septal motion consistent with bundle branch block. Normal right and ventricular structure and function. Mild mitral regurg , mild/moderate tricuspid regurg, mild/moderate pulmonary hypertension. Qualifiers: Heart failure type: combined systolic and diastolic Heart failure chronicity: chronic Qualified Code(s): I50.42 - Chronic combined systolic ( congestive) and diastolic (congestive) heart failure (3) COPD (chronic obstructive pulmonary disease) Current Visit: Yes Status: Chronic Assessment and plan: COPD exacerbation overlying unresolved upper respiratory infection. Patient [facility] and finished the antibiotic on 01/16/18. He states his symptoms worsen. Respiratory infection panel reviewed with negative findings Sputum culture has been ordered and needs to be collected. Blood cultures are pending 2. Supplemental oxygen with titration to maintain sats greater than 92 %. DuoNeb every 4 hours scheduled. Tessalon for cough. By mouth Levaquin 750 mg daily. Qualifiers: COPD type: unspecified COPD Qualified Code(s): J44.9 - Chronic obstructive pulmonary disease, unspecified (4) Cough Current Visit: Yes Status: Acute Assessment and plan: Tessalon Perles for cough control (5) DVT prophylaxis Current Visit: Yes Status: Acute Assessment and plan: SCDs in patient with history of GI bleed (6) Elevated troponin I level Current Visit: Yes Status: Acute Assessment and plan: Troponin trended from 0.04-0.03 patient with no chest pain (7) HLD (hyperlipidemia) Current Visit: Yes Status: Chronic Assessment and plan: Lipid panel reviewed continue statin Qualifiers: Hyperlipidemia type: pure hypercholesterolemia Qualified Code(s): E78.00 - Pure hypercholesterolemia, unspecified; E78.0 - Pure hypercholesterolemia (8) HTN (hypertension) Current Visit: Yes Status: Chronic Assessment and plan: Blood pressure stable Continue current medications Qualifiers: Hypertension type: essential hypertension Qualified Code(s): I10 - Essential (primary) hypertension (9) Unsteadiness on feet Current Visit: Yes Status: Chronic Assessment and plan: Patient to return to [facility], he has a bed hold - Subjective Interval history: Patient is lying in bed with his signs of bedside. He is feeling better. He remains on O2 he states the respiratory treatments are helping him. He is afebrile. He will return to [facility] on discharge. - Constitutional Vitals: Temp Pulse Resp BP Pulse Ox 98.0 F 75 18 134/54 97 01/25/18 15:02 01/25/18 15:02 01/25/18 15:45 01/25/18 15:02 01/25/18 15:45 General appearance: Present: cooperative, A&O X 3, pleasant, answers questions appropriately - Head Head exam: Present: atraumatic, normocephalic - Eye Eye exam: Present: PERRL, conjuntiva pink, sclera anicteric Pupils: Present: PERRL - Neck Neck exam general surgery: Present: supple, trachea midline. Absent: lymphadenopathy - Respiratory Respiratory exam: Present: decreased breath sounds, prolonged expiratory phase, rhonchi, wheezes. Absent: accessory muscle use, rales - Cardiovascular Cardiovascular exam: Present: RRR, +S1, +S2. Absent: diastolic murmur, gallop, rubs, systolic murmur - GI/Abdominal GI/Abdominal exam: Present: normal bowel sounds, soft, no peritoneal signs. Absent: distended, tenderness - Extremities Exam Extremities exam: Present: warm, radial pulses palpable and symmetrical. Absent : calf tenderness, cyanotic, pedal edema - Neurological Exam Neurological exam: Present: alert, CN II-XII intact, oriented X3, no focal deficits. Absent: pronater drift, facial droop, speech deficit - Skin Skin exam: Present: dry, intact, normal color, warm Internal Medicine: Result - Labs CBC & Chem 7: 01/25/18 02:41 01/25/18 02:41 Labs: Short CBC 01/25/18 Range/Units 02:41 WBC 4.4 (4.3-11.1) K/mcL Hgb 11.0 L (12.9-16.9) g/dL Hct 31.7 L (37.5-50.1) % Plt Count 172 (140-400) K/mcL Neutrophils # 3.8 (1.6-8.9) K/mcL BMP 01/25/18 02:41 Sodium 139 Potassium 3.7 Chloride 106 Carbon Dioxide 25 BUN 16 Creatinine 0.65 L Glucose 253 H Calcium 8.9 Cardiac Enzymes 01/24/18 01/25/18 Range/Units 20:56 02:41 Troponin I 0.04 H* 0.03 (< 0.04) ng/mL Liver Function 01/25/18 Range/Units 02:41 Total Bilirubin 0.5 (0.3-1.0) mg/dL AST 24 (13-39) Units/L ALT 18 (7-52) Units/L Alkaline Phosphatase 65 (34-104) Units/L Albumin 3.3 L (3.5-5.7) g/dL - Impressions Impressions Echocardiogram 01/25/18 11:00 Impressions: LVEF 40%. Normal LV chamber size. Mild segmental left ventricular systolic dysfunction. Mild left ventricular diastolic dysfunction. Atypical septal motion consistent with bundle branch block. Normal right ventricular structure and function. Mild mitral regurgitation. Mild-moderate tricuspid regurgitation. Mild-moderate pulmonary hypertension. Estimated RVSP is 45 mmHg. Left Ventricular Wall Motion: Rest Echo Findings The apex, apical septal, mid inferior septal and mid anterior septal underwood were hypokinetic. All other wall segments showed normal motion. Findings: Study Quality * Technically sub-optimal due to poor echocardiographic windows. ECG Findings * Sinus rhythm with BBB. Left Ventricle * LVEF 40%. * Normal LV chamber size. * Mild segmental left ventricular systolic dysfunction. * Mild left ventricular diastolic dysfunction. * Atypical septal motion consistent with bundle branch block. Right Ventricle * Normal right ventricular structure and function. Left Atrium * Moderately dilated left atrium. Right Atrium * Mildly dilated right atrium. Interatrial Septum * Interatrial septum not well evaluated. Aortic Valve * Aortic valve not well visualized. * Grossly, mildly calcified aortic valve leaflets. * Trace aortic regurgitation. * No aortic stenosis. Mitral Valve * Mildly thickened mitral valve leaflets. * Mild mitral regurgitation. * No mitral stenosis. Tricuspid Valve * Normal tricuspid valve structure. * Mild-moderate tricuspid regurgitation. * Mild-moderate pulmonary hypertension. * Estimated RVSP is 45 mmHg. Pulmonic Valve * Normal pulmonic valve structure. * Mild pulmonic regurgitation. Aorta * Normally sized aortic root. Pericardium * The pericardium appears normal. IVC * The IVC is not well evaluated. Pulmonary Artery * Pulmonary artery not well visualized. - VTE Documentation of Mechanical Device: Venous foot pump, device Consult Discharge Plan - Plan Referrals: [facility] [Primary Care Provider] -
[2018-01-25] MEDS ORDERED: Benzonatate 100 MG CAPSULE PO PRN (18:41)
[2018-01-25] MEDS: levoFLOXacin 750 MG TABLET PO SCH (20:42)
[2018-01-26] MEDS: Ipratropium/Albuterol Neb 3 ML IH SCH ×5 (00:07→15:47)
[2018-01-26 05:24] LABS: Basophils % 0.2 %; Eosinophils % 0.2 %; Hematocrit 29.8 % (37.5-50.1); Hemoglobin 10.2 g/dL (12.9-16.9); Immature Granulocytes % 0.5 % (0-4); Lymphocytes # 1.1 K/mcL (0.6-4.6); Mean Corpuscular HGB Conc 34.2 g/dL (31.6-35.5); Mean Corpuscular Hemoglobin 34.7 pg (28.0-33.3); Mean Corpuscular Volume 101.4 fL (83.0-100.0); Mean Platelet Volume 9.8 fL (9.4-12.4); Monocytes # 0.5 K/mcL (0.0-1.3); Monocytes % 7.9 %; Neutrophils # 4.2 K/mcL (1.6-8.9); Platelet Count 181 K/mcL (140-400); Red Blood Count 2.94 M/mcL (4.19-5.50); Red Cell Distribution Width 13.5 % (11.5-14.5); Segmented Neutrophils % 72.2 %
[2018-01-26 05:41] LABS: Alanine Aminotransferase 22 Units/L (7-52); Albumin 3.1 g/dL (3.5-5.7); Albumin/Globulin Ratio 0.9 (1.1-2.2); Alkaline Phosphatase 62 Units/L (34-104); Aspartate Amino Transferase 29 Units/L (13-39); BUN/Creatinine Ratio 24 (6-26); Bilirubin,Total 0.4 mg/dL (0.3-1.0); Blood Urea Nitrogen 23 mg/dL (8-23); Calcium 8.8 mg/dL (8.6-10.3); Carbon Dioxide 26 mEq/L (23-29); Chloride 107 mEq/L (98-107); Globulin 3.5 g/dL (2.4-3.5); Glucose 138 mg/dL (70-105); Osmolality,Calculated 298 (280-300); Potassium 3.7 mEq/L (3.5-5.1); Sodium 141 mEq/L (136-145); Total Protein 6.6 g/dL (6.4-8.9); eGFR For African Americans > 60 (> 60); eGFR For Non-African Americans > 60 (> 60)
[2018-01-26] MEDS: Primidone 50 MG TABLET PO SCH ×2 (09:57)
[2018-01-26] MEDS: predniSONE 20 MG TABLET PO SCH (09:58)
[2018-01-26] MEDS: Furosemide 20 MG TABLET PO SCH (09:58)
[2018-01-26] MEDS: Aspirin Enteric Coated 81 MG Tablet PO SCH (09:58)
[2018-01-26] MEDS: Multivit/Ca/Min/Fe/FA 1 TAB TABLET PO SCH (09:58)
[2018-01-26 11:28] VITALS: BP 120/86
--- NOTE | 2018-01-26 11:34 | Discharge Summary ---
Orders not resulted at time of discharge: Pending orders 01/24/18 20:34 Culture,Sputum with Gram Stain [RM] Stat 01/24/18 20:56 Culture,Blood [BC] Stat 01/24/18 21:00 Culture,Blood,Additional [BC] Stat 01/27/18 04:00 Activated Partial Thrombo Time [COAG] AM 0400 Complete Blood Count [HEME] AM 0400 Comprehensive Metabolic Panel AM 0400 01/28/18 04:00 Complete Blood Count [HEME] AM 0400 Comprehensive Metabolic Panel AM 0400 01/29/18 04:00 Complete Blood Count [HEME] AM 0400 Comprehensive Metabolic Panel AM 0400 Date of Encounter: 01/26/18 Time of Encounter: 11:34 - Discharge Diagnosis (1) CAD (coronary artery disease) Priority: Primary Status: Chronic Qualifiers: Coronary Disease-Associated Artery/Lesion type: [place] artery [place] vs. transplanted heart: [place] heart Associated angina: angina presence unspecified Qualified Code(s): I25.10 - Atherosclerotic heart disease of [place] coronary artery without angina pectoris (2) CHF (congestive heart failure) Priority: Primary Status: Chronic Qualifiers: Heart failure type: combined systolic and diastolic Heart failure chronicity: chronic Qualified Code(s): I50.42 - Chronic combined systolic ( congestive) and diastolic (congestive) heart failure (3) COPD (chronic obstructive pulmonary disease) Priority: Primary Status: Chronic Qualifiers: COPD type: unspecified COPD Qualified Code(s): J44.9 - Chronic obstructive pulmonary disease, unspecified (4) Cough Priority: Primary Status: Acute (5) Elevated troponin I level Priority: Primary Status: Acute (6) HLD (hyperlipidemia) Priority: Primary Status: Chronic Qualifiers: Hyperlipidemia type: pure hypercholesterolemia Qualified Code(s): E78.00 - Pure hypercholesterolemia, unspecified; E78.0 - Pure hypercholesterolemia (7) HTN (hypertension) Priority: Primary Status: Chronic Qualifiers: Hypertension type: essential hypertension Qualified Code(s): I10 - Essential (primary) hypertension (8) Unsteadiness on feet Priority: Primary Status: Chronic Hospital course: Mr. Lopez is a 87 year old male who presented to the hospital with COPD exacerbation overlying unresolved upper respiratory infection and had been treated with azithromycin at his skilled facility. His symptoms worsened and he presented to emergency room for evaluation. I respiratory infection panel was negative. Sputum culture was finally collected and a preliminary reading revealed moderate WBCs, few epithelial cells. Gram-positive cocci gram- negative rods and gram-positive rods. Will await final sensitivity. Blood cultures revealed no growth. The patient has a history of CHF which was non- exacerbated on this visit his LVEF was 40% with a normal LV chamber size. He has mild segmental left ventricular systolic dysfunction and mild left ventricular diastolic dysfunction. He has atypical septal motion consistent with bundle branch block. A history of CAD with an ME in July 2017 status post 2 stents. He had no chest pain during this stay. Continue aspirin Lasix Lipitor Plavix lisinopril and Inderal. He was discharged on Tessalon Perles for his cough. Troponins were trended at 0.04-0.03 in the absence of chest pain as well as determined to be secondary to a COPD exacerbation and bronchitis. Blood pressure was well controlled during his stay and he will continue the same medication. Patient had no questions on discharge nor his son who is at the bedside. Discharge discussed with: patient, family, nurse, social work - Time Spent with Patient Total time spent providing and/or coordinating discharge services: Less than 30 minutes - Discharge Medications Prescriptions: levoFLOXacin [Levaquin] 750 mg PO Q24H #5 tablet predniSONE [Prednisone] 10 mg PO DAILY #18 tab.ds.pk Home Medications: Aspirin Enteric Coated [Aspirin EC] 81 mg PO DAILY 07/22/17 [History] Atorvastatin Calcium [Lipitor] 80 mg PO HS 07/22/17 [History] Meclizine HCl [Verticalm] 25 mg PO TID PRN 07/22/17 [History] Multivitamin [Multi-Day Vitamins] 1 tab PO DAILY 07/22/17 [History] Primidone [Mysoline] 100 mg PO QAM 07/22/17 [History] Tamsulosin [Flomax] 0.4 mg PO HS 07/22/17 [History] Clopidogrel [Plavix] 75 mg PO DAILY #30 tab 07/24/17 [Rx] Allopurinol [Zyloprim 100 MG] 100 mg PO DAILY 09/01/17 [History] Docusate [Colace] 100 mg PO BID 09/01/17 [History] Furosemide [Lasix] 20 mg PO DAILY 09/01/17 [History] Lisinopril 5 mg PO DAILY 09/01/17 [History] Propranolol [Inderal] 40 mg PO BID 09/01/17 [History] Carbamide Peroxide [Ear Drops] 2 drop OT Q24H PRN 01/24/18 [History] Nitroglycerin 0.4 mg SL Q5M PRN 01/24/18 [History] Primidone [Mysoline] 50 mg PO BID 01/24/18 [History] Benzonatate [Tessalon] 200 mg PO TID PRN capsule 01/26/18 [Rx] Ipratropium/Albuterol Neb [Duoneb] 3 ml IH Q6HR #0 inhsol 01/26/18 [Rx] levoFLOXacin [Levaquin] 750 mg PO Q24H #5 tablet 01/26/18 [Rx] predniSONE [Prednisone] 10 mg PO DAILY #18 tab.ds.pk 01/26/18 [Rx] Allergies/Adverse Reactions: 3 Allergy/AdvReac Type Severity Reaction Status Date / Time gabapentin AdvReac See Verified 07/22/17 19:07 Comments Date of admission: 01/24/18 17:29 [facility] Consults: 01/24/18 19:54 Consult to Service Consultant [CONS] Routine Reason for SW Consult: Please assess patient for possible home needs for post -discharge planning. 01/24/18 19:55 Consult to Occupational Therapy [CONS] Routine Comment: Evaluate, develop and implement POC Reason for Consult: Patient and son report hx of falls and unsteadiness w/ambulation. Please assess patient's ambulation strength, stability , safety, and possible home assistive/ rehabilitation needs for post-discharge planning. Does patient have active BEDREST order?: Yes Is patient medically & hemodynamically stable?: Yes Patient assessed for mobility or mobilized this visit?: No 01/24/18 19:56 Consult to Physical Therapy [CONS] Routine Comment: Evaluate, develop and implement POC Reason for Consult: Patient and son report hx of falls and unsteadiness w/ambulation. Please assess patient's ambulation strength, stability , safety, and possible home assistive/ rehabilitation needs for post-discharge planning. Does patient have active BEDREST order?: Yes Is patient medically & hemodynamically stable?: Yes Patient assessed for mobility or mobilized this visit?: No Discharging clinician: Jeanine Jovel Anticipated date of discharge: 01/26/18 - Constitutional Vitals: Temp Pulse Resp BP Pulse Ox 98.6 F 99 17 120/86 99 01/26/18 11:27 01/26/18 11:27 01/26/18 11:27 01/26/18 11:27 01/26/18 11:27 General appearance: Present: cooperative, A&O X 3, pleasant, answers questions appropriately - Head Head exam: Present: atraumatic, normocephalic - Eye Eye exam: Present: PERRL, conjuntiva pink, sclera anicteric Pupils: Present: PERRL - Neck Neck exam general surgery: Present: supple, trachea midline. Absent: lymphadenopathy - Respiratory Respiratory exam: Present: decreased breath sounds, rhonchi. Absent: accessory muscle use, rales, wheezes Additional comments: Cough is much improved with no bronchospasm on forced expiration. Cough is productive for some thick green sputum. Some scattered rhonchi but sounds much better today - Cardiovascular Cardiovascular exam: Present: RRR, +S1, +S2. Absent: diastolic murmur, gallop, rubs, systolic murmur - GI/Abdominal GI/Abdominal exam: Present: normal bowel sounds, soft, no peritoneal signs. Absent: distended, tenderness - Extremities Exam Extremities exam: Present: warm, radial pulses palpable and symmetrical. Absent : calf tenderness, cyanotic, pedal edema - Neurological Exam Neurological exam: Present: alert, CN II-XII intact, oriented X3, no focal deficits. Absent: pronater drift, facial droop, speech deficit - Skin Skin exam: Present: dry, intact, normal color, warm - Patient Status Disposition: Transfer SNF Condition: Good Functional capacity at discharge: uses cane/walker Overall status at discharge: patient is progressing back to baseline - Discharge Instructions [facility] With: [facility] [Primary Care Provider[facility] - - Diet and Activity Activity: increase activity as tolerated Diet: advance to your usual diet - VTE Documentation of Mechanical Device: Venous foot pump, device
--- NOTE | 2018-01-26 11:50 | Physician Discharge Referral ---
ExtendedCare Referral Info Provider in Charge: gogo merrill Institutional Level of Care: Skilled - Diagnosis (1) CAD (coronary artery disease) Priority: Primary Status: Chronic (2) CHF (congestive heart failure) Priority: Primary Status: Chronic (3) COPD (chronic obstructive pulmonary disease) Priority: Primary Status: Chronic (4) Cough Priority: Primary Status: Acute (5) Elevated troponin I level Priority: Primary Status: Acute (6) HLD (hyperlipidemia) Priority: Primary Status: Chronic (7) HTN (hypertension) Priority: Primary Status: Chronic (8) Unsteadiness on feet Priority: Primary Status: Chronic (9) Bronchitis Priority: Primary Status: Acute - Transfer Medications Prescriptions: levoFLOXacin [Levaquin] 750 mg PO Q24H #5 tablet predniSONE [Prednisone] 10 mg PO DAILY #18 tab.ds.pk Home Medications: Aspirin Enteric Coated [Aspirin EC] 81 mg PO DAILY 07/22/17 [History] Atorvastatin Calcium [Lipitor] 80 mg PO HS 07/22/17 [History] Meclizine HCl [Verticalm] 25 mg PO TID PRN 07/22/17 [History] Multivitamin [Multi-Day Vitamins] 1 tab PO DAILY 07/22/17 [History] Primidone [Mysoline] 100 mg PO QAM 07/22/17 [History] Tamsulosin [Flomax] 0.4 mg PO HS 07/22/17 [History] Clopidogrel [Plavix] 75 mg PO DAILY #30 tab 07/24/17 [Rx] Allopurinol [Zyloprim 100 MG] 100 mg PO DAILY 09/01/17 [History] Docusate [Colace] 100 mg PO BID 09/01/17 [History] Furosemide [Lasix] 20 mg PO DAILY 09/01/17 [History] Lisinopril 5 mg PO DAILY 09/01/17 [History] Propranolol [Inderal] 40 mg PO BID 09/01/17 [History] Carbamide Peroxide [Ear Drops] 2 drop OT Q24H PRN 01/24/18 [History] Nitroglycerin 0.4 mg SL Q5M PRN 01/24/18 [History] Primidone [Mysoline] 50 mg PO BID 01/24/18 [History] Benzonatate [Tessalon] 200 mg PO TID PRN capsule 01/26/18 [Rx] Ipratropium/Albuterol Neb [Duoneb] 3 ml IH Q6HR #0 inhsol 01/26/18 [Rx] levoFLOXacin [Levaquin] 750 mg PO Q24H #5 tablet 01/26/18 [Rx] predniSONE [Prednisone] 10 mg PO DAILY #18 tab.ds.pk 01/26/18 [Rx] Allergies/Adverse Reactions: 3 Allergy/AdvReac Type Severity Reaction Status Date / Time gabapentin AdvReac See Verified 07/22/17 19:07 Comments - Respiratory Orders Smoking Cessation: Smoking cessation has been advised. For more information, call the [place] Tobacco Quit Line at 3-927-ERZNNOW. - Advance Directives Code Status: Full Code - Mobility Orders Ambulate - Rehabiliation Orders Rehab Potential: Good - Diet Orders No Concentrated Sweets, Cardiac CERTIFICATION: I certify that the transfer of the above named patient to an Extended Care Facility is necessary for the continuing treatment of the diagnosis listed. The above information is true and accurate reflection of patient's current condition. Confidential - Redisclosure prohibited without a patient's written consent.
== END 2018-01-26 15:55 ==
LOC: 3BNU 13:47 → EMEROO 13:47 → 3BNU 18:33
PROVIDERS: ADMIT Student in an Organized Health Care Education/Training Program; ATTEND Registered Nurse